=== PATIENT | female | born 1970 | race Caucasian/White ===

== ENCOUNTER 2018-07-02 10:42 | Inpatient (IN) ==
--- NOTE | 2018-07-02 12:12 | Emergency Department Note ---
Disposition Clinical Impression: Lower extremity edema, Bleeding from wound Cellulitis Qualifiers: Laterality: right Disposition: Still a Patient Condition: Fair Extremity Problem HPI - General Chief complaint: ED Extremity Problem,Nontraumatic Stated complaint: hematoma on right leg Time Seen by Provider: 07/02/18 10:59 Source: EMS Limitations: no limitations - History of Present Illness HPI Narrative: 48 YO F with right lower leg wound. Patient reports that she has had this wound for months and it has been bleeding since dressing change yesterday. Seeing Dr. Ambrocio for management. She has come from [facility]. Patient reports that she has not received proper wound care at [facility], not receiving proper and timely dressing change. She would like to be admitted for care. She reports night sweats, fever, and chills for a week. Has tingling of extremities and weakness secondary to diabetic neuropathy. Was diagnosed with cellulitis bilateral of lower extremities on vancomycin. Denies CP and SOB. Pain Scale: 10 - Related Data Home Medications Medication Instructions Recorded Confirmed Diltiazem CD (24hr) [Cardizem CD] 240 mg PO BID 08/11/15 03/21/18 HydrOXYzine 1 - 2 tab PO Q6H 08/11/15 03/21/18 Cyanocobalamin (Vitamin B-12) 1,000 mcg PO DAILY 03/22/17 03/21/18 [Vitamin B12] Ferrous Sulfate 325 mg PO BIDWM 03/22/17 03/21/18 Furosemide [Lasix] 2 tab PO HS 03/22/17 03/21/18 Insulin Glargine,Hum.rec.anlog 60 unit SQ BID 03/22/17 03/21/18 [Toujeo Solostar] Melatonin 5 mg PO HS 03/22/17 03/21/18 Metformin HCl [Fortamet] 1,000 mg PO BID 03/22/17 03/21/18 Methocarbamol [Robaxin] 750 mg PO HS 03/22/17 03/21/18 Dulaglutide [Trulicity] 0.75 mg SQ 03/21/18 Montelukast [Singulair] 10 mg PO HS 03/21/18 03/21/18 Oxybutynin [Ditropan] 5 mg PO DAILY 03/21/18 03/21/18 Vancomycin HCl 1G/200 ml Bag 06/27/18 Atorvastatin [Lipitor] 40 mg PO HS 07/02/18 07/02/18 Cetirizine HCl [All Day Allergy] 10 mg PO DAILY 07/02/18 07/02/18 FLUoxetine HCl [Prozac] 40 mg PO DAILY 07/02/18 07/02/18 Insulin LISPRO [HumaLOG] 50 units SQ TIDWM 07/02/18 07/02/18 Levofloxacin [Levaquin] 750 mg PO DAILY 07/02/18 07/02/18 Losartan Potassium [Cozaar] 50 mg PO DAILY 07/02/18 07/02/18 Omeprazole [PriLOSEC] 40 mg PO DAILY 07/02/18 07/02/18 Oxycodone HCl 15 mg PO TID 07/02/18 07/02/18 Pregabalin [Lyrica] 150 mg PO TID 07/02/18 07/02/18 Promethazine [Phenergan] 25 mg PO Q8H PRN 07/02/18 07/02/18 Venlafaxine HCl [Venlafaxine HCl 75 mg PO Q48H 07/02/18 07/02/18 ER] Previous Rx's Medication Instructions Recorded Rivaroxaban [Xarelto] 10 mg PO DAILY #30 tablet 03/21/18 Allergies Allergy/AdvReac Type Severity Reaction Status Date / Time Penicillins Allergy Intermediate Rash Verified 03/21/18 13:13 pioglitazone [From Actos] Allergy Intermediate See Verified 03/21/18 13:13 Comments sitagliptin [From Januvia] Allergy Intermediate See Verified 03/21/18 13:13 Comments Sulfa (Sulfonamide Allergy Intermediate Hives Verified 03/21/18 13:13 Antibiotics) nabumetone Allergy Muscle Pain Verified 03/21/18 13:13 sulfamethoxazole Allergy Rash Verified 03/21/18 13:13 [From Bactrim] trimethoprim [From Bactrim] Allergy Rash Verified 03/21/18 13:13 Constitutional: Reports: fever, chills, weakness, night sweats Cardiovascular: Denies: chest pain, palpitations Respiratory: Denies: cough, dyspnea Gastrointestinal: Denies: abdominal pain, nausea, vomiting, diarrhea, constipation Genitourinary: Reports: other (states she has incontinence and wears adult diapers). Denies: urgency, dysuria, frequency Past Medical History - Past Medical History Medical history: Reports: DVT, diabetes, GERD, hyperlipidemia, hypertension Surgical history: Reports: appendectomy Psychiatric history: Reports: anxiety, depression - Social History Smoking Status: Former smoker Smokeless Tobacco Status: No Alcohol use: Reports: none Drug use: Reports: none Physical Exam - General Limitations: no limitations General appearance: alert, in no apparent distress - Head Head exam: atraumatic, normocephalic - Chest Chest inspection: Present: normal inspection, symmetric chest wall rise - Respiratory Respiratory exam: Present: normal lung sounds bilaterally - Cardiovascular Cardiovascular exam: Present: regular rate, normal rhythm, normal heart sounds - Expanded Lower Extremity Exam Lower leg exam: Present: full ROM, tenderness, swelling, laceration, deformity, erythema, other ([id number] sanguinous, odorous, draning wound with irregular borders. Cellulitis b/l. Bleeding is controlled.). Absent: abrasion, dislocation, Homans' sign, Achilles tendon intact Foot/toe exam: Present: swelling, ecchymosis Neurovascular/Tendon exam: Present: normal capillary refill - Neurological Exam Neurological exam: Present: alert, oriented X3 Course Course Narrative: 48 YO F with RLE wound in foot with history of bilateral cellulitis on vanc. RLE wound is [id number], draining, and sanguinous. Spoke to Dr. Ambrocio and he agrees to manage her wound if she is admitted. Asked us to order wound cultures. Spoke with hospitalist and he is okay to admit her and asks us to order LE CT. to monitor cellulitis. - Ordered BMP, CBC, RLE CT - Patient admitted to hospitalist - Ordered wound culture - Reevaluation(s) Reevaluation #1: Patient's CBC and BMP back. Slightly low Hgb 10, no treatment necessary. Okay to admit. Vital Signs Temperature 98.8 F 07/02/18 10:51 Pulse Rate 88 07/02/18 10:51 Respiratory Rate 18 07/02/18 10:51 Blood Pressure 120/59 07/02/18 10:51 O2 Sat by Pulse Oximetry 95 07/02/18 10:51 Temperature 98.8 F 07/02/18 10:51 Pulse Rate 85 07/02/18 13:17 Respiratory Rate 18 07/02/18 10:51 Blood Pressure 120/59 07/02/18 10:51 O2 Sat by Pulse Oximetry 100 07/02/18 13:17 Oxygen Delivery Oxygen Delivery Room Air Extremity Problem, Nontraumati - Lab Data Result diagrams: 07/02/18 14:10 07/02/18 14:10
--- NOTE | 2018-07-02 12:47 | Emergency Department Note ---
Disposition Clinical Impression: Lower extremity edema, Bleeding from wound Cellulitis Qualifiers: Site of cellulitis: extremity Site of cellulitis of extremity: lower extremity Laterality: right Qualified Code(s): L03.115 - Cellulitis of right lower limb Disposition: Admitted As Inpatient Condition: Fair General Adult HPI - General Chief complaint: ED Extremity Problem,Nontraumatic Stated complaint: hematoma on right leg Time Seen by Provider: 07/02/18 10:59 Source: EMS Limitations: no limitations Nursing Notes Reviewed: Yes Vital Signs Reviewed: Yes - History of Present Illness Pain Scale: 10 - Related Data Home Medications Medication Instructions Recorded Confirmed Diltiazem CD (24hr) [Cardizem CD] 240 mg PO BID 08/11/15 03/21/18 HydrOXYzine 1 - 2 tab PO Q6H 08/11/15 03/21/18 Insulin ASPART [NovoLOG] 0 unit SQ AD 08/11/15 03/21/18 Omeprazole [PriLOSEC] 40 mg PO QAM 08/11/15 03/21/18 OxyCODONE Immed Rel [Roxicodone] 15 mg PO TID PRN 08/11/15 03/21/18 Promethazine [Phenergan] 1 tab PO Q4H PRN 08/11/15 03/21/18 Venlafaxine HCl [Effexor Xr] 3 tab PO HS 08/11/15 03/21/18 Cyanocobalamin (Vitamin B-12) 1,000 mcg PO DAILY 03/22/17 03/21/18 [Vitamin B12] Ferrous Sulfate 325 mg PO BIDWM 03/22/17 03/21/18 Furosemide [Lasix] 2 tab PO HS 03/22/17 03/21/18 Insulin Glargine,Hum.rec.anlog 60 unit SQ BID 03/22/17 03/21/18 [Toujeo Solostar] Ipratropium [place] 2 spray NS BID 03/22/17 03/21/18 Melatonin 5 mg PO HS 03/22/17 03/21/18 Metformin HCl [Fortamet] 1,000 mg PO BID 03/22/17 03/21/18 Methocarbamol [Robaxin] 750 mg PO HS 03/22/17 03/21/18 Pregabalin [Lyrica] 150 mg PO TID 03/22/17 03/21/18 Dulaglutide [Trulicity] 0.75 mg SQ 03/21/18 Montelukast [Singulair] 10 mg PO HS 03/21/18 03/21/18 Oxybutynin [Ditropan] 5 mg PO DAILY 03/21/18 03/21/18 Rosuvastatin Calcium [Crestor] 20 mg PO 03/21/18 Insulin Glargine,Hum.rec.anlog 0 units SQ 06/27/18 [Toujeo Solostar] Vancomycin HCl 1G/200 ml Bag 06/27/18 Previous Rx's Medication Instructions Recorded Lactobacillus Acidophilus 1 each PO TID #42 capsule 03/21/18 [Acidophilus Lactobacillus] Rivaroxaban [Xarelto] 10 mg PO DAILY #30 tablet 03/21/18 Allergies Allergy/AdvReac Type Severity Reaction Status Date / Time Penicillins Allergy Intermediate Rash Verified 03/21/18 13:13 pioglitazone [From Actos] Allergy Intermediate See Verified 03/21/18 13:13 Comments sitagliptin [From Januvia] Allergy Intermediate See Verified 03/21/18 13:13 Comments Sulfa (Sulfonamide Allergy Intermediate Hives Verified 03/21/18 13:13 Antibiotics) nabumetone Allergy Muscle Pain Verified 03/21/18 13:13 sulfamethoxazole Allergy Rash Verified 03/21/18 13:13 [From Bactrim] trimethoprim [From Bactrim] Allergy Rash Verified 03/21/18 13:13 Past Medical History - Past Medical History Medical history: Reports: DVT, diabetes, GERD, hyperlipidemia, hypertension Surgical history: Reports: appendectomy Psychiatric history: Reports: anxiety, depression - Social History Smoking Status: Former smoker Smokeless Tobacco Status: No Alcohol use: Reports: none Drug use: Reports: none Physical Exam - General Limitations: no limitations General appearance: alert, in no apparent distress Course Vital Signs Temperature 98.8 F 07/02/18 10:51 Pulse Rate 88 07/02/18 10:51 Respiratory Rate 18 07/02/18 10:51 Blood Pressure 120/59 07/02/18 10:51 O2 Sat by Pulse Oximetry 95 07/02/18 10:51 Temperature 98.8 F 07/02/18 10:51 Pulse Rate 85 07/02/18 13:17 Respiratory Rate 18 07/02/18 10:51 Blood Pressure 120/59 07/02/18 10:51 O2 Sat by Pulse Oximetry 100 07/02/18 13:17 Oxygen Delivery Oxygen Delivery Room Air Medical Decision Making - MDM Narrative Medical decision making narrative: 1330 hrs.: Spoke the hospital states that they would take the patient. Her labs are drawn in the outpatient setting and we will have access to the sore repeat this today. They also asked that we get a CT of that leg which I think is reasonable. Once we see the labs back we will go ahead and bring her upstairs for admission. And we have also spoken with podiatry they will see her in the hospital. Impression is acute on chronic cellulitis right lower extremity. #2 is bleeding wound to right lower extremity. #3 is diabetes. Chronic Lower Extremity CT 07/02/18 12:48 IMPRESSION: 1. Large mildly complex fluid collection centered within the lateral soft tissues of the right lower extremity measuring approximately 5.0 x 13.5 x 22.5 cm. Findings most suggestive of hematoma given history of trauma. No gas identified within the fluid collection. 2. Extensive soft tissue edema with associated skin thickening involving the right lower extremity. Similar edema and skin thickening of the partially imaged left lower extremity. Findings may reflect longstanding venous stasis/lymph edema. Recommend clinical correlation to exclude superimposed cellulitis. 3. No acute osseous abnormality. No CT evidence for osteomyelitis. D/ / Camron Chery MD / Camron Chery MD Interpreting Provider: Camron Chery MD 1455 hrs.: Patient's anemia has a hemoglobin 10.5 which is good for her. CT is done she has got her vancomycin for this morning and hospitalist as accepted her for admission consult to podiatry's in place. - Lab Data Result diagrams: 07/02/18 14:10 07/02/18 14:10 Attestation Statement - Attestation Attestation: This documentation is done with the assistance of Dragbrendan dictation. Despite efforts made to ensure accuracy, there may be inaccuracies in jewish history professor or spelling and typographical errors. I examined this patient and my medical decision-making was reviewed with the Resident Physician. I agree with the documented findings, disposition and treatment plan as described except to the extent set forth below. Patient seen and evaluated by Dr. lozano and myself, I agree with his evaluation management plan , I supervised the care the patient's stay. Patient presents today with an area on her right leg that has been bleeding for the last 24 hours. She has a history of chronic lymphedema and cellulitis in her lower extremities. She has been seen by Dr. Ambrocio here. She is on vancomycin tolerating that well. She has a PICC line in her right arm. She says this area started bleeding yesterday after a dressing change and they have not been ill to get it stopped. We removed the dressing. She still having oozing from the site that about 4 x 6 cm along the lateral aspect of the right calf. She says she does not feel much in her legs it is not tender. She still has cellulitis on the area. This is an are not improved compared to the left leg. She has no bony tenderness. No crepitance. She has chronic changes on the leg consistent with her previous cellulitis. And this is on multiple episodes in the past according to her. We will check labs she had them checked at the skilled nursing today but we do not have access to those. Which speak with Dr. Ambrocio he asked that we do not get a wound culture on the area. And we will bring her in for admission. She is in agreement with this plan.
[2018-07-02 14:28] LABS: Basophils % 0.4 %; Eosinophils # 0.3 K/mcL (0.0-0.6); Eosinophils % 3.1 %; Hematocrit 31.4 % (35.3-44.9); Hemoglobin 10.1 g/dL (11.5-15.4); Immature Granulocytes % 1.7 % (0-4); Lymphocytes # 0.9 K/mcL (0.6-4.6); Lymphocytes % 10.5 %; Mean Corpuscular HGB Conc 32.2 g/dL (31.6-35.5); Mean Corpuscular Hemoglobin 30.6 pg (28.0-33.3); Mean Corpuscular Volume 95.2 fL (83.0-100.0); Mean Platelet Volume 10.2 fL (9.4-12.4); Monocytes # 0.7 K/mcL (0.0-1.3); Monocytes % 8.5 %; Neutrophils # 6.4 K/mcL (1.6-8.9); Platelet Count 273 K/mcL (140-400); Red Cell Distribution Width 14.2 % (11.5-14.5); Segmented Neutrophils % 75.8 %
[2018-07-02 14:45] LABS: BUN/Creatinine Ratio 10 (6-26); Blood Urea Nitrogen 8 mg/dL (6-20); Calcium 8.9 mg/dL (8.6-10.3); Carbon Dioxide 34 mEq/L (23-29); Chloride 101 mEq/L (98-107); Glucose 91 mg/dL (70-105); Osmolality,Calculated 290 (280-300); Potassium 3.5 mEq/L (3.5-5.1); Sodium 141 mEq/L (136-145); eGFR For Non-African Americans > 60 (> 60)
--- NOTE | 2018-07-02 16:10 | Internal Med History&Physical ---
Addendum entered and electronically signed by Selma Overton CNP 07/02/18 16:49: [facility]. Original Note: <Selma Overton - Last Filed: 07/02/18 16:11> Date of Encounter: 07/02/18 Time of Encounter: 15:55 Internal Medicine - H&P: HPI Chief complaint: Right lower extremity cellulitis Admitted From: Long-term Nursing Facility Plans for Post Hospital Care: Transfer Residential Facility History of present illness: Ms. Chiang is a 48 year old female with past medical history of GERD, hypertension, diabetes, morbid obesity, lymphedema, COLIN. Patient was admitted to the emergency department from [facility] where she is staying for rehabilitation and wound care, for acute on chronic right lower extremity cellulitis, bleeding from her wound. Pt states that she has had cellulitis for 3 weeks. She has been getting wound care at [facility] and reports that yesterday during cleaning and dressing change, her lateral RLE "popped open and squirted at them." Pt with large open, bleeding wound covering the entirety lateral RLE. Pt denies fever, chills, abdominal pain, headache, dizziness, nausea, vomiting, diarrhea, or chest pain. She reports minimal pain to RLE. Pt will be admitted for IV antibiotics and for observation status. Time spent with pt approximately 20 minutes. Past Med Surg Social Fam HX - Past Medical History Medical history: DVT, diabetes, GERD, hyperlipidemia, hypertension Additional medical history: Sleep apnea, Lymphedema, DM neuropathy, Cellulitis, Psychiatric history: anxiety, depression - Past Surgical History Surgical History: appendectomy - Social History Smoking Status: Former smoker Smokeless Tobacco Status: No Alcohol use: none Drug use: none - Family History Mother Family Member Ethnicity: Non- Living Status: Hx Family Cardiac Disorders: Yes Hx Family Respiratory Disorders: No Hx Family Cancer: No Hx Family GI Disorders: No Hx Family Endocrine Disorder: No Hx Family Neuromuscular Disorders: No Hx Family Neurologic Disorders: No Hx Family HEENT Disorders: No Hx Family Autoimmune Disorders: No Father Adopted: No Living Status: Hx Family Cardiac Disorders: Yes Hx Family Respiratory Disorders: Yes Hx Family Cancer: No Hx Family GI Disorders: No Hx Family Endocrine Disorder: Yes Hx Family Neuromuscular Disorders: No Hx Family Neurologic Disorders: No Hx Family HEENT Disorders: No Hx Family Autoimmune Disorders: No Internal Medicine - H&P: Meds Diltiazem CD (24hr) [Cardizem CD] 240 mg PO BID 08/11/15 [History] hydrOXYzine pamoate [HydrOXYzine Pamoate] 25 - 50 mg PO Q6H PRN 08/11/15 [ History] Cyanocobalamin (Vitamin B-12) [Vitamin B12] 2,500 mcg PO DAILY 03/22/17 [History ] Ferrous Sulfate 325 mg PO BIDWM 03/22/17 [History] Furosemide [Lasix] 40 mg PO BID 03/22/17 [History] Insulin Glargine,Hum.rec.anlog [Toujeo Solostar] 65 unit SQ BID 03/22/17 [ History] Melatonin 5 mg PO HS 03/22/17 [History] Metformin HCl [Fortamet] 1,000 mg PO BID 03/22/17 [History] Methocarbamol [Robaxin] 750 mg PO HS 03/22/17 [History] Dulaglutide [Trulicity] 0.75 mg SQ QWEEK 03/21/18 [History] Montelukast [Singulair] 10 mg PO HS 03/21/18 [History] Oxybutynin [Ditropan] 5 mg PO BID 03/21/18 [History] Rivaroxaban [Xarelto] 10 mg PO DAILY #30 tablet 03/21/18 [Rx] Vancomycin HCl 1 gm IV Q12H 06/27/18 [History] Atorvastatin [Lipitor] 40 mg PO HS 07/02/18 [History] Cetirizine HCl [All Day Allergy] 10 mg PO DAILY 07/02/18 [History] FLUoxetine HCl [Prozac] 40 mg PO DAILY 07/02/18 [History] Insulin LISPRO [HumaLOG] 50 units SQ TIDWM 07/02/18 [History] Levofloxacin [Levaquin] 750 mg PO DAILY 07/02/18 [History] Losartan Potassium [Cozaar] 50 mg PO DAILY 07/02/18 [History] Omeprazole [PriLOSEC] 40 mg PO DAILY 07/02/18 [History] Oxycodone HCl 15 mg PO TID 07/02/18 [History] Pregabalin [Lyrica] 150 mg PO TID 07/02/18 [History] Promethazine [Phenergan] 25 mg PO Q8H PRN 07/02/18 [History] Venlafaxine HCl [Venlafaxine HCl ER] 75 mg PO Q48H 07/02/18 [History] 3 Allergy/AdvReac Type Severity Reaction Status Date / Time Penicillins Allergy Intermediate Rash Verified 03/21/18 13:13 pioglitazone [From Actos] Allergy Intermediate See Verified 03/21/18 13:13 Comments sitagliptin [From Januvia] Allergy Intermediate See Verified 03/21/18 13:13 Comments Sulfa (Sulfonamide Allergy Intermediate Hives Verified 03/21/18 13:13 Antibiotics) nabumetone Allergy Muscle Pain Verified 03/21/18 13:13 sulfamethoxazole Allergy Rash Verified 03/21/18 13:13 [From Bactrim] trimethoprim [From Bactrim] Allergy Rash Verified 03/21/18 13:13 All Systems PM: A 10-system review of systems was performed and is negative for pertinent findings except as documented above in the HPI. - Constitutional Constitutional: weakness, no chills, no fatigue, no fever(s), no lethargy, no malaise, no night sweats - EENT Eyes: no change in vision, no irritation, no other visual disturbances Ears: no ear discharge, no ear pain Nose, mouth and throat: no dry mouth, no facial pain, no hoarseness, no nasal congestion, no post-nasal drip, no sinus pain, no sore throat - Cardiovascular Cardiovascular ROS IM: edema, no dyspnea, no lightheadedness, no palpitations - Respiratory Respiratory: dyspnea on exertion, no dyspnea, no pain on inspiration - Gastrointestinal Gastrointestinal: no abdominal pain, no change in bowel habits, no constipation , no diarrhea, no hematemesis, no hematochezia, no nausea, no vomiting - Genitourinary Genitourinary: no urinary frequency, no urinary hesitancy, no urinary incontinence, no urinary urgency, no vaginal discharge - Musculoskeletal Musculoskeletal ROS IM: limited range of motion, muscle weakness, no joint swelling, no numbness, no tingling - Neurological Neurological ROS: abnormal gait, no confusion, no numbness, no tingling, no weakness - Psychiatric Psychiatric: no behavioral changes, no irritability - Constitutional Vitals: Temp Pulse Resp BP Pulse Ox 98.8 F 82 20 134/71 97 07/02/18 10:51 07/02/18 15:39 07/02/18 15:39 07/02/18 15:39 07/02/18 15:39 General appearance: Present: cooperative, A&O X 3, morbidly obese, pleasant, no acute distress, answers questions appropriately Exam: As above - Head Head exam: Present: atraumatic, normal inspection, normocephalic - Eye Eye exam: Present: EOMI, conjuntiva pink, sclera anicteric. Absent: nystagmus Pupils: Present: PERRL - Neck Neck exam general surgery: Present: supple, trachea midline. Absent: lymphadenopathy, tenderness - Respiratory Respiratory exam: Present: CTAB. Absent: accessory muscle use, rales, rhonchi, wheezes - Cardiovascular Cardiovascular exam: Present: RRR, +S1, +S2. Absent: diastolic murmur, gallop, rubs, systolic murmur - GI/Abdominal GI/Abdominal exam: Present: normal bowel sounds, soft, tenderness. Absent: distended, hepatomegaly - Extremities Exam Extremities exam: Present: tenderness, warm, radial pulses palpable and symmetrical. Absent: calf tenderness, cyanotic, normal capillary refill, normal inspection, pedal edema - Neurological Exam Neurological exam: Present: abnormal gait, alert, oriented X3, no focal deficits. Absent: altered, facial droop, speech deficit - Skin Skin exam: Present: dry, normal color, warm. Absent: intact, rash Internal Med - H&P Results - Labs CBC & Chem 7: 07/02/18 14:10 07/02/18 14:10 Labs: Short CBC 07/02/18 Range/Units 14:10 WBC 8.4 (4.3-11.1) K/mcL Hgb 10.1 L (11.5-15.4) g/dL Hct 31.4 L (35.3-44.9) % Plt Count 273 (140-400) K/mcL Neutrophils # 6.4 (1.6-8.9) K/mcL BMP 07/02/18 14:10 Sodium 141 Potassium 3.5 Chloride 101 Carbon Dioxide 34 H BUN 8 Creatinine 0.78 Glucose 91 Calcium 8.9 - Assessment and plan (1) Morbid obesity Current Visit: Yes Status: Chronic Assessment and plan: Chronic. Encourage lifestyle modifications. (2) Bleeding from wound Current Visit: Yes Status: Acute Assessment and plan: Pt with bleeding from RLE wound/cellulitis. Pt states that while wound was being cleaned, the skin erutped and it has been bleeding since. Pt has been seeing Dr. Ambrocio for wound care and is also in [facility] for wound care and rehab. Podiatry consulted, will follow. Monitor H and H Wound care per podiatry (3) Lower extremity edema Current Visit: Yes Status: Acute Assessment and plan: Chronic lymphedema, also RLE edema from cellulitis and wound. Elevate Compression dressings (4) Cellulitis Current Visit: Yes Status: Chronic Assessment and plan: RLE wound, plan as above. Extremity CT shows a large, mildly complex fluid collection centered within the lateral soft tissues right lower extremity. Findings most suggestive of hematoma, no gas identified within the fluid collection. There is extensive soft tissue edema with associated skin thickening involving the right lower extremity. Alert edema and skin thickening noted in the partially imaged left lower extremity edema, may reflect long-standing venous stasis or lymphedema. No osseous abnormality and no evidence of osteomyelitis. Podiatry has been consulted and is following IV vancomycin and Zosyn Pain control as needed Monitor labs and vitals. Wound culture has been received by the lab. Lower Extremity CT 07/02/18 12:48 IMPRESSION: 1. Large mildly complex fluid collection centered within the lateral soft tissues of the right lower extremity measuring approximately 5.0 x 13.5 x 22.5 cm. Findings most suggestive of hematoma given history of trauma. No gas identified within the fluid collection. 2. Extensive soft tissue edema with associated skin thickening involving the right lower extremity. Similar edema and skin thickening of the partially imaged left lower extremity. Findings may reflect longstanding venous stasis/lymph edema. Recommend clinical correlation to exclude superimposed cellulitis. 3. No acute osseous abnormality. No CT evidence for osteomyelitis. D/ / Camron Chery MD / Camron Chery MD Interpreting Provider: Camron Chery MD Qualifiers: Site of cellulitis: extremity Site of cellulitis of extremity: lower extremity Laterality: right Qualified Code(s): L03.115 - Cellulitis of right lower limb (5) Lymphedema in adult patient Current Visit: Yes Status: Chronic Assessment and plan: Chronic. Plan as above. (6) Thrombosis Current Visit: Yes Status: Chronic Assessment and plan: Patient is on Xarelto. Continue to admission. (7) Physical debility Current Visit: Yes Status: Acute Assessment and plan: Pt with chronic physical debility related to obesity and decreased physical activity. Pt is in [facility] for rehab currently [employer] to see if there are discharge planning needs. Continue PT/OT here. Monitor for safety and falls. - Time Spent With Patient Total time spent is greater than 50% in coordination of care (as documented) at patient's floor/unit and/or counseling patient: less than 15 minutes <Pool Loyd - Last Filed: 07/03/18 13:49> Date of Encounter: 07/03/18 Internal Medicine - H&P: HPI History of present illness: Ms. Chiang is a 48 year old female All Systems PM: A 10-system review of systems was performed and is negative for pertinent findings except as documented above in the HPI. - Constitutional Vitals: Temp Pulse Resp BP Pulse Ox 98.2 F 76 14 113/56 91 07/03/18 10:50 07/03/18 10:50 07/03/18 10:50 07/03/18 10:50 07/03/18 10:50 Internal Med - H&P Results - Labs CBC & Chem 7: 07/03/18 08:00 07/03/18 03:05 Labs: Short CBC 07/02/18 07/03/18 07/03/18 Range/Units 14:10 03:05 08:00 WBC 8.4 6.6 (4.3-11.1) K/mcL Hgb 10.1 L 8.4 L D 9.2 L (11.5-15.4) g/dL Hct 31.4 L 26.1 L 28.4 L (35.3-44.9) % Plt Count 273 242 (140-400) K/mcL Neutrophils # 6.4 4.5 (1.6-8.9) K/mcL BMP 07/02/18 07/03/18 14:10 03:05 Sodium 141 141 Potassium 3.5 3.3 L Chloride 101 102 Carbon Dioxide 34 H 33 H BUN 8 8 Creatinine 0.78 0.72 Glucose 91 98 Calcium 8.9 8.2 L - Assessment and plan (1) Thrombosis Current Visit: Yes Status: Chronic (2) Cellulitis Current Visit: Yes Status: Chronic Qualifiers: Site of cellulitis: extremity Site of cellulitis of extremity: lower extremity Laterality: right Qualified Code(s): L03.115 - Cellulitis of right lower limb (3) Lymphedema in adult patient Current Visit: Yes Status: Chronic (4) Lower extremity edema Current Visit: Yes Status: Acute (5) Bleeding from wound Current Visit: Yes Status: Acute (6) Morbid obesity Current Visit: Yes Status: Chronic (7) Physical debility Current Visit: Yes Status: Acute - Time Spent With Patient Total time spent is greater than 50% in coordination of care (as documented) at patient's floor/unit and/or counseling patient: - Attending Attestation Seen and assessed. Continue management for lower extremity cellulitis. Agree with plan per GLASS SILVERER
[2018-07-02] MEDS ORDERED: traMADol 50 MG TABLET PO PRN (16:40)
[2018-07-02] MEDS ORDERED: Naloxone 0.4 MG/ML INJ IVP PRN (16:40)
[2018-07-02] MEDS ORDERED: hydrOXYzine pamoate 25 MG CAPSULE PO PRN (16:44)
[2018-07-02] MEDS ORDERED: *HR* Dextrose 50 % in Water (Syg) 50 ML SYRINGE IVP PRN (16:48)
[2018-07-02] MEDS ORDERED: Dextrose Gel 15 GM/37.5 ML TUBE PO PRN ×2 (16:48)
[2018-07-02] MEDS ORDERED: D5% in Water 1,000 ML IVC PRN (16:48)
[2018-07-02] MEDS ORDERED: Vancomycin 1,000 MG VIAL IVPB SCH (17:00)
[2018-07-02] MEDS: Diltiazem CD (24hr) 240 MG CAPSULE PO SCH (21:11)
[2018-07-02] MEDS: Pregabalin 75 MG CAPSULE PO SCH (21:12)
[2018-07-02] MEDS: Melatonin 3 MG TABLET PO SCH (21:12)
[2018-07-02] MEDS: Methocarbamol 750 MG TABLET PO SCH (21:13)
[2018-07-02] MEDS: *HR* OxyCODONE Immed Rel 15 MG TABLET PO SCH (21:14)
[2018-07-02] MEDS: Furosemide 20 MG TABLET PO SCH (21:15)
[2018-07-03] MEDS: Insulin LISPRO 300 UNITS/3 ML VIAL SQ SCH ×5 (00:50→21:03)
[2018-07-03 04:29] LABS: Basophils % 0.5 %; Eosinophils # 0.2 K/mcL (0.0-0.6); Eosinophils % 2.9 %; Hematocrit 26.1 % (35.3-44.9); Immature Granulocytes % 1.2 % (0-4); Lymphocytes # 1.2 K/mcL (0.6-4.6); Lymphocytes % 17.9 %; Mean Corpuscular HGB Conc 32.2 g/dL (31.6-35.5); Mean Corpuscular Hemoglobin 29.8 pg (28.0-33.3); Mean Corpuscular Volume 92.6 fL (83.0-100.0); Mean Platelet Volume 10.8 fL (9.4-12.4); Monocytes # 0.6 K/mcL (0.0-1.3); Monocytes % 9.1 %; Neutrophils # 4.5 K/mcL (1.6-8.9); Platelet Count 242 K/mcL (140-400); Red Blood Count 2.82 M/mcL (3.82-4.97); Red Cell Distribution Width 14.4 % (11.5-14.5); Segmented Neutrophils % 68.4 %
[2018-07-03 04:33] LABS: Hemoglobin 8.4 g/dL (11.5-15.4)
[2018-07-03 04:49] LABS: BUN/Creatinine Ratio 11 (6-26); Blood Urea Nitrogen 8 mg/dL (6-20); Calcium 8.2 mg/dL (8.6-10.3); Carbon Dioxide 33 mEq/L (23-29); Chloride 102 mEq/L (98-107); Glucose 98 mg/dL (70-105); Osmolality,Calculated 290 (280-300); Potassium 3.3 mEq/L (3.5-5.1); Sodium 141 mEq/L (136-145); eGFR For Non-African Americans > 60 (> 60)
[2018-07-03] MEDS: Acetaminophen 325 MG TABLET PO PRN (06:03)
[2018-07-03] MEDS: Cyanocobalamin (B-12) 1,000 MCG TABLET PO SCH (08:05)
[2018-07-03] MEDS: Furosemide 20 MG TABLET PO SCH ×2 (08:05→17:41)
[2018-07-03] MEDS: FLUoxetine 20 MG CAPSULE PO SCH (08:06)
[2018-07-03] MEDS: Pregabalin 75 MG CAPSULE PO SCH ×3 (08:06→21:02)
[2018-07-03] MEDS: Loratadine 10 MG TABLET PO SCH (08:07)
[2018-07-03] MEDS: *HR* OxyCODONE Immed Rel 15 MG TABLET PO SCH ×3 (08:07→21:02)
[2018-07-03] MEDS: Venlafaxine XR (24 HR) 75 MG CAP.ER.24H PO SCH (08:07)
[2018-07-03] MEDS: Diltiazem CD (24hr) 240 MG CAPSULE PO SCH ×2 (08:07→21:02)
[2018-07-03 08:31] LABS: Hematocrit 28.4 % (35.3-44.9); Hemoglobin 9.2 g/dL (11.5-15.4)
--- NOTE | 2018-07-03 11:33 | Infectious Disease Consult ---
Date of Encounter: 07/03/18 Time of Encounter: 11:10 Assessment and Plan (1) Venous stasis dermatitis Status: Acute Assessment and plan: Location: BLE. Clinically, the legs do not have cellulitis-like picture are more likely due to chronic venous stasis. Recommend referral to the lymphedema clinic once the patient's wound is healed. Stop Vancomycin and observe. No further recommendations from the ID team. Will sign off. Please re-consult PRN. Qualifiers: Laterality: bilateral Qualified Code(s): I87.2 - Venous insufficiency ( chronic) (peripheral) (2) Hematoma Status: Acute Assessment and plan: Location: RLE. Secondary to traumatic leg injury several weeks ago. CT of the RLE showed a Large mildly complex fluid collection centered within the lateral soft tissues of the right lower extremity measuring approximately 5.0 x 13.5 x 22.5 cm. Findings most suggestive of hematoma given history of trauma. No gas identified within the fluid collection. There was also extensive soft tissue edema with associated skin thickening involving the right lower extremity. Similar edema and skin thickening of the partially imaged left lower extremity. Findings may reflect longstanding venous stasis/lymph edema. Recommend clinical correlation to exclude superimposed cellulitis. No acute osseous abnormality. No CT evidence for osteomyelitis. Podiatry consulted. Await recommendations. No active bleeding notd on exam. Trend H & H. Anticoagulation management per the primary team. (3) Traumatic leg injury Status: Acute Assessment and plan: Secondary to fall. Clinically, does not appear infected. Wound culture pending. Wound care per the podiatry team. Qualifiers: Encounter type: initial encounter Laterality: right Qualified Code(s): S89.91XA - Unspecified injury of right lower leg, initial encounter (4) Bleeding from wound Status: Acute (5) Lower extremity edema Status: Acute Assessment and plan: Secondary to lymphedema. Management per the podiatry team. (6) Lymphedema in adult patient Status: Chronic (7) Morbid obesity Status: Chronic (8) Diabetes Status: Acute Assessment and plan: Uncontrolled. HgbA1C 8.2%. Recommend aggressive glucose monitoring and control to promote wound healing and prevent re-infection. Management per the primary team. 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 CXR showed that it needs advanced 11 centimeters. Discussed with VAT who are unavailable today. States okay to use for now and they will evaluate in the AM. Advised nursing. Qualifiers: Encounter type: initial encounter Qualified Code(s): T82.598A - Other mechanical complication of other cardiac and vascular devices and implants, initial encounter Infectious Disease HPI - Data of Consult Patient: new to practice Consult date: 07/03/18 Requesting Physician: Pool Loyd Primary Care Provider: Delfino Valdes DO - Consult Narrative Reason for consult: Cellulitis History of present illness: Ms. Chiang is a 48 year old female with a past medical history of DVT, diabetes , GERD, hyperlipidemia, hypertension, lymphedema, obstructive sleep apnea, and morbid obesity. The patient was admitted to the hospital July 02 for right leg hematoma and cellulitis. We are consulted July 03 for further recommendations for right lower extremity cellulitis. Briefly, the patient is 48-year-old female with past medical history as stated above. Apparently, the patient sustained multiple falls a few weeks ago resulting in a right lower extremity wound that has been nonhealing. She was evaluated in the emergency department and discharged home. She states she then fell again at home and was taken to the ER at [facility] where she was hospitalized. She received IV antibiotics and was discharged to a local extended care facility for wound care and IV antibiotics. She states she has been on IV vancomycin at the care home since she was discharged from the hospital. She was evaluated in wound care on June [address] Ambrocio and received wound care recommendations. On Monday, the nurses at the facility change her dressing and it started to bleed so she was brought to the emergency department for evaluation. Upon arrival to the ER, the patient is afebrile and hemodynamically stable. Her white blood cell count was normal. Kidney function was within normal limits. She had a CT of the right lower extremity that showed a large mildly complex fluid collection centered within the lateral soft tissue of the right lower extremity measuring approximately 5 x 13 x 22 cm most suggestive of a hematoma given the history of trauma. There is no gas identified within the "fluid collection. There was also noted to be 6 sensitive soft tissue edema with associated skin thickening involving the right lower extremity with similar edema and skin thickening of the partially imaged left lower extremity. Findings may reflect long-standing venous stasis/ lymphedema with possible superimposed cellulitis. There is no acute osseous abnormality or CT evidence for osteomyelitis. The patient was started on IV vancomycin and admitted to the hospital for further evaluation. Since admission, the patient has remained afebrile and hemodynamically stable. Podiatry was been consulted and we are awaiting their recommendations. Wound culture has been obtained and is pending. Currently, the patient is on IV vancomycin. We have been asked to evaluate and make further recommendations. During my exam today, the patient endorsed a history as stated above. She reports subjective fevers and chills and shivers at the care home. She reports intermittent headache with neck pain, but denies weakness or dizziness. She denies any congestion, earache, or sore throat. She denies any chest pain , shortness of breath, or cough. She reports chronic intermittent nausea secondary to her oral medications, but denies any vomiting or diarrhea. She denies any urinary complaints, appetite changes, or abdominal pain. She reports her blood sugars were running high at the care home, but seems to be doing fine here. She does report some pain at the site of the ulceration, but otherwise denies extremity pain. She reports that her legs are swollen, but not particularly painful. She denies any oral thrush or new skin lesions. She denies any issues with the use of her PICC line. The patient currently lives a local extended care facility. Prior to that, she lived at home by herself and was very independent. 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 She denies any tobacco, alcohol, or illicit drug use. She denies any chronic infectious diseases. She denies any travel outside the [facility]. She does have 2 dogs at home, but denies any bites or scratches. CC: Pool Loyd Past Med Surg Social Fam HX - Past Medical History Attestation: Yes The following information was validated with the patient. Source: patient, old records reviewed, nursing notes reviewed Medical history: DVT, diabetes, GERD, hyperlipidemia, hypertension Additional medical history: Sleep apnea, Lymphedema, DM neuropathy, Cellulitis, Psychiatric history: anxiety, depression - Past Surgical History Surgical History: appendectomy - Social History Smoking Status: Former smoker Smokeless Tobacco Status: No Alcohol use: none Drug use: none Occupational status: disabled Current living situation: Home - Independent Activity Level: Independent ambulation Recent Out of Country Travel Within the Last 8 Weeks: No Exposure or Possible Exposure to Illness During Travel: No - Family History Mother Family Member Ethnicity: Non- Living Status: Hx Family Cardiac Disorders: Yes Hx Family Respiratory Disorders: No Hx Family Cancer: No Hx Family GI Disorders: No Hx Family Endocrine Disorder: No Hx Family Neuromuscular Disorders: No Hx Family Neurologic Disorders: No Hx Family HEENT Disorders: No Hx Family Autoimmune Disorders: No Father Adopted: No Living Status: Hx Family Cardiac Disorders: Yes Hx Family Respiratory Disorders: Yes Hx Family Cancer: No Hx Family GI Disorders: No Hx Family Endocrine Disorder: Yes Hx Family Neuromuscular Disorders: No Hx Family Neurologic Disorders: No Hx Family HEENT Disorders: No Hx Family Autoimmune Disorders: No Infectious Disease-CN:Meds Diltiazem CD (24hr) [Cardizem CD] 240 mg PO BID 08/11/15 [History] hydrOXYzine pamoate [HydrOXYzine Pamoate] 25 - 50 mg PO Q6H PRN 08/11/15 [ History] Cyanocobalamin (Vitamin B-12) [Vitamin B12] 2,500 mcg PO DAILY 03/22/17 [History ] Ferrous Sulfate 325 mg PO BIDWM 03/22/17 [History] Furosemide [Lasix] 40 mg PO BID 03/22/17 [History] Insulin Glargine,Hum.rec.anlog [Toujeo Solostar] 65 unit SQ BID 03/22/17 [ History] Melatonin 5 mg PO HS 03/22/17 [History] Metformin HCl [Fortamet] 1,000 mg PO BID 03/22/17 [History] Methocarbamol [Robaxin] 750 mg PO HS 03/22/17 [History] Dulaglutide [Trulicity] 0.75 mg SQ QWEEK 03/21/18 [History] Montelukast [Singulair] 10 mg PO HS 03/21/18 [History] Oxybutynin [Ditropan] 5 mg PO BID 03/21/18 [History] Rivaroxaban [Xarelto] 10 mg PO DAILY #30 tablet 03/21/18 [Rx] Vancomycin HCl 1 gm IV Q12H 06/27/18 [History] Atorvastatin [Lipitor] 40 mg PO HS 07/02/18 [History] Cetirizine HCl [All Day Allergy] 10 mg PO DAILY 07/02/18 [History] FLUoxetine HCl [Prozac] 40 mg PO DAILY 07/02/18 [History] Insulin LISPRO [HumaLOG] 50 units SQ TIDWM 07/02/18 [History] Levofloxacin [Levaquin] 750 mg PO DAILY 07/02/18 [History] Losartan Potassium [Cozaar] 50 mg PO DAILY 07/02/18 [History] Omeprazole [PriLOSEC] 40 mg PO DAILY 07/02/18 [History] Oxycodone HCl 15 mg PO TID 07/02/18 [History] Pregabalin [Lyrica] 150 mg PO TID 07/02/18 [History] Promethazine [Phenergan] 25 mg PO Q8H PRN 07/02/18 [History] Venlafaxine HCl [Venlafaxine HCl ER] 75 mg PO Q48H 07/02/18 [History] 3 Allergy/AdvReac Type Severity Reaction Status Date / Time Penicillins Allergy Intermediate Rash Verified 03/21/18 13:13 pioglitazone [From Actos] Allergy Intermediate See Verified 03/21/18 13:13 Comments sitagliptin [From Januvia] Allergy Intermediate See Verified 03/21/18 13:13 Comments Sulfa (Sulfonamide Allergy Intermediate Hives Verified 03/21/18 13:13 Antibiotics) nabumetone Allergy Muscle Pain Verified 03/21/18 13:13 sulfamethoxazole Allergy Rash Verified 03/21/18 13:13 [From Bactrim] trimethoprim [From Bactrim] Allergy Rash Verified 03/21/18 13:13 All systems: reviewed and no additional remarkable complaints except as stated Exam - Constitutional Vitals: Temp Pulse Resp BP Pulse Ox 97.9 F 67 16 115/63 93 07/03/18 05:29 07/03/18 05:29 07/03/18 05:29 07/03/18 05:29 07/03/18 05:29 General appearance: cooperative, morbidly obese, no acute distress - Head Head exam: Present: atraumatic, normal inspection, normocephalic - Eye Eye exam: Present: EOMI, normal appearance, PERRL Pupils: Present: normal accommodation - ENT ENT exam: Present: mucous membranes moist - Neck Neck exam: Present: normal inspection - Respiratory Respiratory exam: Present: CTAB. Absent: rales, respiratory distress, rhonchi, wheezes - Cardiovascular Cardiovascular exam: Present: RRR, +S1, +S2 - GI/Abdominal GI/Abdominal exam: Present: distended (obese), normal bowel sounds, soft. Absent: tenderness - Extremities Exam Extremities exam: Present: pedal edema. Absent: joint swelling, normal inspection (Chronic lymphedema and venous stasis changes noted to the BLE), tenderness Additional comments: LArge superifical ulceration noted to the lateral aspect of the RLE with underlying fluctuance. Large amount of old bloody drainage noted on the dressing. No active bleeding noted at this time. No foul odor or purulence noted. - Neurological Exam Neurological exam: Present: alert, oriented X3, no focal deficits - Psychiatric Psychiatric exam: Present: normal affect, normal mood - Skin Skin exam: Present: dry, intact, normal color, warm Infectious Disease CN: Results - Labs CBC & Chem 7: 07/04/18 06:35 07/04/18 06:35 Consult Discharge Plan - Plan Referrals: Delfino Valdes DO [Primary Care Provider] - - Attending Attestation I examined this patient and my medical decision-making was reviewed with the Resident Physician. I agree with the documented findings, disposition and treatment plan as described except to the extent set forth below. This is an addendum to original report dictated by Imelda Thakur CARE ASSISTANT please refer to Imelda's note for full details. Patient is a 48-year-old woman with past medical history mentioned below including multiple DVTs in the past and bilateral lower extremities and upper extremity on blood thinners had trauma to the back of right calf. CT reveals a 22 x 13 x 5 cm hematoma. Patient is being evaluated by surgery. Surrounding the hematoma is no erythema no fluctuance no drainage. Clinically this patient is an obvious infection. She does have this chronic ulcer with a hematoma now. She does have multiple drug allergies including sulfa and penicillin. At this point I really would stop the antibiotics and observe significant does clinically. We will defer I&D and drainage of the large hematoma to the surgery team I think the patient did benefit from that if at all possible. We will sign off she has call us with further recommendations.
--- NOTE | 2018-07-03 14:03 | Internal Med Progress Note ---
Hospitalist Progress Note - Encounter Date of Encounter: 07/03/18 Time of Encounter: 14:01 - Subjective Interval History: Pt states she fell at a gas station and hit scrapped her RLE on gas pump island. She states some clots came ou during her last wound dressing change. She denies fever, chills N/V, or diarrhea. She denies CP or SOB. - Exam Vitals: Temp Pulse Resp BP Pulse Ox 98.2 F 76 14 113/56 91 07/03/18 10:50 07/03/18 10:50 07/03/18 10:50 07/03/18 10:50 07/03/18 10:50 Exam: General appearance: Present: cooperative, A&O X 3, morbidly obese, pleasant, no acute distress, answers questions appropriately Exam: As above - Head Head exam: Present: atraumatic, normal inspection, normocephalic - Eye Eye exam: Present: EOMI, conjuntiva pink, sclera anicteric. Absent: nystagmus Pupils: Present: PERRL - Neck Neck exam general surgery: Present: supple, trachea midline. Absent: lymphadenopathy, tenderness - Respiratory Respiratory exam: Present: CTAB. Absent: accessory muscle use, rales, rhonchi, wheezes - Cardiovascular Cardiovascular exam: Present: RRR, +S1, +S2. Absent: diastolic murmur, gallop, rubs, systolic murmur - GI/Abdominal GI/Abdominal exam: Present: normal bowel sounds, soft, tenderness. Absent: distended, hepatomegaly - Extremities Exam Extremities exam: Present: Large open wound RLE with multiple blood clots. Tenderness only with palpation. Warm, radial pulses palpable and symmetrical. Absent: calf tenderness, cyanotic, normal capillary refill, normal inspection, pedal edema - Neurological Exam Neurological exam: Present: abnormal gait, alert, oriented X3, no focal deficits. Absent: altered, facial droop, speech deficit - Skin Skin exam: Present: Large open wound RLE with multiple blood clots. - Assessment and Plan (1) Hematoma of right lower extremity Current Visit: Yes Status: Acute Assessment and Plan: Pt with bleeding from RLE wound. Pt states that while wound was being cleaned, the skin erutped and it has been bleeding since. Pt has been seeing Dr. Ambrocio for wound care and is also in [facility] for wound care and rehab. Podiatry consulted, will follow. Possibility of wound debridement. Monitor H and H Wound care per podiatry (2) Cellulitis Current Visit: Yes Status: Chronic Assessment and Plan: Rule out. Wound due to hematoma and not cellulitis per ID. Will Dc Vancomycin and Zosyn. (3) Lower extremity edema Current Visit: Yes Status: Acute Assessment and Plan: Chronic lymphedema, also RLE edema from cellulitis and wound. Elevate Compression dressings (4) Morbid obesity Current Visit: Yes Status: Chronic Assessment and Plan: Chronic. Encourage lifestyle modifications such as diet and exercise. (5) DVT (deep venous thrombosis) Current Visit: Yes Status: Acute Assessment and Plan: istory of recurrent DVT. Pt reports prior DVT 2 x hannah LLE and RLE, then one to LUE making total of 5 prior DVT's. Pt is chronically on anticoag with Xarelto 10 mg PO QD which is currently on hold due to hematoma. It is also on hold due to possibility of getting wound debridement (6) Venous stasis dermatitis Current Visit: Yes Status: Acute Assessment and Plan: chronic and sometimes mistaken for cellulitis. DVT Prophylaxis: Xarelto on hold due to hematoma - Summary of Assessment and Plan Summary of Assessment and Plan: Ms. Chiang is a 48 year old female with past medical history of GERD, hypertension, diabetes, morbid obesity, lymphedema, COLIN. Patient was admitted to the emergency department from [facility] where she is staying for rehabilitation and wound care, for acute on chronic right lower extremity cellulitis, bleeding from her wound. Pt states she is away she has chronic venous stasis and stasis dermatitis and states " they keep calling it cellulitis but I know it's not. I've had this for years." Lower Extremity CT 07/02/18 12:48 IMPRESSION: 1. Large mildly complex fluid collection centered within the lateral soft tissues of the right lower extremity measuring approximately 5.0 x 13.5 x 22.5 cm. Findings most suggestive of hematoma given history of trauma. No gas identified within the fluid collection. 2. Extensive soft tissue edema with associated skin thickening involving the right lower extremity. Similar edema and skin thickening of the partially imaged left lower extremity. Findings may reflect longstanding venous stasis/lymph edema. Recommend clinical correlation to exclude superimposed cellulitis. 3. No acute osseous abnormality. No CT evidence for osteomyelitis. - Time Spent with Patient Total time spent is greater than 50% in coordination of care (as documented) at patient's floor/unit and/or counseling patient: 25 - 35 minutes Plan of Care Discussed with: patient Internal Medicine: Result - Labs CBC & Chem 7: 07/03/18 08:00 07/03/18 03:05 Labs: Short CBC 07/02/18 07/03/18 07/03/18 Range/Units 14:10 03:05 08:00 WBC 8.4 6.6 (4.3-11.1) K/mcL Hgb 10.1 L 8.4 L D 9.2 L (11.5-15.4) g/dL Hct 31.4 L 26.1 L 28.4 L (35.3-44.9) % Plt Count 273 242 (140-400) K/mcL Neutrophils # 6.4 4.5 (1.6-8.9) K/mcL BMP 07/02/18 07/03/18 14:10 03:05 Sodium 141 141 Potassium 3.5 3.3 L Chloride 101 102 Carbon Dioxide 34 H 33 H BUN 8 8 Creatinine 0.78 0.72 Glucose 91 98 Calcium 8.9 8.2 L - Impressions Impressions Chest X-Ray 07/03/18 13:32 IMPRESSION: No radiographic evidence of acute cardiopulmonary disease. Right upper extremity PICC tip overlies the proximal right subclavian vein level. This needs advanced about 11 cm. D/ / Satya Amezcua / Satya Amezcua Interpreting Provider: Satya Amezcua Consult Discharge Plan - Plan Referrals: Delfino Valdes DO [Primary Care Provider] - (2) Cellulitis Qualifiers: Site of cellulitis: extremity Site of cellulitis of extremity: lower extremity Laterality: right Qualified Code(s): L03.115 - Cellulitis of right lower limb (6) Venous stasis dermatitis Qualifiers: Laterality: bilateral Qualified Code(s): I87.2 - Venous insufficiency ( chronic) (peripheral)
[2018-07-03] MEDS ORDERED: Gadolinium Contrast Agent (WT Based) IV PRN (15:04)
--- NOTE | 2018-07-03 15:18 | Podiatry Consult Note ---
Date of Encounter: 07/02/18 Time of Encounter: 12:00 Assessment and Plan (1) Hematoma of right lower extremity Current visit: Yes Status: Acute Large hematoma right lower extremity s/p traumatic fall several weeks ago Plan: Assessed at bedside Patient very rude during visit, did not want dressing changed as she wanted to eat her meal, said it was changed already today, wanted to see , said she was just going to be sent home with a hole in her leg. Stated she was going to walk to office. Mad because I moved her tea across the room so I was able to move the bedside table and not spill it. States "it will now melt and be ruined" Large hematoma which was noted in wound care center has opened up revealing lose blood clots CT shows:1. Large mildly complex fluid collection centered within the lateral soft tissues of the right lower extremity measuring approximately 5.0 x 13.5 x 22.5 cm. Findings most suggestive of hematoma given history of trauma. No gas identified within the fluid collection. 2. Extensive soft tissue edema with associated skin thickening involving the right lower extremity. Similar edema and skin thickening of the partially imaged left lower extremity. Findings may reflect longstanding venous stasis/lymph edema. Recommend clinical correlation to exclude superimposed cellulitis. 3. No acute osseous abnormality. No CT evidence for osteomyelitis. There are chronic skin changes to BLE consistent with PVD and lymphedema however there is minimal suggestion of infectious process or cellulitis There is no purulent drainage, no odor. Borders of wound are well defined, no undermining or tunneling Wound debridement is occuring as expected. seen patient in wound care clinic, at that time surgical intervention was discussed however risks outweighed benefits as the patient is anticoagulated At that time it was determined to proceed with conservative treatment of the wound At that time orders were written to cleanse wound meticulously with soap and water rinse with clear water pat dry do not rub. Apply calcium alginate to the entire wound bed cover with gauze AVD pads Kerlix and an Brady wrap if dressing becomes soiled between schedule dressing changes it needs to be addressed and changed at that time. Recommend that we wrap compressive dressings from the distal aspect of the right ankle to the tibial tubercle Darden pole to avoid trapping fluid within, foot. We have encourage elevation at all times of her legs above her heart. Once we have addressed the wound and it is stable then we can address the lymphedema. This is a difficult situation because of her history of DVT/multiple co morbids At this time will recommend continued conservative treatment of hematoma Will order MRI to further determine if any hematoma or abscess is present ID on board and appreciated Qualifiers: Encounter type: subsequent encounter Qualified Code(s): S80.11XD - Contusion of right lower leg, subsequent encounter History of Present Illness HPI: Ms. Chiang is a 48 year old female who was admitting regarding a hematoma of the RLE which patient sustained after a traumatic fall 3 weeks ago. Patient was seen per in the wound care center 1 week ago at which time it was decided to treat hematoma conservatively. Patient reports that the skilled nursing was not taking care of her and the wound "opened up and started squirting at them". Patient is hateful and very rude. Doesnt want bothered during her lunch- Dressing intact to RLE on arrival. Patient reports that pain is minimal. No saturation noted at this time however nurses report that it is quickly saturating through. Patient has a medical hx significant for GERD, hypertension , diabetes, morbid obesity, lymphedema, COLIN. Past Med Surg Social Fam HX - Past Medical History Medical history: DVT, diabetes, GERD, hyperlipidemia, hypertension Additional medical history: Sleep apnea, Lymphedema, DM neuropathy, Cellulitis, Psychiatric history: anxiety, depression - Past Surgical History Surgical History: appendectomy - Social History Smoking Status: Former smoker Smokeless Tobacco Status: No Alcohol use: none Drug use: none - Family History Mother Family Member Ethnicity: Non- Living Status: Hx Family Cardiac Disorders: Yes Hx Family Respiratory Disorders: No Hx Family Cancer: No Hx Family GI Disorders: No Hx Family Endocrine Disorder: No Hx Family Neuromuscular Disorders: No Hx Family Neurologic Disorders: No Hx Family HEENT Disorders: No Hx Family Autoimmune Disorders: No Father Adopted: No Living Status: Hx Family Cardiac Disorders: Yes Hx Family Respiratory Disorders: Yes Hx Family Cancer: No Hx Family GI Disorders: No Hx Family Endocrine Disorder: Yes Hx Family Neuromuscular Disorders: No Hx Family Neurologic Disorders: No Hx Family HEENT Disorders: No Hx Family Autoimmune Disorders: No Medications and Allergies Diltiazem CD (24hr) [Cardizem CD] 240 mg PO BID 08/11/15 [History] hydrOXYzine pamoate [HydrOXYzine Pamoate] 25 - 50 mg PO Q6H PRN 08/11/15 [ History] Cyanocobalamin (Vitamin B-12) [Vitamin B12] 2,500 mcg PO DAILY 03/22/17 [History ] Ferrous Sulfate 325 mg PO BIDWM 03/22/17 [History] Furosemide [Lasix] 40 mg PO BID 03/22/17 [History] Insulin Glargine,Hum.rec.anlog [Toujeo Solostar] 65 unit SQ BID 03/22/17 [ History] Melatonin 5 mg PO HS 03/22/17 [History] Metformin HCl [Fortamet] 1,000 mg PO BID 03/22/17 [History] Methocarbamol [Robaxin] 750 mg PO HS 03/22/17 [History] Dulaglutide [Trulicity] 0.75 mg SQ QWEEK 03/21/18 [History] Montelukast [Singulair] 10 mg PO HS 03/21/18 [History] Oxybutynin [Ditropan] 5 mg PO BID 03/21/18 [History] Rivaroxaban [Xarelto] 10 mg PO DAILY #30 tablet 03/21/18 [Rx] Vancomycin HCl 1 gm IV Q12H 06/27/18 [History] Atorvastatin [Lipitor] 40 mg PO HS 07/02/18 [History] Cetirizine HCl [All Day Allergy] 10 mg PO DAILY 07/02/18 [History] FLUoxetine HCl [Prozac] 40 mg PO DAILY 07/02/18 [History] Insulin LISPRO [HumaLOG] 50 units SQ TIDWM 07/02/18 [History] Levofloxacin [Levaquin] 750 mg PO DAILY 07/02/18 [History] Losartan Potassium [Cozaar] 50 mg PO DAILY 07/02/18 [History] Omeprazole [PriLOSEC] 40 mg PO DAILY 07/02/18 [History] Oxycodone HCl 15 mg PO TID 07/02/18 [History] Pregabalin [Lyrica] 150 mg PO TID 07/02/18 [History] Promethazine [Phenergan] 25 mg PO Q8H PRN 07/02/18 [History] Venlafaxine HCl [Venlafaxine HCl ER] 75 mg PO Q48H 07/02/18 [History] 3 Allergy/AdvReac Type Severity Reaction Status Date / Time Penicillins Allergy Intermediate Rash Verified 03/21/18 13:13 pioglitazone [From Actos] Allergy Intermediate See Verified 03/21/18 13:13 Comments sitagliptin [From Januvia] Allergy Intermediate See Verified 03/21/18 13:13 Comments Sulfa (Sulfonamide Allergy Intermediate Hives Verified 03/21/18 13:13 Antibiotics) nabumetone Allergy Muscle Pain Verified 03/21/18 13:13 sulfamethoxazole Allergy Rash Verified 03/21/18 13:13 [From Bactrim] trimethoprim [From Bactrim] Allergy Rash Verified 03/21/18 13:13 All Systems Reviewed: as per HPI Physical Exam - Constitutional Vitals: Temp Pulse Resp BP Pulse Ox 98.0 F 79 16 116/68 92 07/03/18 14:19 07/03/18 14:19 07/03/18 14:19 07/03/18 14:19 07/03/18 14:19 General appearance: cooperative, morbidly obese, no acute distress Exam: General Examination: CONSTITUTIONAL: Alert, oriented, in no acute distress, non-toxic. EXTREMITIES: CFT 3 seconds all toes. Edema +2 and pedal pulses palpable. Skin changes consistent with chronic pvd and lymphedema. SKIN: Skin with decreased turgor, decreased subcutaneous tissue, skin thin and shiny with trophic changes associated with comorbidities as described in history.. Large open hematoma/ulceration to lateral/posterior aspect of right leg. Measures approx [id number] with unknown depth. Wound bed is covered in clotted hematoma. Hematoma has defroofed and entire hematoma is exposed. Soft to touch but does not feel as those abscess or further hematoma is remaining below. No fluctuance noted. mild surrounding edema and erythema most consistent with PVD changes and not cellulitis. Minimal suspicion of acute infectious process. No odor. No purulent drainage. Unable to assess full depth of wound. NEUROLOGIC:intact sensation to light touch Results - Labs Result Diagrams: 07/04/18 06:35 07/04/18 06:35 Labs: Abnormal lab results RBC 2.82 M/mcL (3.82-4.97) L 07/03/18 03:05 Hgb 9.2 g/dL (11.5-15.4) L 07/03/18 08:00 Hct 28.4 % (35.3-44.9) L 07/03/18 08:00 Potassium 3.3 mEq/L (3.5-5.1) L 07/03/18 03:05 Carbon Dioxide 33 mEq/L (23-29) H 07/03/18 03:05 POC Glucose 106 mg/dL (70-99) H 07/03/18 08:04 Calcium 8.2 mg/dL (8.6-10.3) L 07/03/18 03:05 H & H 07/03/18 07/03/18 Range/Units 03:05 08:00 Hgb 8.4 L D 9.2 L (11.5-15.4) g/dL Hct 26.1 L 28.4 L (35.3-44.9) % All other labs normal. Consult Discharge Plan - Plan Referrals: Delfino Valdes DO [Primary Care Provider] -
[2018-07-03] MEDS: Methocarbamol 750 MG TABLET PO SCH (21:03)
[2018-07-03] MEDS: Melatonin 3 MG TABLET PO SCH (21:03)
[2018-07-04 07:27] LABS: Eosinophils % 4.2 %; Hemoglobin 9.5 g/dL (11.5-15.4); Immature Granulocytes % 1.5 % (0-4); Lymphocytes % 16.9 %; Mean Corpuscular HGB Conc 31.7 g/dL (31.6-35.5); Mean Corpuscular Hemoglobin 30.2 pg (28.0-33.3); Mean Corpuscular Volume 95.2 fL (83.0-100.0); Mean Platelet Volume 10.3 fL (9.4-12.4); Monocytes % 9.4 %; Platelet Count 261 K/mcL (140-400); Red Blood Count 3.15 M/mcL (3.82-4.97); Red Cell Distribution Width 14.6 % (11.5-14.5); Segmented Neutrophils % 67.4 %
[2018-07-04 07:28] LABS: Basophils % 0.6 %; Eosinophils # 0.3 K/mcL (0.0-0.6); Lymphocytes # 1.1 K/mcL (0.6-4.6); Monocytes # 0.6 K/mcL (0.0-1.3); Neutrophils # 4.4 K/mcL (1.6-8.9)
[2018-07-04 07:47] LABS: BUN/Creatinine Ratio 15 (6-26); Blood Urea Nitrogen 11 mg/dL (6-20); Calcium 8.6 mg/dL (8.6-10.3); Carbon Dioxide 30 mEq/L (23-29); Chloride 102 mEq/L (98-107); Glucose 161 mg/dL (70-105); Osmolality,Calculated 289 (280-300); Potassium 3.6 mEq/L (3.5-5.1); Sodium 138 mEq/L (136-145); eGFR For Non-African Americans > 60 (> 60)
[2018-07-04] MEDS: Insulin LISPRO 300 UNITS/3 ML VIAL SQ SCH ×4 (08:39→21:32)
[2018-07-04] MEDS: Diltiazem CD (24hr) 240 MG CAPSULE PO SCH ×2 (08:40→21:32)
[2018-07-04] MEDS: Pregabalin 75 MG CAPSULE PO SCH ×3 (08:40→21:32)
[2018-07-04] MEDS: Furosemide 20 MG TABLET PO SCH ×2 (08:40→17:28)
[2018-07-04] MEDS: *HR* OxyCODONE Immed Rel 15 MG TABLET PO SCH ×3 (08:41→21:31)
[2018-07-04] MEDS: FLUoxetine 20 MG CAPSULE PO SCH (08:41)
[2018-07-04] MEDS: Cyanocobalamin (B-12) 1,000 MCG TABLET PO SCH (08:41)
[2018-07-04] MEDS: Loratadine 10 MG TABLET PO SCH (08:41)
--- NOTE | 2018-07-04 09:39 | Internal Med Progress Note ---
Hospitalist Progress Note - Encounter Date of Encounter: 07/04/18 Time of Encounter: 14:19 - Subjective Interval History: Pt states she fell at a gas station and hit scrapped her RLE on gas pump island. She states some clots came ou during her last wound dressing change. She denies fever, chills N/V, or diarrhea. She denies CP or SOB. - Exam Vitals: Temp Pulse Resp BP Pulse Ox 98.3 F 65 18 126/75 97 07/04/18 07:00 07/04/18 07:00 07/04/18 07:00 07/04/18 07:00 07/04/18 07:00 Exam: General appearance: Present: cooperative, A&O X 3, morbidly obese, pleasant, no acute distress, answers questions appropriately Exam: As above - Head Head exam: Present: atraumatic, normal inspection, normocephalic - Eye Eye exam: Present: EOMI, conjuntiva pink, sclera anicteric. Absent: nystagmus Pupils: Present: PERRL - Neck Neck exam general surgery: Present: supple, trachea midline. Absent: lymphadenopathy, tenderness - Respiratory Respiratory exam: Present: CTAB. Absent: accessory muscle use, rales, rhonchi, wheezes - Cardiovascular Cardiovascular exam: Present: RRR, +S1, +S2. Absent: diastolic murmur, gallop, rubs, systolic murmur - GI/Abdominal GI/Abdominal exam: Present: normal bowel sounds, soft, tenderness. Absent: distended, hepatomegaly - Extremities Exam Extremities exam: Present: Large open wound RLE with multiple blood clots. Tenderness only with palpation. Warm, radial pulses palpable and symmetrical. Absent: calf tenderness, cyanotic, normal capillary refill, normal inspection, pedal edema - Neurological Exam Neurological exam: Present: abnormal gait, alert, oriented X3, no focal deficits. Absent: altered, facial droop, speech deficit - Skin Skin exam: Present: Large open wound RLE with multiple blood clots. - Assessment and Plan (1) Hematoma of right lower extremity Current Visit: Yes Status: Acute Assessment and Plan: Pt with bleeding from RLE wound. Pt states that while wound was being cleaned, the skin erutped and it has been bleeding since. Pt has been seeing Dr. Ambrocio for wound care and is also in [facility] for wound care and rehab. Podiatry consulted and flushed wound with saline. Wound care per podiatry Continue to monitor H and H Podiatry recommends continued conservative treatment of hematoma for now and will reassess. Lower Extremity MRI 07/03/18 15:04 IMPRESSION: 1. Redemonstration of large fluid collection within the lateral soft tissues of the right lower extremity measuring approximately 2.5 x 13.2 x 21.5 cm. Findings again suggestive of remote hematoma given history of trauma. Sterility of this collection is indeterminate on imaging. Only minimal rim enhancement identified. 2. Extensive soft tissue edema with mild enhancement of the skin. Recommend clinical correlation to exclude cellulitis. Findings again may reflect longstanding venous stasis/lymph edema given symmetry with partially imaged left lower extremity. 3. No acute osseous abnormality identified. 4. Heterogeneous appearance of the bone marrow which is a nonspecific finding and can be seen in obese patient, smokers, and in the setting of anemia amongst other etiologies. Clinical and laboratory correlation suggested. (2) Cellulitis Current Visit: Yes Status: Chronic Assessment and Plan: Wound cultures isolated acinobacter but unsure where sample was obtain. Wound does not appear infected per podiatry. Continue with dressing changes per podiatry recommendation. (3) Lower extremity edema Current Visit: Yes Status: Acute Assessment and Plan: Chronic lymphedema, also RLE edema from cellulitis and wound. Elevate Compression dressings (4) Morbid obesity Current Visit: Yes Status: Chronic Assessment and Plan: Chronic. Encourage lifestyle modifications such as diet and exercise. (5) Venous stasis dermatitis Current Visit: Yes Status: Acute Assessment and Plan: chronic and sometimes mistaken for cellulitis. (6) DVT (deep venous thrombosis) Current Visit: Yes Status: Acute Assessment and Plan: History of recurrent DVT. Pt reports prior DVT 2 x to LLE and RLE, then one to LUE making total of 5 prior DVT's. Pt is chronically on anticoag with Xarelto 10 mg PO QD which is currently on hold due to hematoma. It is also on hold due to possibility of getting wound debridement DVT Prophylaxis: Xarelto on hold due to hematoma Physical exam: General appearance: Present: cooperative, A&O X 3, morbidly obese, pleasant, no acute distress, answers questions appropriately Exam: As above - Head Head exam: Present: atraumatic, normal inspection, normocephalic - Eye Eye exam: Present: EOMI, conjuntiva pink, sclera anicteric. Absent: nystagmus Pupils: Present: PERRL - Neck Neck exam general surgery: Present: supple, trachea midline. Absent: lymphadenopathy, tenderness - Respiratory Respiratory exam: Present: CTAB. Absent: accessory muscle use, rales, rhonchi, wheezes - Cardiovascular Cardiovascular exam: Present: RRR, +S1, +S2. Absent: diastolic murmur, gallop, rubs, systolic murmur - GI/Abdominal GI/Abdominal exam: Present: normal bowel sounds, soft, tenderness. Absent: distended, hepatomegaly - Extremities Exam Extremities exam: Present: Large open wound RLE with multiple blood clots. Tenderness only with palpation. Warm, radial pulses palpable and symmetrical. Absent: calf tenderness, cyanotic, normal capillary refill, normal inspection, pedal edema - Neurological Exam Neurological exam: Present: abnormal gait, alert, oriented X3, no focal deficits. Absent: altered, facial droop, speech deficit - Skin Skin exam: Present: Large open wound RLE with multiple blood clots. - Summary of Assessment and Plan Summary of Assessment and Plan: Ms. Chiang is a 48 year old female with past medical history of GERD, hypertension, diabetes, morbid obesity, lymphedema, COLIN. Patient was admitted to the emergency department from [facility] where she is staying for rehabilitation and wound care, for acute on chronic right lower extremity cellulitis, bleeding from her wound. Pt states she is away she has chronic venous stasis and stasis dermatitis and states " they keep calling it cellulitis but I know it's not. I've had this for years." Lower Extremity CT 07/02/18 12:48 IMPRESSION: 1. Large mildly complex fluid collection centered within the lateral soft tissues of the right lower extremity measuring approximately 5.0 x 13.5 x 22.5 cm. Findings most suggestive of hematoma given history of trauma. No gas identified within the fluid collection. 2. Extensive soft tissue edema with associated skin thickening involving the right lower extremity. Similar edema and skin thickening of the partially imaged left lower extremity. Findings may reflect longstanding venous stasis/lymph edema. Recommend clinical correlation to exclude superimposed cellulitis. 3. No acute osseous abnormality. No CT evidence for osteomyelitis. - Time Spent with Patient Total time spent is greater than 50% in coordination of care (as documented) at patient's floor/unit and/or counseling patient: 25 - 35 minutes Plan of Care Discussed with: patient Internal Medicine: Result - Labs CBC & Chem 7: 07/04/18 06:35 07/04/18 06:35 Labs: Short CBC 07/04/18 Range/Units 06:35 WBC 6.5 (4.3-11.1) K/mcL Hgb 9.5 L (11.5-15.4) g/dL Hct 30.0 L (35.3-44.9) % Plt Count 261 (140-400) K/mcL Neutrophils # 4.4 (1.6-8.9) K/mcL BMP 07/04/18 06:35 Sodium 138 Potassium 3.6 Chloride 102 Carbon Dioxide 30 H BUN 11 Creatinine 0.71 Glucose 161 H Calcium 8.6 - Impressions Impressions Chest X-Ray 07/03/18 13:32 IMPRESSION: No radiographic evidence of acute cardiopulmonary disease. Right upper extremity PICC tip overlies the proximal right subclavian vein level. This needs advanced about 11 cm. D/ / Satya Amezcua / Satya Amezcua Interpreting Provider: Satya Amezcua Lower Extremity MRI 07/03/18 15:04 IMPRESSION: 1. Redemonstration of large fluid collection within the lateral soft tissues of the right lower extremity measuring approximately 2.5 x 13.2 x 21.5 cm. Findings again suggestive of remote hematoma given history of trauma. Sterility of this collection is indeterminate on imaging. Only minimal rim enhancement identified. 2. Extensive soft tissue edema with mild enhancement of the skin. Recommend clinical correlation to exclude cellulitis. Findings again may reflect longstanding venous stasis/lymph edema given symmetry with partially imaged left lower extremity. 3. No acute osseous abnormality identified. 4. Heterogeneous appearance of the bone marrow which is a nonspecific finding and can be seen in obese patient, smokers, and in the setting of anemia amongst other etiologies. Clinical and laboratory correlation suggested. D/ / Camron Chery MD / Camron Chery MD Interpreting Provider: Camron Chery MD Consult Discharge Plan - Plan Referrals: Delfino Valdes DO [Primary Care Provider] - (1) Hematoma of right lower extremity Qualifiers: Encounter type: subsequent encounter Qualified Code(s): S80.11XD - Contusion of right lower leg, subsequent encounter (2) Cellulitis Qualifiers: Site of cellulitis: extremity Site of cellulitis of extremity: lower extremity Laterality: right Qualified Code(s): L03.115 - Cellulitis of right lower limb (5) Venous stasis dermatitis Qualifiers: Laterality: bilateral Qualified Code(s): I87.2 - Venous insufficiency ( chronic) (peripheral)
[2018-07-04] MEDS ORDERED: Aminoglycoside Consult 1 EACH MC ONE (10:36)
--- NOTE | 2018-07-04 13:26 | Podiatry Progress Note ---
Date of Encounter: 07/04/18 Time of Encounter: 12:00 - Assessment and Plan (1) Hematoma of right lower extremity Current Visit: Yes Status: Acute Large hematoma right lower extremity s/p traumatic fall several weeks ago Plan: Assessed at bedside Flushed wound with saline Manual evacuation of loose clots performed at bedside- patient tolerated well- no new bleeding noted Wound bed remains covered by hematoma however wound margins can now be visualized, there is undermining 9oclock to 3oclock to margins of wound extending 2.5cm There is no drainage No appearance of infection to wound No odor Minimal surrounding edema or erythema to suggest infection Wound cultures did isolate acinobacter however there is no clinical appearance of infection to wound, suspicion of contamination of culture- unsure where wound was cultured as there is no drainage to wound other than bloody drainage. There are chronic skin changes to BLE consistent with PVD and lymphedema Borders of wound are well defined, no undermining or tunneling cleanse wound meticulously with soap and water rinse with clear water pat dry do not rub. Apply calcium alginate to the entire wound bed cover with gauze AVD pads Kerlix and an Brady wrap if dressing becomes soiled between schedule dressing changes it needs to be addressed and changed at that time. Recommend that we wrap compressive dressings from the distal aspect of the right ankle to the tibial tubercle Darden pole to avoid trapping fluid within, foot. We have encourage elevation at all times of her legs above her heart. Once we have addressed the wound and it is stable then we can address the lymphedema. This is a difficult situation because of her history of DVT/ multiple co morbids At this time will recommend continued conservative treatment of hematoma MRI was ordered and obtained. Redemonstrated hematoma Lower Extremity MRI 07/03/18 15:04 IMPRESSION: 1. Redemonstration of large fluid collection within the lateral soft tissues of the right lower extremity measuring approximately 2.5 x 13.2 x 21.5 cm. Findings again suggestive of remote hematoma given history of trauma. Sterility of this collection is indeterminate on imaging. Only minimal rim enhancement identified. 2. Extensive soft tissue edema with mild enhancement of the skin. Recommend clinical correlation to exclude cellulitis. Findings again may reflect longstanding venous stasis/lymph edema given symmetry with partially imaged left lower extremity. 3. No acute osseous abnormality identified. 4. Heterogeneous appearance of the bone marrow which is a nonspecific finding and can be seen in obese patient, smokers, and in the setting of anemia amongst other etiologies. Clinical and laboratory correlation suggested. D/ / Camron Chery MD / Camron Chery MD Interpreting Provider: Camron Chery MD on board and appreciated CT shows:1. Large mildly complex fluid collection centered within the lateral soft tissues of the right lower extremity measuring approximately 5.0 x 13.5 x 22.5 cm. Findings most suggestive of hematoma given history of trauma. No gas identified within the fluid collection. 2. Extensive soft tissue edema with associated skin thickening involving the right lower extremity. Similar edema and skin thickening of the partially imaged left lower extremity. Findings may reflect longstanding venous stasis/lymph edema. Recommend clinical correlation to exclude superimposed cellulitis. 3. No acute osseous abnormality. No CT evidence for osteomyelitis. Qualifiers: Encounter type: subsequent encounter Qualified Code(s): S80.11XD - Contusion of right lower leg, subsequent encounter Subjective Interval history: s/p fall, following regarding a deep hematoma of the lateral aspect of right right lower leg. Patient reports that it is sore but denies much pain. Patient resting comfortably. She apologized for earlier interactions- states she was just frustrated. In better spirts and mood today and compliant with dressing change. Patient denies any fevers, chills, n/v or fls. Objective - Vital Signs Vital Signs: Vital Signs Temp Pulse Resp BP Pulse Ox 07/04/18 10:28 97.6 F 83 18 113/69 93 Intake and Output 07/03/18 07/04/18 07/04/18 23:59 07:59 15:59 Output Total 0 / 0 Balance 0 / 240 Output: Urine 0 / 0 Other: # Bowel Movements 0 Blood Glucose* 247 - Exam Exam: General Examination: CONSTITUTIONAL: Alert, oriented, in no acute distress, non-toxic. EXTREMITIES: CFT 3 seconds all toes. Edema +2 and pedal pulses palpable. Skin changes consistent with chronic pvd and lymphedema. SKIN: Skin with decreased turgor, decreased subcutaneous tissue, skin thin and shiny with trophic changes associated with comorbidities as described in history.. Large open hematoma/ulceration to lateral/posterior aspect of right leg. Measures approx [id number] with unknown dept, approx 3cm after evacuation of clots today. Wound bed is covered in clotted hematoma. Hematoma has defroofed and entire hematoma is exposed. Large amount of clots evacuated from ulceration. Base still remains covered by fibrous blood clots. Soft to touch No fluctuance noted. mild surrounding edema and erythema most consistent with PVD changes and not cellulitis. Minimal suspicion of acute infectious process. No odor. No purulent drainage. Unable to assess full depth of wound related to wound bed being covered. NEUROLOGIC:intact sensation to light touch - Lab Result Diagrams: 07/04/18 06:35 07/04/18 06:35 Labs: Abnormal lab results RBC 3.15 M/mcL (3.82-4.97) L 07/04/18 06:35 Hgb 9.5 g/dL (11.5-15.4) L 07/04/18 06:35 Hct 30.0 % (35.3-44.9) L 07/04/18 06:35 RDW 14.6 % (11.5-14.5) H 07/04/18 06:35 Carbon Dioxide 30 mEq/L (23-29) H 07/04/18 06:35 Glucose 161 mg/dL (70-105) H 07/04/18 06:35 POC Glucose 192 mg/dL (70-99) H 07/03/18 16:34 Consult Discharge Plan - Plan Referrals: Delfino Valdes DO [Primary Care Provider] -
[2018-07-04] MEDS: Melatonin 3 MG TABLET PO SCH (21:31)
[2018-07-04] MEDS: Methocarbamol 750 MG TABLET PO SCH (21:32)
[2018-07-05 01:59] LABS: Basophils % 0.6 %; Eosinophils # 0.3 K/mcL (0.0-0.6); Eosinophils % 3.8 %; Hematocrit 25.2 % (35.3-44.9); Hemoglobin 8.2 g/dL (11.5-15.4); Immature Granulocytes % 1.3 % (0-4); Immature Platelets 4.1 % (1.1-6.1); Lymphocytes # 1.2 K/mcL (0.6-4.6); Lymphocytes % 16.1 %; Mean Corpuscular HGB Conc 32.5 g/dL (31.6-35.5); Mean Corpuscular Hemoglobin 29.7 pg (28.0-33.3); Mean Corpuscular Volume 91.3 fL (83.0-100.0); Mean Platelet Volume 10.3 fL (9.4-12.4); Monocytes # 0.8 K/mcL (0.0-1.3); Monocytes % 10.5 %; Neutrophils # 4.8 K/mcL (1.6-8.9); Platelet Count 258 K/mcL (140-400); Red Blood Count 2.76 M/mcL (3.82-4.97); Red Cell Distribution Width 14.4 % (11.5-14.5); Segmented Neutrophils % 67.7 %
[2018-07-05 02:16] LABS: BUN/Creatinine Ratio 14 (6-26); Blood Urea Nitrogen 11 mg/dL (6-20); Calcium 8.3 mg/dL (8.6-10.3); Carbon Dioxide 30 mEq/L (23-29); Chloride 103 mEq/L (98-107); Glucose 237 mg/dL (70-105); Osmolality,Calculated 293 (280-300); Potassium 3.5 mEq/L (3.5-5.1); Sodium 138 mEq/L (136-145); eGFR For Non-African Americans > 60 (> 60)
[2018-07-05] MEDS: Insulin LISPRO 300 UNITS/3 ML VIAL SQ SCH ×4 (08:16→21:44)
[2018-07-05] MEDS: FLUoxetine 20 MG CAPSULE PO SCH (08:17)
[2018-07-05] MEDS: Venlafaxine XR (24 HR) 75 MG CAP.ER.24H PO SCH (08:17)
[2018-07-05] MEDS: *HR* OxyCODONE Immed Rel 15 MG TABLET PO SCH ×3 (08:17→21:42)
[2018-07-05] MEDS: Loratadine 10 MG TABLET PO SCH (08:17)
[2018-07-05] MEDS: Diltiazem CD (24hr) 240 MG CAPSULE PO SCH ×2 (08:17→21:42)
[2018-07-05] MEDS: Pregabalin 75 MG CAPSULE PO SCH ×3 (08:18→21:41)
[2018-07-05] MEDS: Furosemide 20 MG TABLET PO SCH ×2 (08:18→17:04)
[2018-07-05] MEDS: Cyanocobalamin (B-12) 1,000 MCG TABLET PO SCH (08:18)
--- NOTE | 2018-07-05 13:16 | Internal Med Progress Note ---
Hospitalist Progress Note - Encounter Date of Encounter: 07/05/18 Time of Encounter: 13:06 - Subjective Interval History: Pt states she fell at a gas station and hit scrapped her RLE on gas pump island. She states some clots came ou during her last wound dressing change. She denies fever, chills N/V, or diarrhea. She denies CP or SOB. - Exam Vitals: Temp Pulse Resp BP Pulse Ox 98.1 F 68 18 112/69 92 07/05/18 04:59 07/05/18 04:59 07/05/18 04:59 07/05/18 04:59 07/05/18 04:59 Exam: General appearance: Present: cooperative, A&O X 3, morbidly obese, pleasant, no acute distress, answers questions appropriately Exam: As above - Head Head exam: Present: atraumatic, normal inspection, normocephalic - Eye Eye exam: Present: EOMI, conjuntiva pink, sclera anicteric. Absent: nystagmus Pupils: Present: PERRL - Neck Neck exam general surgery: Present: supple, trachea midline. Absent: lymphadenopathy, tenderness - Respiratory Respiratory exam: Present: CTAB. Absent: accessory muscle use, rales, rhonchi, wheezes - Cardiovascular Cardiovascular exam: Present: RRR, +S1, +S2. Absent: diastolic murmur, gallop, rubs, systolic murmur - GI/Abdominal GI/Abdominal exam: Present: normal bowel sounds, soft, tenderness. Absent: distended, hepatomegaly - Extremities Exam Extremities exam: Present: Large open wound RLE with multiple blood clots. Tenderness only with palpation. Warm, radial pulses palpable and symmetrical. Absent: calf tenderness, cyanotic, normal capillary refill, normal inspection, pedal edema - Neurological Exam Neurological exam: Present: abnormal gait, alert, oriented X3, no focal deficits. Absent: altered, facial droop, speech deficit - Skin Skin exam: Present: Large open wound RLE with multiple blood clots. - Assessment and Plan (1) Hematoma of right lower extremity Current Visit: Yes Status: Acute Assessment and Plan: Pt with bleeding from RLE wound. Pt states that while wound was being cleaned, the skin erutped and it has been bleeding since. Pt has been seeing Dr. Ambrocio for wound care and is also in [facility] for [facility] care and rehab. Podiatry consulted and flushed wound with saline 07/04 and again 07/05. Wound care per podiatry Continue to monitor H and H Podiatry recommends continued conservative treatment of hematoma for now and will reassess. (2) Cellulitis Current Visit: Yes Status: Chronic Assessment and Plan: Wound cultures isolated multi drug resistant acinobacter. Wound does not appear infected per podiatry and ID. Will reconsult ID for guidiance on blood culture results. Continue with dressing changes per podiatry recommendation. (3) Lower extremity edema Current Visit: Yes Status: Acute Assessment and Plan: Chronic lymphedema, also RLE edema from hematoma wound and or cellulitis. Elevate Compression dressings (4) Morbid obesity Current Visit: Yes Status: Chronic Assessment and Plan: Chronic (5) Venous stasis dermatitis Current Visit: Yes Status: Acute Assessment and Plan: ID recommend referal [facility] lymphedema clinic. (6) DVT (deep venous thrombosis) Current Visit: Yes Status: Acute Assessment and Plan: History of recurrent DVT. Pt reports prior DVT 2 x hannah LLE and RLE, then one to LUE making total of 5 prior DVT's. Pt is chronically on anticoag with Xarelto 10 mg PO QD which is currently on hold due to hematoma. It is also on hold due to hematoma. - Time Spent with Patient Total time spent is greater than 50% in coordination of care (as documented) at patient's floor/unit and/or counseling patient: Internal Medicine: Result - Labs CBC & Chem 7: 07/05/18 01:19 07/05/18 01:19 Labs: Short CBC 07/05/18 Range/Units 01:19 WBC 7.1 (4.3-11.1) K/mcL Hgb 8.2 L (11.5-15.4) g/dL Hct 25.2 L (35.3-44.9) % Plt Count 258 (140-400) K/mcL Neutrophils # 4.8 (1.6-8.9) K/mcL BMP 07/05/18 01:19 Sodium 138 Potassium 3.5 Chloride 103 Carbon Dioxide 30 H BUN 11 Creatinine 0.76 Glucose 237 H Calcium 8.3 L Consult Discharge Plan - Plan Referrals: Delfino Valdes, [Primary Care Provider] - (1) Hematoma of right lower extremity Qualifiers: Encounter type: subsequent encounter Qualified Code(s): S80.11XD - Contusion of right lower leg, subsequent encounter (2) Cellulitis Qualifiers: Site of cellulitis: extremity Site of cellulitis of extremity: lower extremity Laterality: right Qualified Code(s): L03.115 - Cellulitis of right lower limb (5) Venous stasis dermatitis Qualifiers: Laterality: bilateral Qualified Code(s): I87.2 - Venous insufficiency ( chronic) (peripheral)
--- NOTE | 2018-07-05 13:35 | Event Note ---
Date of Encounter: 07/05/18 Time of Encounter: 13:34 ID team has signed off, but asked to review culture results. Cultures noted to have grown maxwell-resistant Acinetobacter. Based on the clinical picture, high index of suspicion that his is a contaminant. If things have changed or the patient takes a turn to the worse, consider starting Colistin, but would otherwise hold any additional antibiotics at this time. Please call with questions or if you would like us to see the patient again.
[2018-07-05] MEDS ORDERED: *HR* Heparin 5,000 UNIT/ML VIAL IVP PRN ×2 (14:50)
[2018-07-05] MEDS ORDERED: *HR* Heparin 5,000 UNIT/ML VIAL IVP ONE (14:50)
[2018-07-05 16:38] LABS: Hematocrit 28.1 % (35.3-44.9); Mean Corpuscular Hemoglobin 30.1 pg (28.0-33.3); Mean Platelet Volume 10.1 fL (9.4-12.4); Platelet Count 255 K/mcL (140-400); Red Blood Count 2.99 M/mcL (3.82-4.97); Red Cell Distribution Width 14.4 % (11.5-14.5)
[2018-07-05 16:58] LABS: Heparin anti-factor XA UFH 0.07 IU/mL (0.30-0.70); INR 1.1; Prothrombin Time 12.4 Seconds (9.4-12.1)
[2018-07-05] MEDS: Heparin 25,000 UNIT/500 ML D5W 25,000 UNIT/500 ML BAG IVC SCH (17:05)
[2018-07-05] MEDS ORDERED: Insulin DETEMIR 100 UNIT/ML X5UNITS SQ SCH (21:00)
[2018-07-05] MEDS: Methocarbamol 750 MG TABLET PO SCH (21:42)
[2018-07-05] MEDS: Melatonin 3 MG TABLET PO SCH (21:42)
[2018-07-06] MEDS: Acetaminophen 325 MG TABLET PO PRN (00:49)
[2018-07-06] MEDS: Heparin 25,000 UNIT/500 ML D5W 25,000 UNIT/500 ML BAG IVC SCH ×3 (04:58→21:39)
[2018-07-06] MEDS: Insulin LISPRO 300 UNITS/3 ML VIAL SQ SCH ×3 (08:21→21:08)
[2018-07-06] MEDS: Diltiazem CD (24hr) 240 MG CAPSULE PO SCH ×2 (08:22→21:07)
[2018-07-06] MEDS: FLUoxetine 20 MG CAPSULE PO SCH (08:22)
[2018-07-06] MEDS: Pregabalin 75 MG CAPSULE PO SCH ×3 (08:22→21:06)
[2018-07-06] MEDS: Loratadine 10 MG TABLET PO SCH (08:22)
[2018-07-06] MEDS: *HR* OxyCODONE Immed Rel 15 MG TABLET PO SCH ×3 (08:22→21:22)
[2018-07-06] MEDS: Furosemide 20 MG TABLET PO SCH ×2 (08:23→19:53)
[2018-07-06] MEDS: Cyanocobalamin (B-12) 1,000 MCG TABLET PO SCH (08:23)
--- NOTE | 2018-07-06 13:10 | Podiatry Progress Note ---
Date of Encounter: 07/06/18 Time of Encounter: 12:15 - Assessment and Plan (1) Hematoma of right lower extremity Current Visit: Yes Status: Acute As to see this patient by Dr. Ambrocio for a large hematoma on the right lateral leg and wound. she says it developed after trauma and has been going on for a couple weeks. She says he sent her into the hospital. ID saw the patient previously. approx [id number] wound with evidence a hematoma right lateral calf. There is no active bleeding. Sensation intact to touch. Patient has chronic changes of lymphedema on bilateral lower extremities. Large hematoma and open right leg ulceration Discussed with patient her condition and treatment options. Discussed with patient that undergoing evacuation of the hematoma and cleaning up of the wound does involve the risk of bleeding and she could require transfusion. Patient says that she understands that she could bleed from this area could require transfusion or get an infection and lose her leg. Patient wants to proceed with evacuation of the hematoma and the wound debridement. Nature the procedures, risks first benefits potential convocation consequences of her condition and surgery discussed at length. No guarantees made as to the outcome. Patient made nothing by mouth after breakfast. Heparin drip was stopped. On-call to the OR. All of her questions were answered and the informed consent was signed. Qualifiers: Encounter type: initial encounter Qualified Code(s): S80.11XA - Contusion of right lower leg, initial encounter Objective - Vital Signs Vital Signs: Vital Signs Temp Pulse Resp BP Pulse Ox 07/06/18 09:51 98.4 F 72 14 104/60 93 07/06/18 07:38 97.8 F 70 16 118/70 96 07/06/18 04:07 98.2 F 65 16 97/56 93 07/05/18 21:08 97.9 F 90 16 116/60 91 07/05/18 14:37 98.1 F 74 15 121/71 93 Intake and Output 07/05/18 07/06/18 07/06/18 23:59 07:59 15:59 Intake Total 0 / 0 473.1 / 473.1 324 / 324 Output Total 1250 / 1250 400 / 400 300 / 300 Balance -1250 / -1250 73.1 / 73.1 24 / 24 Intake: IV Fluids 473.1 / 473.1 204 / 204 Heparin 25,000 UNIT/500 ML D5W 473.1 / 473.1 204 / 204 25,000 unit In 500 ml @ 14 UNIT /KG/HR 49.14 mls/hr IVC . [id number] [facility] Rx#:[id number] Oral 0 / 0 0 / 0 120 / 120 Output: Urine 1250 / 1250 400 / 400 300 / 300 Other: Meal Breakfast Percent of Meal Consumed 100% # Voids 1 # Urine Diapers 1 # Bowel Movements 0 Weight 180 kg Blood Glucose* 307 270 291 Patient Weight 07/06/18 23:59 Weight 180 kg - Lab Result Diagrams: 07/05/18 16:13 07/05/18 01:19 Labs: Abnormal lab results RBC 2.99 M/mcL (3.82-4.97) L 07/05/18 16:13 Hgb 9.0 g/dL (11.5-15.4) L 07/05/18 16:13 Hct 28.1 % (35.3-44.9) L 07/05/18 16:13 PT 12.4 Seconds (9.4-12.1) H 07/05/18 16:13 Heparin Anti-Xa, Unfract 0.79 IU/mL (0.30-0.70) H 07/06/18 06:33 Carbon Dioxide 30 mEq/L (23-29) H 07/05/18 01:19 Glucose 237 mg/dL (70-105) H 07/05/18 01:19 POC Glucose 291 mg/dL (70-99) H 07/06/18 11:35 Calcium 8.3 mg/dL (8.6-10.3) L 07/05/18 01:19 Consult Discharge Plan - Plan Referrals: Delfino Valdes DO [Primary Care Provider] -
[2018-07-06] MEDS ORDERED: Insulin LISPRO 300 UNITS/3 ML VIAL SQ SCH ×2 (16:30→21:00)
[2018-07-06] MEDS ORDERED: Clindamycin 900 MG/50 ML 900 MG/50 ML IV.SOLN IVPB ONE ×3 (16:40→18:40)
[2018-07-06] MEDS ORDERED: *HR* FentaNYL (PF) 100 MCG/2 ML VIAL ONE (16:47)
[2018-07-06] MEDS ORDERED: *HR* Midazolam HCl 2 MG/2 ML VIAL ONE (16:48)
[2018-07-06] MEDS ORDERED: *HR* Propofol 200 MG/20 ML VIAL IVP ONE (16:48)
--- NOTE | 2018-07-06 16:50 | Anesthesia Evaluation PreOp ---
Date of Encounter: 07/06/18 Time of Encounter: 14:50 - Past History Planned Operation: evacuation of hematoma, I and D Cardiac History: HTN, Hyperlipidemia, Other (Hx of DVT) Pulmonary History: Former smoker, COPD, COLIN Dx (CPAP =14) [employer] History: Denies Any Significant HX, Other (diabetic neuropathy) Other Medical History: Diabetes Type II, GERD, Other (super morbid obesity) Alcohol Use: none Drug use: none Medications and Allergies Diltiazem CD (24hr) [Cardizem CD] 240 mg PO BID 08/11/15 [History] hydrOXYzine pamoate [HydrOXYzine Pamoate] 25 - 50 mg PO Q6H PRN 08/11/15 [ History] Cyanocobalamin (Vitamin B-12) [Vitamin B12] 2,500 mcg PO DAILY 03/22/17 [History ] Ferrous Sulfate 325 mg PO BIDWM 03/22/17 [History] Furosemide [Lasix] 40 mg PO BID 03/22/17 [History] Insulin Glargine,Hum.rec.anlog [Roni Xavier] 65 unit SQ BID 03/22/17 [ History] Melatonin 5 mg PO HS 03/22/17 [History] Metformin HCl [Fortamet] 1,000 mg PO BID 03/22/17 [History] Methocarbamol [Robaxin] 750 mg PO HS 03/22/17 [History] Dulaglutide [Trulicity] 0.75 mg SQ QWEEK 03/21/18 [History] Montelukast [Singulair] 10 mg PO HS 03/21/18 [History] Oxybutynin [Ditropan] 5 mg PO BID 03/21/18 [History] Rivaroxaban [Xarelto] 10 mg PO DAILY #30 tablet 03/21/18 [Rx] Vancomycin HCl 1 gm IV Q12H 06/27/18 [History] Atorvastatin [Lipitor] 40 mg PO HS 07/02/18 [History] Cetirizine HCl [All Day Allergy] 10 mg PO DAILY 07/02/18 [History] FLUoxetine HCl [Prozac] 40 mg PO DAILY 07/02/18 [History] Insulin LISPRO [HumaLOG] 50 units SQ TIDWM 07/02/18 [History] Levofloxacin [Levaquin] 750 mg PO DAILY 07/02/18 [History] Losartan Potassium [Cozaar] 50 mg PO DAILY 07/02/18 [History] Omeprazole [PriLOSEC] 40 mg PO DAILY 07/02/18 [History] Oxycodone HCl 15 mg PO TID 07/02/18 [History] Pregabalin [Lyrica] 150 mg PO TID 07/02/18 [History] Promethazine [Phenergan] 25 mg PO Q8H PRN 07/02/18 [History] Venlafaxine HCl [Venlafaxine HCl ER] 75 mg PO Q48H 07/02/18 [History] 3 Allergy/AdvReac Type Severity Reaction Status Date / Time Penicillins Allergy Intermediate Rash Verified 03/21/18 13:13 pioglitazone [From Actos] Allergy Intermediate See Verified 03/21/18 13:13 Comments sitagliptin [From Januvia] Allergy Intermediate See Verified 03/21/18 13:13 Comments Sulfa (Sulfonamide Allergy Intermediate Hives Verified 03/21/18 13:13 Antibiotics) nabumetone Allergy Muscle Pain Verified 03/21/18 13:13 sulfamethoxazole Allergy Rash Verified 03/21/18 13:13 [From Bactrim] trimethoprim [From Bactrim] Allergy Rash Verified 03/21/18 13:13 - Meds/Allergy Pre-op Review Medications Reviewed: Yes Allergies Reviewed: Yes Beta Blockers on Current Med List: No Anesthesia Results - Labs 07/05/18 16:13 07/05/18 01:19 - Imaging EKG: report reviewed (sinus) Additional studies: ECHO EF60 %, no ischemia Anesthesia Exam Selected Entries 07/06/18 15:01 Temperature 98.4 F Pulse Rate 64 Respiratory Rate 14 Blood Pressure 105/63 O2 Sat by Pulse Oximetry 92 Weight: 180 kg NPO (# of Hours): over 8 hours - HEENT Pupil (Motor): Pupils equal Mallampati: II Denture Type: Upper: Complete Oral Opening: Greater than 3 - Cardiac Rhythm: Regular Murmur: Systolic - Pulmonary Breath Sounds: bilateral Clear Respiratory Effort: Symmetrical Anesthesia Assess/Plan ASA Score: 4 Modified [place] Scale for Level of Consciousness: Cooperative, oriented, and tranquil Anesthetic Plan: General Monitoring Plan: Standard Monitors Recovery Plan: PACU
--- NOTE | 2018-07-06 17:13 | Internal Med Progress Note ---
Hospitalist Progress Note - Encounter Date of Encounter: 07/06/18 Time of Encounter: 15:13 - Subjective Interval History: Pt states she fell at a gas station and hit scrapped her RLE on gas pump island. She states some clots came ou during her last wound dressing change. She denies fever, chills N/V, or diarrhea. She denies CP or SOB. - Exam Vitals: Temp Pulse Resp BP Pulse Ox 98.4 F 64 14 105/63 92 07/06/18 15:01 07/06/18 15:01 07/06/18 15:01 07/06/18 15:01 07/06/18 15:01 Exam: General appearance: Present: cooperative, A&O X 3, morbidly obese, pleasant, no acute distress, answers questions appropriately Exam: As above - Head Head exam: Present: atraumatic, normal inspection, normocephalic - Eye Eye exam: Present: EOMI, conjuntiva pink, sclera anicteric. Absent: nystagmus Pupils: Present: PERRL - Neck Neck exam general surgery: Present: supple, trachea midline. Absent: lymphadenopathy, tenderness - Respiratory Respiratory exam: Present: CTAB. Absent: accessory muscle use, rales, rhonchi, wheezes - Cardiovascular Cardiovascular exam: Present: RRR, +S1, +S2. Absent: diastolic murmur, gallop, rubs, systolic murmur - GI/Abdominal GI/Abdominal exam: Present: normal bowel sounds, soft, tenderness. Absent: distended, hepatomegaly - Extremities Exam Extremities exam: Present: Large open wound RLE with multiple blood clots. Tenderness only with palpation. Warm, radial pulses palpable and symmetrical. Absent: calf tenderness, cyanotic, normal capillary refill, normal inspection, pedal edema - Neurological Exam Neurological exam: Present: abnormal gait, alert, oriented X3, no focal deficits. Absent: altered, facial droop, speech deficit - Skin Skin exam: Present: Large open wound RLE with multiple blood clots. - Assessment and Plan (1) Hematoma of right lower extremity Current Visit: Yes Status: Acute Assessment and Plan: Pt with bleeding from RLE wound. Pt states that while wound was being cleaned, the skin erutped and it has been bleeding since. Pt has been seeing Dr. Ambrocio for wound care and is also in [facility] for wound care and rehab. Podiatry consulted and flushed wound with saline 07/04 and again 07/05. Wound care per podiatry Continue to monitor H and H Podiatry initially recommended conservative treatment of hematoma, however does not appear to be responding. Podiatry planing on evacuation and cleaning of wound 07/06/2018. Patient wants to proceed with evacuation of the hematoma and the wound debridement. (2) Cellulitis Current Visit: Yes Status: Chronic Assessment and Plan: Wound cultures isolated multi drug resistant acinobacter. Wound does not appear infected per podiatry and ID. ID re consulted for guidance on blood culture results and there is high index suspision that this is a contaminant. Continue with dressing changes per podiatry recommendation. No antibiotics recommended by ID for now. Will continue to monitor. (3) Lower extremity edema Current Visit: Yes Status: Acute Assessment and Plan: Chronic lymphedema, also RLE edema from hematoma wound and or cellulitis. Elevate Compression dressings (4) Morbid obesity Current Visit: Yes Status: Chronic (5) Venous stasis dermatitis Current Visit: Yes Status: Acute Assessment and Plan: ID recommend referal [facility] lymphedema clinic. (6) DVT (deep venous thrombosis) Current Visit: Yes Status: Acute Assessment and Plan: History of recurrent DVT. Pt reports prior DVT 2 x hannah LLE and RLE, then one to LUE making total of 5 prior DVT's. Pt is chronically on anti-coagulation with Xarelto 10 mg PO QD which is currently on hold due to hematoma. It is also on hold due to hematoma. Pt started on Heparin gtt yesterday while Xarelto remains on hold for now. DVT Prophylaxis: Xarelto on hold due to hematoma - Summary of Assessment and Plan Summary of Assessment and Plan: Ms. Chiang is a 48 year old female with past medical history of GERD, hypertension, diabetes, morbid obesity, lymphedema, COLIN. Patient was admitted to the emergency department from [facility] where she is staying for rehabilitation and wound care, for acute on chronic right lower extremity cellulitis, bleeding from her wound. Pt states she is away she has chronic venous stasis and stasis dermatitis and states " they keep calling it cellulitis but I know it's not. I've had this for years." Lower Extremity CT 07/02/18 12:48 IMPRESSION: 1. Large mildly complex fluid collection centered within the lateral soft tissues of the right lower extremity measuring approximately 5.0 x 13.5 x 22.5 cm. Findings most suggestive of hematoma given history of trauma. No gas identified within the fluid collection. 2. Extensive soft tissue edema with associated skin thickening involving the right lower extremity. Similar edema and skin thickening of the partially imaged left lower extremity. Findings may reflect longstanding venous stasis/lymph edema. Recommend clinical correlation to exclude superimposed cellulitis. 3. No acute osseous abnormality. No CT evidence for osteomyelitis. - Time Spent with Patient Total time spent is greater than 50% in coordination of care (as documented) at patient's floor/unit and/or counseling patient: less than 15 minutes Internal Medicine: Result - Labs CBC & Chem 7: 07/05/18 16:13 07/05/18 01:19 - ABG Interpretation ABG results: PT/INR, D-dimer PT 12.4 Seconds (9.4-12.1) H 07/05/18 16:13 Consult Discharge Plan - Plan Referrals: Delfino Valdes DO [Primary Care Provider] - (1) Hematoma of right lower extremity Qualifiers: Encounter type: initial encounter Qualified Code(s): S80.11XA - Contusion of right lower leg, initial encounter (2) Cellulitis Qualifiers: Site of cellulitis: extremity Site of cellulitis of extremity: lower extremity Laterality: right Qualified Code(s): L03.115 - Cellulitis of right lower limb (5) Venous stasis dermatitis Qualifiers: Laterality: bilateral Qualified Code(s): I87.2 - Venous insufficiency ( chronic) (peripheral)
[2018-07-06] MEDS ORDERED: *HR* PHENYLEPHRINE 1,000 MCG/10 ML SYRINGE IVP ONE (17:38)
[2018-07-06] MEDS ORDERED: Acetaminophen IV 1,000 MG/100 ML INFUS..BTL IVPB ONE ×2 (17:44→18:40)
--- NOTE | 2018-07-06 18:32 | Operative Note ---
Date of procedure: 07/06/18 Pre-op diagnosis: right leg hematoma, wound [id number] Post-op diagnosis: same Procedure: Incision and drainage/evacuation of hematoma right leg Excisional debridement to muscle wound right leg Implants: None Complications: none Anesthesia: JAYA Surgeon: Wild Napier Was there an laundry assistant present: No Estimated blood loss (cc): 75 Specimen: none Condition: stable Disposition: PACU Procedure in Detail: Indications: 48-year-old female with right leg large hematoma and wound into the deep tissue down to the level of the muscle admitted to the hospital. Patient also has lymphedema of the extremities is bring brought to the operating room for the above procedures after having the nature of the procedures, risks versus benefits potential complications consequences of surgery and her condition discussed at length. Discussed she is high risk for limb loss. No guarantees were made as to the outcome of any procedure and she understood that she would have a large wound to heal. All of her questions have been answered and the informed consent was signed. Patient was taken from the preoperative holding area and operating room placed on operating room table in the supine position. The right lower extremity was scrubbed prepped and draped in the usual sterile fashion and the following procedures began. Incision and drainage/evacuation of hematoma. Attention was directed to the lateral aspect of the patient's right leg. Where a large hematoma with clotted blood was present. The hematoma was evacuated from the lateral aspect of the patient's right leg using a curet and suction. Once all of the clotted blood had been removed the wound present measured approximately 15 cmx 11 cmx 1 cm and was down to the level of the muscle. There was fibrotic and necrotic tissue present at the wound base and the misonex debridement wand was utilized for the next procedure. Excisional debridement of right leg wound to the level of muscle. The fibrotic and necrotic tissue was excised from the wound base until there was a healthy bleeding granular base. Pressure was held in adequate hemostasis was present. All tissue in the wound base did appear viable. With adequate hemostasis achieved the perfusion team which had made PRP, was then applied to the wound. Adaptic placed on the wound bed and a wound VAC was applied to the right leg wound and set 125 mmHg continuous. Patient tolerated the anesthesia and the procedure well and was escorted to the recovery room with vital signs stable and vascular status intact to the right lower extremity and adequate hemostasis. Return to the floor.
[2018-07-06] MEDS ORDERED: Dextrose Gel 15 GM/37.5 ML TUBE PO PRN ×2 (18:40)
[2018-07-06] MEDS ORDERED: Naloxone 0.4 MG/ML INJ IVP PRN (18:40)
[2018-07-06] MEDS ORDERED: D5% in Water 1,000 ML IVC PRN (18:40)
[2018-07-06] MEDS ORDERED: *HR* Heparin 5,000 UNIT/ML VIAL IVP PRN ×2 (18:40)
[2018-07-06] MEDS ORDERED: *HR* Dextrose 50 % in Water (Syg) 50 ML SYRINGE IVP PRN (18:40)
--- NOTE | 2018-07-06 18:55 | Anesthesia Evaluation Post Op ---
Date of Encounter: 07/06/18 Time of Encounter: 18:40 - Vital Signs Vital Signs: Selected Entries 07/06/18 18:40 Temperature 97.9 F Pulse Rate 72 Respiratory Rate 16 Blood Pressure 129/72 O2 Sat by Pulse Oximetry 99 - Lungs Lungs: Clear Ascult./Percussion - Airway Airway: Non-obstructed - Cardiovascular Regular Rate - Mental Status Mental Status: Alert & Oriented, Answers Appropriately - Nausea Vomiting Nausea Vomiting: Not Present - Hydration Hydration: NPO - Discharge PostOp Status: Transfer Patient to floor
[2018-07-06] MEDS ORDERED: Insulin DETEMIR 100 UNIT/ML X5UNITS SQ SCH (21:00)
[2018-07-06] MEDS: Methocarbamol 750 MG TABLET PO SCH (21:06)
[2018-07-06] MEDS: Melatonin 3 MG TABLET PO SCH (21:06)
[2018-07-06] MEDS: Insulin DETEMIR 100 UNIT/ML X5UNITS SQ SCH (21:25)
[2018-07-07] MEDS: Acetaminophen 325 MG TABLET PO PRN (01:08)
[2018-07-07] MEDS: Cyanocobalamin (B-12) 1,000 MCG TABLET PO SCH (09:12)
[2018-07-07] MEDS: Venlafaxine XR (24 HR) 75 MG CAP.ER.24H PO SCH (09:12)
[2018-07-07] MEDS: Furosemide 20 MG TABLET PO SCH ×2 (09:13→16:17)
[2018-07-07] MEDS: FLUoxetine 20 MG CAPSULE PO SCH (09:13)
[2018-07-07] MEDS: Diltiazem CD (24hr) 240 MG CAPSULE PO SCH ×2 (09:13→22:28)
[2018-07-07] MEDS: Pregabalin 75 MG CAPSULE PO SCH ×3 (09:13→22:27)
[2018-07-07] MEDS: *HR* OxyCODONE Immed Rel 15 MG TABLET PO SCH ×3 (09:14→22:26)
[2018-07-07] MEDS: Loratadine 10 MG TABLET PO SCH (09:14)
[2018-07-07] MEDS: Heparin 25,000 UNIT/500 ML D5W 25,000 UNIT/500 ML BAG IVC SCH (09:17)
[2018-07-07] MEDS: Insulin LISPRO 300 UNITS/3 ML VIAL SQ SCH ×5 (09:20→22:28)
[2018-07-07] MEDS: Insulin DETEMIR 100 UNIT/ML X5UNITS SQ SCH ×2 (09:26→22:28)
--- NOTE | 2018-07-07 10:16 | Internal Med Progress Note ---
Hospitalist Progress Note - Encounter Date of Encounter: 07/07/18 Time of Encounter: 10:00 - Subjective Interval History: Ms Chiang is currently admitted for hematoma R leg. She is s/p drainage and wound vac placement. She remains moderate to high risk due to potential for worsening clinical status. Ms Chiang is feeling OK. No fever or chills. No cough. Tolerating wound vac at this time. No GI issues. - Exam Vitals: Temp Pulse Resp BP Pulse Ox 98.1 F 72 18 112/64 96 07/07/18 07:18 07/07/18 07:18 07/07/18 07:18 07/07/18 07:18 07/07/18 07:18 Exam: General: Alert and oriented. Comfortable at this time. Morbidly obese. Skin: Venous stasis bilateral lower extremities. H: Normocephalic. EENT: EOMI, pupils equal. Mucus membranes moist. No lesion. Cardiovascular: Normal S1 & S2, no rubs, murmurs or gallops. No JVD. Pulse regular. Lungs: Normal breath sounds, no wheezes or crackles. Diminished breath sounds. Abdomen: Soft, non-tender, no rigidity. Normal bowel sounds. Obese. Extremities: Edema bilaterally with venous stasis changes. Wound vac on R. Neurological: Normal cognition and motor skills. Pulses: Carotid and radial pulses normal +2. Rest of the physical exam is non contributory - Assessment and Plan (1) Hematoma of right lower extremity Current Visit: Yes Status: Acute Assessment and Plan: Pt is s/p drainage yesterday. Wound vac in place. (2) Hx of deep venous thrombosis Current Visit: Yes Status: Chronic Assessment and Plan: Pt has had multiple DVTs in the past. Currently on heparin drip. Will restart Xarelto and monitor for bleeding. (3) Lymphedema in adult patient Current Visit: Yes Status: Chronic Assessment and Plan: Chronic. (4) Lower extremity edema Current Visit: Yes Status: Chronic Assessment and Plan: Pt has chronic lymphedema. Elevate, compression. (5) Morbid obesity Current Visit: Yes Status: Chronic Assessment and Plan: Chronic. Encourage lifestyle modifications. (6) Diabetes Current Visit: Yes Status: Chronic Assessment and Plan: Blood sugars elevated. Will adjust insulin today. (7) Venous stasis dermatitis Current Visit: Yes Status: Chronic Assessment and Plan: Chronic issue. - Time Spent with Patient Total time spent is greater than 50% in coordination of care (as documented) at patient's floor/unit and/or counseling patient: Internal Medicine: Result - Labs CBC & Chem 7: 07/05/18 16:13 07/05/18 01:19 - ABG Interpretation ABG results: PT/INR, D-dimer PT 12.4 Seconds (9.4-12.1) H 07/05/18 16:13 Consult Discharge Plan - Plan Referrals: Delfino Valdes DO [Primary Care Provider] - (1) Hematoma of right lower extremity Qualifiers: Encounter type: subsequent encounter Qualified Code(s): S80.11XD - Contusion of right lower leg, subsequent encounter (6) Diabetes Qualifiers: Diabetes mellitus type: type 2 Diabetes mellitus care home insulin use: with care home use Diabetes mellitus complication status: with hyperglycemia Qualified Code(s): E11.65 - Type 2 diabetes mellitus with hyperglycemia; Z79.4 - intermediate frame tender (current) use of insulin (7) Venous stasis dermatitis Qualifiers: Laterality: bilateral Qualified Code(s): I87.2 - Venous insufficiency ( chronic) (peripheral)
[2018-07-07] MEDS: *HR* Rivaroxaban 10 MG TABLET PO SCH (12:00)
[2018-07-07] MEDS: Methocarbamol 750 MG TABLET PO SCH (22:27)
[2018-07-07] MEDS: Melatonin 3 MG TABLET PO SCH (22:27)
[2018-07-08] MEDS ORDERED: *HR* OxyCODONE Immed Rel 5 MG TABLET PO PRN (01:44)
[2018-07-08] MEDS: Acetaminophen 325 MG TABLET PO PRN (01:51)
[2018-07-08 06:24] LABS: Hematocrit 27.7 % (35.3-44.9); Hemoglobin 8.8 g/dL (11.5-15.4); Mean Corpuscular HGB Conc 31.8 g/dL (31.6-35.5); Mean Corpuscular Hemoglobin 30.1 pg (28.0-33.3); Mean Corpuscular Volume 94.9 fL (83.0-100.0); Mean Platelet Volume 10.5 fL (9.4-12.4); Platelet Count 246 K/mcL (140-400); Red Blood Count 2.92 M/mcL (3.82-4.97); Red Cell Distribution Width 14.7 % (11.5-14.5)
[2018-07-08 06:47] LABS: BUN/Creatinine Ratio 18 (6-26); Blood Urea Nitrogen 16 mg/dL (6-20); Calcium 8.9 mg/dL (8.6-10.3); Carbon Dioxide 31 mEq/L (23-29); Chloride 100 mEq/L (98-107); Glucose 238 mg/dL (70-105); Magnesium 1.9 mg/dL (1.6-2.6); Osmolality,Calculated 293 (280-300); Potassium 3.6 mEq/L (3.5-5.1); Sodium 137 mEq/L (136-145); eGFR For Non-African Americans > 60 (> 60)
[2018-07-08] MEDS: Insulin LISPRO 300 UNITS/3 ML VIAL SQ SCH ×7 (08:20→20:29)
[2018-07-08] MEDS: Diltiazem CD (24hr) 240 MG CAPSULE PO SCH ×2 (08:23→20:42)
[2018-07-08] MEDS: Cyanocobalamin (B-12) 1,000 MCG TABLET PO SCH (08:23)
[2018-07-08] MEDS: Furosemide 20 MG TABLET PO SCH ×2 (08:24→17:08)
[2018-07-08] MEDS: *HR* OxyCODONE Immed Rel 15 MG TABLET PO SCH ×3 (08:24→20:43)
[2018-07-08] MEDS: Pregabalin 75 MG CAPSULE PO SCH ×3 (08:24→20:41)
[2018-07-08] MEDS: Loratadine 10 MG TABLET PO SCH (08:24)
[2018-07-08] MEDS: *HR* Rivaroxaban 10 MG TABLET PO SCH (08:25)
[2018-07-08] MEDS: FLUoxetine 20 MG CAPSULE PO SCH (08:25)
[2018-07-08] MEDS: Insulin DETEMIR 100 UNIT/ML X5UNITS SQ SCH ×2 (08:28→20:44)
--- NOTE | 2018-07-08 10:09 | Internal Med Progress Note ---
Hospitalist Progress Note - Encounter Date of Encounter: 07/08/18 Time of Encounter: 10:09 - Subjective Interval History: Ms Chiang is currently admitted for hematoma R leg. She is s/p drainage and wound vac placement. She remains moderate to high risk due to potential for worsening clinical status. Ms Chiang is doing OK. No fever or chills. Has a lot of drainage in her wound vac. No overt blood. No GI issues. No CP or SOB. - Exam Vitals: Temp Pulse Resp BP Pulse Ox 97.6 F 63 16 123/76 98 07/08/18 10:02 07/08/18 10:02 07/08/18 10:02 07/08/18 10:02 07/08/18 10:02 Exam: General: Alert and oriented. Comfortable at this time. Morbidly obese. Skin: Venous stasis bilateral lower extremities. Drainage in wound vac- dark. H: Normocephalic. EENT: EOMI, pupils equal. Mucus membranes moist. No lesion. Cardiovascular: Normal S1 & S2, no rubs, murmurs or gallops. No JVD. Pulse regular. Lungs: Normal breath sounds, no wheezes or crackles. Diminished breath sounds. Abdomen: Soft, non-tender, no rigidity. Normal bowel sounds. Obese. Extremities: Edema bilaterally with venous stasis changes. Wound vac on R. Neurological: Normal cognition and motor skills. Pulses: Carotid and radial pulses normal +2. Rest of the physical exam is non contributory - Assessment and Plan (1) Hematoma of right lower extremity Current Visit: Yes Status: Acute Assessment and Plan: Wound vac in place. Drainage noted. No overt blood. Hold d/c till tomorrow to monitor for bleeding. (2) Hx of deep venous thrombosis Current Visit: Yes Status: Chronic Assessment and Plan: Pt has had multiple DVTs in the past. Changed back to Xarelto. Monitoring tonight for any bleeding. (3) Lymphedema in adult patient Current Visit: Yes Status: Chronic Assessment and Plan: Chronic. (4) Lower extremity edema Current Visit: Yes Status: Chronic Assessment and Plan: Pt has chronic lymphedema. Elevate, compression. (5) Morbid obesity Current Visit: Yes Status: Chronic Assessment and Plan: Chronic. Encourage lifestyle modifications. (6) Diabetes Current Visit: Yes Status: Chronic Assessment and Plan: Blood sugars somewhat better after insulin adjustment. Monitoring. (7) Venous stasis dermatitis Current Visit: Yes Status: Chronic Assessment and Plan: Chronic issue. - Time Spent with Patient Total time spent is greater than 50% in coordination of care (as documented) at patient's floor/unit and/or counseling patient: Internal Medicine: Result - Labs CBC & Chem 7: 07/08/18 06:00 07/08/18 06:00 Labs: Short CBC 07/08/18 Range/Units 06:00 WBC 10.0 (4.3-11.1) K/mcL Hgb 8.8 L (11.5-15.4) g/dL Hct 27.7 L (35.3-44.9) % Plt Count 246 (140-400) K/mcL BMP 07/08/18 06:00 Sodium 137 Potassium 3.6 Chloride 100 Carbon Dioxide 31 H BUN 16 Creatinine 0.89 Glucose 238 H Calcium 8.9 - ABG Interpretation ABG results: PT/INR, D-dimer PT 12.4 Seconds (9.4-12.1) H 07/05/18 16:13 Consult Discharge Plan - Plan Referrals: Delfino Valdes DO [Primary Care Provider] - (1) Hematoma of right lower extremity Qualifiers: Encounter type: subsequent encounter Qualified Code(s): S80.11XD - Contusion of right lower leg, subsequent encounter (6) Diabetes Qualifiers: Diabetes mellitus type: type 2 Diabetes mellitus 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
--- NOTE | 2018-07-08 11:03 | Podiatry Progress Note ---
Date of Encounter: 07/08/18 Time of Encounter: 09:50 - Assessment and Plan (1) Hematoma of right lower extremity Current Visit: Yes Status: Acute s/p evacuation of hematoma and excisional debridement. patient has wound vac on. says today she feels better than yesterday but still kind of groggy. pain controlled. patient being anticoagulated. wound vac in place functioning at 125mm Hg. [id number] of drainage from today thus far in the w cannister. there was over 300 from yesterday. does not appear to be blood. recommend monitoring overnight and discharge to nursing facility with wound vac tomorrow. f/u in wound center. Qualifiers: Encounter type: subsequent encounter Qualified Code(s): S80.11XD - Contusion of right lower leg, subsequent encounter Objective - Vital Signs Vital Signs: Vital Signs Temp Pulse Resp BP Pulse Ox 07/08/18 10:02 97.6 F 63 16 123/76 98 07/08/18 06:17 97.6 F 60 14 121/69 100 07/08/18 02:56 97.8 F 58 14 112/69 97 07/07/18 20:37 97.5 F L 68 15 117/71 100 07/07/18 15:37 97.9 F 68 16 103/61 98 07/07/18 11:17 97.7 F 76 18 113/69 98 Intake and Output 07/07/18 07/08/18 07/08/18 23:59 07:59 15:59 Intake Total 600 / 600 0 / 0 240 / 240 Output Total 680 / 680 100 / 100 720 / 720 Balance -80 / -80 -100 / -100 -480 / -480 Intake: Oral 600 / 600 0 / 0 240 / 240 Output: Urine 500 / 500 0 / 0 700 / 700 Wound Drainage 180 / 180 100 / 100 20 / 20 Right Calf 180 / 180 100 / 100 20 / 20 Other: Meal Dinner Breakfast Percent of Meal Consumed 100% 100% # Bowel Movements 0 Weight 179.1 kg Blood Glucose* 206 226 Patient Weight 07/08/18 23:59 Weight 179.1 kg - Lab Result Diagrams: 07/08/18 06:00 07/08/18 06:00 Labs: Abnormal lab results RBC 2.92 M/mcL (3.82-4.97) L 07/08/18 06:00 Hgb 8.8 g/dL (11.5-15.4) L 07/08/18 06:00 Hct 27.7 % (35.3-44.9) L 07/08/18 06:00 RDW 14.7 % (11.5-14.5) H 07/08/18 06:00 PT 12.4 Seconds (9.4-12.1) H 07/05/18 16:13 Heparin Anti-Xa, Unfract 0.28 IU/mL (0.30-0.70) L 07/07/18 11:38 Carbon Dioxide 31 mEq/L (23-29) H 07/08/18 06:00 Glucose 238 mg/dL (70-105) H 07/08/18 06:00 POC Glucose 253 mg/dL (70-99) H 07/06/18 20:43 Consult Discharge Plan - Plan Referrals: Delfino Valdes DO [Primary Care Provider] -
[2018-07-08] MEDS: Melatonin 3 MG TABLET PO SCH (20:40)
[2018-07-08] MEDS: Methocarbamol 750 MG TABLET PO SCH (20:43)
[2018-07-09 06:41] LABS: Hematocrit 30.3 % (35.3-44.9); Hemoglobin 9.5 g/dL (11.5-15.4); Mean Corpuscular HGB Conc 31.4 g/dL (31.6-35.5); Mean Corpuscular Hemoglobin 29.8 pg (28.0-33.3); Mean Platelet Volume 10.5 fL (9.4-12.4); Platelet Count 261 K/mcL (140-400); Red Blood Count 3.19 M/mcL (3.82-4.97); Red Cell Distribution Width 15.1 % (11.5-14.5)
[2018-07-09 07:03] LABS: Alanine Aminotransferase 16 Units/L (7-52); Albumin 3.4 g/dL (3.5-5.7); Albumin/Globulin Ratio 1.2 (1.1-2.2); Alkaline Phosphatase 61 Units/L (34-104); Aspartate Amino Transferase 19 Units/L (13-39); BUN/Creatinine Ratio 19 (6-26); Bilirubin,Total 0.3 mg/dL (0.3-1.0); Blood Urea Nitrogen 17 mg/dL (6-20); Calcium 9.2 mg/dL (8.6-10.3); Carbon Dioxide 33 mEq/L (23-29); Chloride 102 mEq/L (98-107); Globulin 2.8 g/dL (2.4-3.5); Glucose 152 mg/dL (70-105); Osmolality,Calculated 293 (280-300); Potassium 3.7 mEq/L (3.5-5.1); Sodium 139 mEq/L (136-145); Total Protein 6.2 g/dL (6.4-8.9); eGFR For Non-African Americans > 60 (> 60)
[2018-07-09] MEDS: Venlafaxine XR (24 HR) 75 MG CAP.ER.24H PO SCH (08:40)
[2018-07-09] MEDS: *HR* Rivaroxaban 10 MG TABLET PO SCH (08:41)
[2018-07-09] MEDS: Cyanocobalamin (B-12) 1,000 MCG TABLET PO SCH (08:42)
[2018-07-09] MEDS: Diltiazem CD (24hr) 240 MG CAPSULE PO SCH ×2 (08:42→21:57)
[2018-07-09] MEDS: *HR* OxyCODONE Immed Rel 15 MG TABLET PO SCH ×3 (08:44→21:56)
[2018-07-09] MEDS: Loratadine 10 MG TABLET PO SCH (08:45)
[2018-07-09] MEDS: Pregabalin 75 MG CAPSULE PO SCH ×3 (08:45→21:57)
[2018-07-09] MEDS: Furosemide 20 MG TABLET PO SCH ×2 (08:46→17:58)
[2018-07-09] MEDS: FLUoxetine 20 MG CAPSULE PO SCH (08:47)
[2018-07-09] MEDS: Insulin LISPRO 300 UNITS/3 ML VIAL SQ SCH ×6 (09:01→18:00)
--- NOTE | 2018-07-09 10:19 | Internal Med Progress Note ---
Hospitalist Progress Note - Encounter Date of Encounter: 07/09/18 - Exam Vitals: Temp Pulse Resp BP Pulse Ox 97.5 F L 70 16 109/69 98 07/09/18 07:07 07/09/18 07:07 07/09/18 07:07 07/09/18 07:07 07/09/18 07:07 - Assessment and Plan (1) Lymphedema in adult patient Current Visit: Yes Status: Chronic (2) Lower extremity edema Current Visit: Yes Status: Chronic (3) Morbid obesity Current Visit: Yes Status: Chronic (4) Venous stasis dermatitis Current Visit: Yes Status: Chronic (5) Diabetes Current Visit: Yes Status: Chronic (6) Hematoma of right lower extremity Current Visit: Yes Status: Acute (7) Hx of deep venous thrombosis Current Visit: Yes Status: Chronic - Time Spent with Patient Total time spent is greater than 50% in coordination of care (as documented) at patient's floor/unit and/or counseling patient: Internal Medicine: Result - Labs CBC & Chem 7: 07/09/18 06:14 07/09/18 06:14 Labs: Short CBC 07/09/18 Range/Units 06:14 WBC 9.8 (4.3-11.1) K/mcL Hgb 9.5 L (11.5-15.4) g/dL Hct 30.3 L (35.3-44.9) % Plt Count 261 (140-400) K/mcL BMP 07/09/18 06:14 Sodium 139 Potassium 3.7 Chloride 102 Carbon Dioxide 33 H BUN 17 Creatinine 0.89 Glucose 152 H Calcium 9.2 Liver Function 07/09/18 Range/Units 06:14 Total Bilirubin 0.3 (0.3-1.0) mg/dL AST 19 (13-39) Units/L ALT 16 (7-52) Units/L Alkaline Phosphatase 61 (34-104) Units/L Albumin 3.4 L (3.5-5.7) g/dL - ABG Interpretation ABG results: PT/INR, D-dimer PT 12.4 Seconds (9.4-12.1) H 07/05/18 16:13 Consult Discharge Plan - Plan Referrals: Delfino Valdes DO [Primary Care Provider] - (4) Venous stasis dermatitis Qualifiers: Laterality: bilateral Qualified Code(s): I87.2 - Venous insufficiency ( chronic) (peripheral) (5) Diabetes Qualifiers: Diabetes mellitus type: type 2 Diabetes mellitus penitentiary insulin use: with penitentiary use Diabetes mellitus complication status: with hyperglycemia Qualified Code(s): E11.65 - Type 2 diabetes mellitus with hyperglycemia; Z79.4 - retirement (current) use of insulin (6) Hematoma of right lower extremity Qualifiers: Encounter type: subsequent encounter Qualified Code(s): S80.11XD - Contusion of right lower leg, subsequent encounter
[2018-07-09] MEDS: Insulin DETEMIR 100 UNIT/ML X5UNITS SQ SCH ×3 (10:28→21:57)
--- NOTE | 2018-07-09 13:16 | Podiatry Progress Note ---
Date of Encounter: 07/09/18 Time of Encounter: 12:00 - Assessment and Plan (1) Hematoma of right lower extremity Current Visit: Yes Status: Acute s/p I&D of hematoma of RLE Plan: Stable and may be discharged to [place] [facility] as planned Will go with wound vac Will need wound vac changed every MWF- Large black simplace sponge Place adaptic to wound bed prior to application of sponge Connect to 125mmhg suction and record accurate I&O There is also a skin tear to the posterior aspect of right calf, please apply adaptic and 4x4 for protection - no appearance of infection, no drainage, appears to be healing without complication Elevate at all times Protect heels from skin breakdown PT to increase mobility Will need to follow up in wound care center with next AM. Nurse to make appointment Lower Extremity MRI 07/03/18 15:04 IMPRESSION: 1. Redemonstration of large fluid collection within the lateral soft tissues of the right lower extremity measuring approximately 2.5 x 13.2 x 21.5 cm. Findings again suggestive of remote hematoma given history of trauma. Sterility of this collection is indeterminate on imaging. Only minimal rim enhancement identified. 2. Extensive soft tissue edema with mild enhancement of the skin. Recommend clinical correlation to exclude cellulitis. Findings again may reflect longstanding venous stasis/lymph edema given symmetry with partially imaged left lower extremity. 3. No acute osseous abnormality identified. 4. Heterogeneous appearance of the bone marrow which is a nonspecific finding and can be seen in obese patient, smokers, and in the setting of anemia amongst other etiologies. Clinical and laboratory correlation suggested. D/ / Camron Chery MD / Camron Chery MD Interpreting Provider: Camron Chery MD on board and appreciated CT shows:1. Large mildly complex fluid collection centered within the lateral soft tissues of the right lower extremity measuring approximately 5.0 x 13.5 x 22.5 cm. Findings most suggestive of hematoma given history of trauma. No gas identified within the fluid collection. 2. Extensive soft tissue edema with associated skin thickening involving the right lower extremity. Similar edema and skin thickening of the partially imaged left lower extremity. Findings may reflect longstanding venous stasis/lymph edema. Recommend clinical correlation to exclude superimposed cellulitis. 3. No acute osseous abnormality. No CT evidence for osteomyelitis. Qualifiers: Encounter type: subsequent encounter Qualified Code(s): S80.11XD - Contusion of right lower leg, subsequent encounter Subjective Interval history: s/p I&D of right lateral leg hematoma- resting comfortably. States she feels good. States she is ready to get out of here. Wants to do PT and get stronger. Patient denies any fevers, chills, n/v or fls. Wound vac intact and running, 100ml serosang drainage to canister. States it was changed out last night. Objective - Vital Signs Vital Signs: Vital Signs Temp Pulse Resp BP Pulse Ox 07/09/18 07:07 97.5 F L 70 16 109/69 98 07/09/18 03:00 98.6 F 100 14 94/64 98 07/08/18 19:49 98.6 F 69 14 115/68 96 07/08/18 13:22 97.9 F 73 14 125/55 93 Intake and Output 07/08/18 07/09/18 07/09/18 23:59 07:59 15:59 Intake Total 480 / 480 240 / 240 240 / 240 Output Total 1200 / 1200 700 / 700 Balance -720 / -720 -460 / -460 240 / 240 Intake: Oral 480 / 480 240 / 240 240 / 240 Output: Urine 1000 / 1000 600 / 600 Wound Drainage 200 / 200 100 / 100 Right Calf 200 / 200 100 / 100 Other: Meal Dinner Breakfast Percent of Meal Consumed 100% 100% # Bowel Movements 0 Weight 178 kg Blood Glucose* 128 154 161 Patient Weight 07/09/18 23:59 Weight 178 kg - Exam Exam: General Examination: CONSTITUTIONAL: Alert, oriented, in no acute distress, non-toxic. EXTREMITIES: CFT 3 seconds all toes. Edema +1 and pedal pulses palpable. SKIN: Skin with decreased turgor, decreased subcutaneous tissue, skin thin and shiny with trophic changes associated with comorbidities as described in history.. Skin changes consistent with PVD and lymphedema NEUROLOGIC: Diminished sensation to light/moderate touch s/p evacuation of hematoma of right lateral leg Removed wound vac- healing well without complication [id number], 70% healthy granulation tissue to base, 30% yellow fibrous tissue Wound margins healthy Scant serosang drainage NO appearance of infection No surrounding edema, erythema or warmth Appears to be healing as expected. There is also a small skin tear to the posterior medial aspect of leg 0.3cmx0.3cm minimal depth. Patient reports she did it digging off the tape from the wound vac a couple nights ago. States it was itching. No appearance of infection. Appears to be healing - Lab Result Diagrams: 07/09/18 06:14 07/09/18 06:14 Labs: Abnormal lab results RBC 3.19 M/mcL (3.82-4.97) L 07/09/18 06:14 Hgb 9.5 g/dL (11.5-15.4) L 07/09/18 06:14 Hct 30.3 % (35.3-44.9) L 07/09/18 06:14 MCHC 31.4 g/dL (31.6-35.5) L 07/09/18 06:14 RDW 15.1 % (11.5-14.5) H 07/09/18 06:14 PT 12.4 Seconds (9.4-12.1) H 07/05/18 16:13 Heparin Anti-Xa, Unfract 0.28 IU/mL (0.30-0.70) L 07/07/18 11:38 Carbon Dioxide 33 mEq/L (23-29) H 07/09/18 06:14 Glucose 152 mg/dL (70-105) H 07/09/18 06:14 POC Glucose 128 mg/dL (70-99) H 07/08/18 19:47 Serum Total Protein 6.2 g/dL (6.4-8.9) L 07/09/18 06:14 Albumin 3.4 g/dL (3.5-5.7) L 07/09/18 06:14 Consult Discharge Plan - Plan Referrals: Delfino Valdes DO [Primary Care Provider] - Prescriptions: Oxycodone HCl 15 mg PO TID 2 Days #6 tablet
--- NOTE | 2018-07-09 13:57 | Discharge Summary ---
- NOTES TO OUTPATIENT PROVIDER Notes to Outpatient Provider: Pt admitted with large hematoma on her leg. Surgically evacuated. Wound vac in place. Date of Encounter: 07/09/18 Time of Encounter: 09:30 - Discharge Diagnosis (1) Hematoma of right lower extremity Priority: Primary Status: Acute Assessment and Plan: Continue wound vac per podiatry. Qualifiers: Encounter type: subsequent encounter Qualified Code(s): S80.11XD - Contusion of right lower leg, subsequent encounter (2) Hx of deep venous thrombosis Priority: Secondary Status: Chronic Assessment and Plan: Continue Xarelto. (3) Lymphedema in adult patient Priority: Secondary Status: Chronic Assessment and Plan: Chronic. 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 Chiang is a 48 year old female with hx of GERD, HTN, DM and morbid obesity transferred from [facility] due to presumed RLE cellulitis. She had about a 3 week hx of issues with her leg since a previous injury. She was evaluated and admitted for further treatment. Ms Chiang was admitted to med surg. She was initially started on IV abx and culture obtained. She was then seen by ID who did not feel she needed abx. Her legs had chronic venous stasis. She had a large hematoma laterally and CT was done. Podiatry was consulted. She had bedside evacuation of hematoma loose clots. On 07/06 she was taken to OR and hematoma evacuated and wound vac placed. She was restarted on Xarelto due to her hx of multiple DVTs. Overnight she had a lot of drainage in wound vac. There was no overt bleeding. She monitored for another night. Today she is feeling OK. She is afebrile and is ready for d/c to swing bed. Discharge discussed with: patient, nurse - Time Spent with Patient Total time spent providing and/or coordinating discharge services: 41min - Discharge Medications Prescriptions: Oxycodone HCl 15 mg PO TID 2 Days #6 tablet Home Medications: Diltiazem CD (24hr) [Cardizem CD] 240 mg PO BID 08/11/15 [History] hydrOXYzine pamoate [HydrOXYzine Pamoate] 25 - 50 mg PO Q6H PRN 08/11/15 [ History] Cyanocobalamin (Vitamin B-12) [Vitamin B12] 2,500 mcg PO DAILY 03/22/17 [History ] Ferrous Sulfate 325 mg PO BIDWM 03/22/17 [History] Furosemide [Lasix] 40 mg PO BID 03/22/17 [History] Insulin Glargine,Hum.rec.anlog [Toujeo Solostar] 65 unit SQ BID 03/22/17 [ History] Melatonin 5 mg PO HS 03/22/17 [History] Metformin HCl [Fortamet] 1,000 mg PO BID 03/22/17 [History] Methocarbamol [Robaxin] 750 mg PO HS 03/22/17 [History] Dulaglutide [Trulicity] 0.75 mg SQ QWEEK 03/21/18 [History] Montelukast [Singulair] 10 mg PO HS 03/21/18 [History] Oxybutynin [Ditropan] 5 mg PO BID 03/21/18 [History] Rivaroxaban [Xarelto] 10 mg PO DAILY #30 tablet 03/21/18 [Rx] Atorvastatin [Lipitor] 40 mg PO HS 07/02/18 [History] Cetirizine HCl [All Day Allergy] 10 mg PO DAILY 07/02/18 [History] FLUoxetine HCl [Prozac] 40 mg PO DAILY 07/02/18 [History] Insulin LISPRO [HumaLOG] 50 units SQ TIDWM 07/02/18 [History] Losartan Potassium [Cozaar] 50 mg PO DAILY 07/02/18 [History] Omeprazole [PriLOSEC] 40 mg PO DAILY 07/02/18 [History] Pregabalin [Lyrica] 150 mg PO TID 07/02/18 [History] Promethazine [Phenergan] 25 mg PO Q8H PRN 07/02/18 [History] Venlafaxine HCl [Venlafaxine HCl ER] 75 mg PO Q48H 07/02/18 [History] Acetaminophen [Tylenol] 650 mg PO Q6HR PRN tablet 07/09/18 [Rx] DiphenhydraMINE [Benadryl] 25 mg PO Q6HR PRN capsule 07/09/18 [Rx] Oxycodone HCl 15 mg PO TID 2 Days #6 tablet 07/09/18 [Rx] Allergies/Adverse Reactions: 3 Allergy/AdvReac Type Severity Reaction Status Date / Time Penicillins Allergy Intermediate Rash Verified 03/21/18 13:13 pioglitazone [From Actos] Allergy Intermediate See Verified 03/21/18 13:13 Comments sitagliptin [From Januvia] Allergy Intermediate See Verified 03/21/18 13:13 Comments Sulfa (Sulfonamide Allergy Intermediate Hives Verified 03/21/18 13:13 Antibiotics) nabumetone Allergy Muscle Pain Verified 03/21/18 13:13 sulfamethoxazole Allergy Rash Verified 03/21/18 13:13 [From Bactrim] trimethoprim [From Bactrim] Allergy Rash Verified 03/21/18 13:13 Date of admission: 07/04/18 09:37 Primary care physician: Delfino Valdes DO [facility] Discharging clinician: Alexandro Adame Anticipated date of discharge: 07/09/18 - Constitutional Vitals: Temp Pulse Resp BP Pulse Ox 97.5 F L 70 16 109/69 98 07/09/18 07:07 07/09/18 07:07 07/09/18 07:07 07/09/18 07:07 07/09/18 07:07 General appearance: Present: cooperative, A&O X 3, morbidly obese, pleasant, answers questions appropriately Exam: See below - Head Head exam: Present: atraumatic, normocephalic - Eye Eye exam: Present: EOMI, conjuntiva pink - ENT ENT exam: Present: mucous membranes moist - Respiratory Respiratory exam: Present: decreased breath sounds. Absent: rales, rhonchi, wheezes - Cardiovascular Cardiovascular exam: Present: RRR. Absent: tachycardia - GI/Abdominal GI/Abdominal exam: Present: soft. Absent: tenderness - Extremities Exam Extremities exam: Present: warm Additional comments: Chronic venous stasis changes and lymphedema bilaterally. Wound vac i place on R. - Neurological Exam Neurological exam: Present: alert, oriented X3 - Skin Skin exam: Present: dry, warm Additional comments: Chronic venous stasis changes bilaterally lower extremities. - Patient Status Disposition: Transfer Hospital Swing Bed Condition: Fair Functional capacity at discharge: uses cane/walker Overall status at discharge: patient is progressing back to baseline - Discharge Instructions Follow Up With: Delfino Valdes DO [Primary Care Provider] - - Diet and Activity Activity: as per physical therapy, increase activity as tolerated Diet: diabetic diet, low salt diet
--- NOTE | 2018-07-09 14:19 | Physician Discharge Referral ---
ExtendedCare Referral Info Transfer To: [facility] Provider in Charge after Transfer: PCP Institutional Level of Care: Skilled - Diagnosis (1) Hematoma of right lower extremity Priority: Primary Status: Acute (2) Hx of deep venous thrombosis Priority: Secondary Status: Chronic (3) Lymphedema in adult patient Priority: Secondary Status: Chronic (4) Lower extremity edema Priority: Secondary Status: Chronic (5) Morbid obesity Priority: Secondary Status: Chronic (6) Diabetes Priority: Secondary Status: Chronic (7) Venous stasis dermatitis Priority: Secondary Status: Chronic Expected Duration of Placement: Less than 30 days Prognosis: Fair Aware of Diagnosis: Patient Aware of Prognosis: Patient - Transfer Medications Prescriptions: Oxycodone HCl 15 mg PO TID 2 Days #6 tablet Home Medications: Diltiazem CD (24hr) [Cardizem CD] 240 mg PO BID 08/11/15 [History] hydrOXYzine pamoate [HydrOXYzine Pamoate] 25 - 50 mg PO Q6H PRN 08/11/15 [ History] Cyanocobalamin (Vitamin B-12) [Vitamin B12] 2,500 mcg PO DAILY 03/22/17 [History ] Ferrous Sulfate 325 mg PO BIDWM 03/22/17 [History] Furosemide [Lasix] 40 mg PO BID 03/22/17 [History] Insulin Glargine,Hum.rec.anlog [Roni Xavier] 65 unit SQ BID 03/22/17 [ History] Melatonin 5 mg PO HS 03/22/17 [History] Metformin HCl [Fortamet] 1,000 mg PO BID 03/22/17 [History] Methocarbamol [Robaxin] 750 mg PO HS 03/22/17 [History] Dulaglutide [Trulicity] 0.75 mg SQ QWEEK 03/21/18 [History] Montelukast [Singulair] 10 mg PO HS 03/21/18 [History] Oxybutynin [Ditropan] 5 mg PO BID 03/21/18 [History] Rivaroxaban [Xarelto] 10 mg PO DAILY #30 tablet 03/21/18 [Rx] Atorvastatin [Lipitor] 40 mg PO HS 07/02/18 [History] Cetirizine HCl [All Day Allergy] 10 mg PO DAILY 07/02/18 [History] FLUoxetine HCl [Prozac] 40 mg PO DAILY 07/02/18 [History] Insulin LISPRO [HumaLOG] 50 units SQ TIDWM 07/02/18 [History] Losartan Potassium [Cozaar] 50 mg PO DAILY 07/02/18 [History] Omeprazole [PriLOSEC] 40 mg PO DAILY 07/02/18 [History] Pregabalin [Lyrica] 150 mg PO TID 07/02/18 [History] Promethazine [Phenergan] 25 mg PO Q8H PRN 07/02/18 [History] Venlafaxine HCl [Venlafaxine HCl ER] 75 mg PO Q48H 07/02/18 [History] Acetaminophen [Tylenol] 650 mg PO Q6HR PRN tablet 07/09/18 [Rx] DiphenhydraMINE [Benadryl] 25 mg PO Q6HR PRN capsule 07/09/18 [Rx] Oxycodone HCl 15 mg PO TID 2 Days #6 tablet 07/09/18 [Rx] Allergies/Adverse Reactions: 3 Allergy/AdvReac Type Severity Reaction Status Date / Time Penicillins Allergy Intermediate Rash Verified 03/21/18 13:13 pioglitazone [From Actos] Allergy Intermediate See Verified 03/21/18 13:13 Comments sitagliptin [From Januvia] Allergy Intermediate See Verified 03/21/18 13:13 Comments Sulfa (Sulfonamide Allergy Intermediate Hives Verified 03/21/18 13:13 Antibiotics) nabumetone Allergy Muscle Pain Verified 03/21/18 13:13 sulfamethoxazole Allergy Rash Verified 03/21/18 13:13 [From Bactrim] trimethoprim [From Bactrim] Allergy Rash Verified 03/21/18 13:13 - Respiratory Orders None Smoking Cessation: Smoking cessation has been advised. For more information, call the [place] Tobacco Quit Line at 6-855-RQFY-NOW. - Lab Orders Lab Orders: 2 Step Mantoux Test per State regulation, CBC, Noe 17 - Ancillary Orders May use pressure relief devices daily prn, May have alcoholic beverages, May consult with Dentist, Drying Frame Operator, Projection Welding Machine Operator PRN - Advance Directives Code Status: Full Code - History and Physical History/Physical reviewed & approved w/add comments: Wound vac on R. - Mobility Orders Chair, Ambulate - Rehabiliation Orders Rehab Potential: Fair Rehab Orders: Evaluation for Physical Therapy, Evaluation for Occupational Therapy - Treatments Skin tear care topically daily PRN per policy, May check for fecal impaction rectally daily PRN, Fleet enema rectally every other day PRN cleansing purposes List/Other: Wound vac: Will need changed every MWF- Large black simplace sponge Place adaptic to wound bed prior to application of sponge Connect to 125mmhg suction and record accurate I&O There is also a skin tear to the posterior aspect of right calf, please apply adaptic and 4x4 for protection Will need to follow up in wound care center with next AM. - Diet Orders No Concentrated Sweets, Cardiac CERTIFICATION: I certify that the transfer of the above named patient to an Extended Care Facility is necessary for the continuing treatment of the diagnosis listed. The above information is true and accurate reflection of patient's current condition. Confidential - Redisclosure prohibited without a patient's written consent.
[2018-07-09 20:17] VITALS: BP 110/62
[2018-07-09] MEDS: Melatonin 3 MG TABLET PO SCH (21:57)
[2018-07-09] MEDS: Methocarbamol 750 MG TABLET PO SCH (21:57)
== END 2018-07-09 22:21 | disposition other institution (70) | DRG 580 ==
LOC: EMEROOARM 10:42 → 3ANU 10:42 → SUATTDRO 07-04 09:37
PROVIDERS: ADMIT Student in an Organized Health Care Education/Training Program; ATTEND Internal Medicine

== ENCOUNTER 2018-08-17 12:00 | Inpatient (IN) ==
[2018-08-17] MEDS ORDERED: *HR* FentaNYL (PF) 100 MCG/2 ML VIAL IVP ONE (12:14)
--- NOTE | 2018-08-17 12:15 | Emergency Department Note ---
Addendum entered and electronically signed by Ronnell Steel, 08/17/18 15:37: EKG 08/17/2018 at 15:29. Sinus tachycardia. Rate 103. W[place] 176. QRS 88. QTC 4 and 38. Left axis deviation. No acute ST elevation or depression. Patient was complaining of some mild chest discomfort and shortness of breath. She does report a history of anxiety. EKG shows no acute ST changes. Patient was given Benadryl and states that this has relieved all her symptoms currently. No rash, no lip or tongue swelling, no wheezing. Original Note: Disposition Clinical Impression: Cellulitis of leg, right Left knee pain Qualifiers: Chronicity: acute Qualified Code(s): M25.562 - Pain in left knee Fall Qualifiers: Encounter type: initial encounter Qualified Code(s): W19.XXXA - Unspecified fall, initial encounter Disposition: Admitted As Inpatient Condition: Fair Time of Disposition: 14:45 Lower Extremity Injury HPI - General Chief Complaint: ED Extremity Injury, Lower Stated Complaint: L knee pain Time Seen by Provider: 08/17/18 12:13 Source: patient, EMS Mode of arrival: EMS Limitations: no limitations Nursing Notes Reviewed: Yes Vital Signs Reviewed: Yes - History of Present Illness HPI Narrative: Patient is a 48-year-old female with past medical history of diabetes, prior history of DVT and currently on Xarelto, hypertension, neuropathy, GERD. She presents today due to concern for left knee injury and right lower extremity redness. Patient follows with Dr. Camargo for chronic right lower 70 when. She states that she fell in the past, suffered injury to the lateral right calf and had a hematoma that was removed surgically. She has a chronic right lower extremity wound VAC the she receives home health bandage changes 4. She also has chronic lower extremity venous stasis dermatitis that she is followed with Dr. Camargo for as well. She does report a history of previous cellulitis of the lower extremities in the past that was treated with vanc. She denies ever having any DVT in the lower 70s while on Xarelto. Patient states that prior to arrival, she had a fall where she fell onto her left knee while trying a delayed at home. She is reporting pain in the left knee joint. Denies any other injuries, did not hit her head, did not lose consciousness, no neck or back pain. No other chest pain, shortness breath, vomiting, diarrhea. She does have subjective fever and chills. She states that she called EMS, was helped up. She then tried to use the restroom today and was unable to get off the toilet. She is complaining of continued left knee pain. She also notes right lower extremity redness that started yesterday. Redness has slowly spread proximally from the right wound VAC site up to her medial inner thigh. She is concern for DVT versus cellulitis. Reports penicillin allergy. - Related Data Home Medications Medication Instructions Recorded Confirmed Diltiazem CD (24hr) [Cardizem CD] 240 mg PO BID 08/11/15 07/10/18 hydrOXYzine pamoate [HydrOXYzine 25 - 50 mg PO Q6H PRN 08/11/15 07/10/18 Pamoate] Ferrous Sulfate 325 mg PO BIDWM 03/22/17 07/10/18 Furosemide [Lasix] 40 mg PO BID 03/22/17 07/10/18 Insulin Glargine,Hum.rec.anlog 65 unit SQ BID 03/22/17 07/10/18 [[place] Solostar] Melatonin 5 mg PO HS 03/22/17 07/10/18 Metformin HCl [Fortamet] 1,000 mg PO BID 03/22/17 07/10/18 Methocarbamol [Robaxin] 750 mg PO HS 03/22/17 07/10/18 Dulaglutide [Trulicity] 0.75 mg SQ QWEEK 03/21/18 07/10/18 Montelukast [Singulair] 10 mg PO HS 03/21/18 07/10/18 Oxybutynin [Ditropan] 5 mg PO BID 03/21/18 07/10/18 Atorvastatin [Lipitor] 40 mg PO HS 07/02/18 07/10/18 FLUoxetine HCl [Prozac] 40 mg PO DAILY 07/02/18 07/10/18 Insulin LISPRO [HumaLOG] 50 units SQ TIDWM 07/02/18 07/10/18 Losartan Potassium [Cozaar] 50 mg PO DAILY 07/02/18 07/10/18 Omeprazole [PriLOSEC] 40 mg PO DAILY 07/02/18 07/10/18 Pregabalin [Lyrica] 150 mg PO TID 07/02/18 07/10/18 Promethazine [Phenergan] 25 mg PO Q8H PRN 07/02/18 07/10/18 Venlafaxine HCl [Venlafaxine HCl 75 mg PO Q48H 07/02/18 07/10/18 ER] Previous Rx's Medication Instructions Recorded Rivaroxaban [Xarelto] 10 mg PO DAILY #30 tablet 03/21/18 Acetaminophen [Tylenol] 650 mg PO Q6HR PRN tablet 07/09/18 DiphenhydraMINE [Benadryl] 25 mg PO Q6HR PRN capsule 07/09/18 Oxycodone HCl 15 mg PO TID 2 Days #6 tablet 07/09/18 Allergies Allergy/AdvReac Type Severity Reaction Status Date / Time Penicillins Allergy Intermediate Rash Verified 03/21/18 13:13 pioglitazone [From Actos] Allergy Intermediate See Verified 03/21/18 13:13 Comments sitagliptin [From Januvia] Allergy Intermediate See Verified 03/21/18 13:13 Comments Sulfa (Sulfonamide Allergy Intermediate Hives Verified 03/21/18 13:13 Antibiotics) nabumetone Allergy Muscle Pain Verified 03/21/18 13:13 sulfamethoxazole Allergy Rash Verified 03/21/18 13:13 [From Bactrim] trimethoprim [From Bactrim] Allergy Rash Verified 03/21/18 13:13 All systems ED: reviewed and negative except as stated. Constitutional: Reports: fever, chills Cardiovascular: Denies: chest pain Respiratory: Denies: cough, dyspnea Gastrointestinal: Reports: nausea. Denies: abdominal pain, vomiting, diarrhea Genitourinary: Denies: urgency, dysuria Musculoskeletal: Reports: myalgia Integumentary: Reports: lesions Neurological: Denies: headache, weakness, numbness, paresthesias Past Medical History - Past Medical History Attestation: Yes The following information was validated with the patient. Source: patient Medical history: Reports: DVT, diabetes, GERD, hyperlipidemia, hypertension Surgical history: Reports: appendectomy Psychiatric history: Reports: anxiety, depression - Social History Smoking Status: Former smoker Smokeless Tobacco Status: No Alcohol use: Reports: none Drug use: Reports: none Physical Exam - General Limitations: no limitations General appearance: alert - Head Head exam: atraumatic, normocephalic, normal inspection - Eye Eye exam: Present: normal appearance, PERRL, EOMI - ENT ENT exam: normal exam, normal oropharynx, mucous membranes moist - Neck Neck exam: Present: normal inspection, full ROM, trachea midline - Chest Chest inspection: Present: normal inspection, symmetric chest wall rise - Respiratory Respiratory exam: Present: normal lung sounds bilaterally - Cardiovascular Cardiovascular exam: Present: regular rate, normal rhythm, normal heart sounds - Abdominal Exam Abdominal exam: Present: soft, Non-Tender. Absent: tenderness, distention, gu arding, rebound, rigidity - Extremities Exam Extremities exam: Present: other (Exam of the lower extremity shows chronic venous stasis dermatitis, significant swelling, she is a right lateral lower leg wound VAC in place. Right lower extremity shows cellulitic changes from right calf up to proximal right thigh. Left knee evaluation shows tenderness to palpa tion over the kneecap and along the medial and lateral joint line. Patient has limited range of motion due to body habitus but not due to pain. No calf tenderness bilaterally.) - Neurological Exam Neurological exam: Present: alert, oriented X3 - Psychiatric Psychiatric exam: Present: normal affect, normal mood - Skin Skin exam: Present: warm, dry Course Course Narrative: Vital stable this time. We will perform x-rays of the left knee. Also concern for right lower extremity cellulitis. We will perform Doppler ultrasound of the right lower extremity to assess for any DVT. We will go ahead and start the patient empirically on vancomycin and meropenem. Cannot use Zosyn at this time due to penicillin allergy. We will perform basic labs, cultures. 14:45 elevated white blood cell count. X-ray did not left knee was negative fo r any fracture. Patient was started on vancomycin and meropenem for right lower extremity cellulitis. Ultrasound of the right lower showed a was limited due to body habitus but was negative for DVT. Knee X-Ray 08/17/18 12:12 IMPRESSION: 1. No acute left knee fracture. 2. 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 D/ / 08/17/2018 12:52:44 Ben Frausto MD / manuel Interpreting Provider: Ben Frausto MD Knee X-Ray 08/17/18 12:12 IMPRESSION: 1. No acute left knee fracture. 2. 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 D/ / 08/17/2018 12:52:44 Ben Frausto MD / manuel Interpreting Provider: Ben Frausto MD Vital Signs Temperature 98.3 F 08/17/18 12:03 Pulse Rate 79 08/17/18 12:03 Respiratory Rate 16 08/17/18 12:03 Blood Pressure 122/85 08/17/18 12:03 O2 Sat by Pulse Oximetry 100 08/17/18 12:03 Temperature 98.3 F 08/17/18 12:03 Pulse Rate 79 08/17/18 12:03 Respiratory Rate 16 08/17/18 12:03 Blood Pressure 122/85 08/17/18 12:03 O2 Sat by Pulse Oximetry 100 08/17/18 12:03 Oxygen Delivery Oxygen Delivery Room Air Extremity Injury, Lower - MDM Narrative Medical decision making narrative: Vital stable this time. We will perform x-rays of the left knee. Also concern for right lower extremity cellulitis. We will perform Doppler ultrasound of the right lower extremity to assess for any DVT. We will go ahead and start the p atient empirically on vancomycin and meropenem. Cannot use Zosyn at this time due to penicillin allergy. We will perform basic labs, cultures. 14:45 elevated white blood cell count. X-ray did not left knee was negative for any fracture. Patient was started on vancomycin and meropenem for right lower extremity cellulitis. Ultrasound of the right lower showed a was limited due to body habitus but was negative for DVT. - Medical Records Medical records reviewed: Yes I reviewed the patient's medical records. - Lab Data Lab results reviewed: Yes I reviewed the patient's lab results. Result diagrams: 08/17/18 12:14 08/17/18 12:14 Lab Results 08/17/18 08/17/18 08/17/18 Range/Units 12:14 12:14 12:14 WBC 13.1 H (4.3-11.1) K/mcL RBC 3.98 (3.82-4.97) M/mcL Hgb 11.6 (11.5-15.4) g/dL Hct 36.4 (35.3-44.9) % MCV 91.5 (83.0-100.0) fL MCH 29.1 (28.0-33.3) pg MCHC 31.9 (31.6-35.5) g/dL RDW 15.0 H (11.5-14.5) % Plt Count 232 (140-400) K/mcL MPV 11.3 (9.4-12.4) fL Immature Gran % 0.4 (0-4) % Seg Neutrophils % 90.1 % Lymphocytes % 5.2 % Monocytes % 3.4 % Eosinophils % 0.5 % Basophils % 0.4 % Neutrophils # 11.8 H (1.6-8.9) K/mcL Lymphocytes # 0.7 (0.6-4.6) K/mcL Monocytes # 0.4 (0.0-1.3) K/mcL Eosinophils # 0.1 (0.0-0.6) K/mcL Basophils # 0.1 (0.0-0.2) K/mcL Sodium 136 (136-145) mEq/L Potassium 4.0 (3.5-5.1) mEq/L Chloride 102 (98-107) mEq/L Carbon Dioxide 26 (23-29) mEq/L BUN 18 (6-20) mg/dL Creatinine 0.95 (0.60-1.20) mg/dL Est GFR ( Amer) > 60 (> 60) Est GFR (Non-Af Amer) > 60 (> 60) BUN/Creatinine Ratio 19 (6-26) Glucose 273 H (70-105) mg/dL Calculated Osmolality 294 (280-300) Lactic Acid 2.2 (0.5-2.2) mmol/L Calcium 9.1 (8.6-10.3) mg/dL - Radiology Data Radiology results reviewed: Yes I reviewed the patient's radiology results. Knee X-Ray 08/17/18 12:12 IMPRESSION: 1. No acute left knee fracture. 2. 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 D/ / 08/17/2018 12:52:44 Ben Frausto MD / manuel Interpreting Provider: Ben Frausto MD [facility] - [facility]. Situation: Demographics, MOA Background: Presenting Complaint, Relevant PMH, Meds, & Allergies Assessment: Vital Signs, Course and respsone to treatment, Exam Concerns, Patient/Family Expectation, Pertinant Lab Results Recommendation: Barrier(s) to disposition, Recommendation based on pending studies, treatments, or consults [facility] Report Given to: Dr. Art
[2018-08-17] MEDS ORDERED: Meropenem 1,000 MG in 0.9 % Sodium Chloride Mini Bag 100 ML IVPB ONE (12:17)
[2018-08-17 12:32] LABS: Basophils # 0.1 K/mcL (0.0-0.2); Basophils % 0.4 %; Eosinophils # 0.1 K/mcL (0.0-0.6); Eosinophils % 0.5 %; Hematocrit 36.4 % (35.3-44.9); Hemoglobin 11.6 g/dL (11.5-15.4); Immature Granulocytes % 0.4 % (0-4); Lymphocytes # 0.7 K/mcL (0.6-4.6); Lymphocytes % 5.2 %; Mean Corpuscular HGB Conc 31.9 g/dL (31.6-35.5); Mean Corpuscular Hemoglobin 29.1 pg (28.0-33.3); Mean Corpuscular Volume 91.5 fL (83.0-100.0); Mean Platelet Volume 11.3 fL (9.4-12.4); Monocytes # 0.4 K/mcL (0.0-1.3); Monocytes % 3.4 %; Neutrophils # 11.8 K/mcL (1.6-8.9); Platelet Count 232 K/mcL (140-400); Red Blood Count 3.98 M/mcL (3.82-4.97); Segmented Neutrophils % 90.1 %
[2018-08-17 12:49] LABS: BUN/Creatinine Ratio 19 (6-26); Blood Urea Nitrogen 18 mg/dL (6-20); Calcium 9.1 mg/dL (8.6-10.3); Carbon Dioxide 26 mEq/L (23-29); Chloride 102 mEq/L (98-107); Glucose 273 mg/dL (70-105); Osmolality,Calculated 294 (280-300); Sodium 136 mEq/L (136-145); eGFR For Non-African Americans > 60 (> 60)
--- NOTE | 2018-08-17 13:04 | Emergency Department Note ---
Disposition Clinical Impression: Cellulitis of leg, right Left knee pain Qualifiers: Chronicity: acute Qualified Code(s): M25.562 - Pain in left knee Fall Qualifiers: Encounter type: initial encounter Qualified Code(s): W19.XXXA - Unspecified fall, initial encounter Disposition: Admitted As Inpatient Condition: Fair Referrals: Delfino Valdes DO [Primary Care Provider] - General Adult HPI - General Chief complaint: ED Extremity Injury, Lower Stated complaint: L knee pain Time Seen by Provider: 08/17/18 12:13 Source: patient, EMS Mode of arrival: EMS Limitations: no limitations - History of Present Illness Pain Scale: 10 - Related Data Home Medications Medication Instructions Recorded Confirmed Diltiazem CD (24hr) [Cardizem CD] 240 mg PO BID 08/11/15 07/10/18 hydrOXYzine pamoate [HydrOXYzine 25 - 50 mg PO Q6H PRN 08/11/15 07/10/18 Pamoate] Ferrous Sulfate 325 mg PO BIDWM 03/22/17 07/10/18 Furosemide [Lasix] 40 mg PO BID 03/22/17 07/10/18 Insulin Glargine,Hum.rec.anlog 65 unit SQ BID 03/22/17 07/10/18 [[place] Solostar] Melatonin 5 mg PO HS 03/22/17 07/10/18 Metformin HCl [Fortamet] 1,000 mg PO BID 03/22/17 07/10/18 Methocarbamol [Robaxin] 750 mg PO HS 03/22/17 07/10/18 Dulaglutide [Trulicity] 0.75 mg SQ QWEEK 03/21/18 07/10/18 Montelukast [Singulair] 10 mg PO HS 03/21/18 07/10/18 Oxybutynin [Ditropan] 5 mg PO BID 03/21/18 07/10/18 Atorvastatin [Lipitor] 40 mg PO HS 07/02/18 07/10/18 FLUoxetine HCl [Prozac] 40 mg PO DAILY 07/02/18 07/10/18 Insulin LISPRO [HumaLOG] 50 units SQ TIDWM 07/02/18 07/10/18 Losartan Potassium [Cozaar] 50 mg PO DAILY 07/02/18 07/10/18 Omeprazole [PriLOSEC] 40 mg PO DAILY 07/02/18 07/10/18 Pregabalin [Lyrica] 150 mg PO TID 07/02/18 07/10/18 Promethazine [Phenergan] 25 mg PO Q8H PRN 07/02/18 07/10/18 Venlafaxine HCl [Venlafaxine HCl 75 mg PO Q48H 07/02/18 07/10/18 ER] Previous Rx's Medication Instructions Recorded Rivaroxaban [Xarelto] 10 mg PO DAILY #30 tablet 03/21/18 Acetaminophen [Tylenol] 650 mg PO Q6HR PRN tablet 07/09/18 DiphenhydraMINE [Benadryl] 25 mg PO Q6HR PRN capsule 07/09/18 Oxycodone HCl 15 mg PO TID 2 Days #6 tablet 07/09/18 Allergies Allergy/AdvReac Type Severity Reaction Status Date / Time Penicillins Allergy Intermediate Rash Verified 03/21/18 13:13 pioglitazone [From Actos] Allergy Intermediate See Verified 03/21/18 13:13 Comments sitagliptin [From Januvia] Allergy Intermediate See Verified 03/21/18 13:13 Comments Sulfa (Sulfonamide Allergy Intermediate Hives Verified 03/21/18 13:13 Antibiotics) nabumetone Allergy Muscle Pain Verified 03/21/18 13:13 sulfamethoxazole Allergy Rash Verified 03/21/18 13:13 [From Bactrim] trimethoprim [From Bactrim] Allergy Rash Verified 03/21/18 13:13 Constitutional: Reports: fever, chills Cardiovascular: Denies: chest pain Respiratory: Denies: cough, dyspnea Gastrointestinal: Reports: nausea. Denies: abdominal pain, vomiting, diarrhea Genitourinary: Denies: urgency, dysuria Musculoskeletal: Reports: myalgia Integumentary: Reports: lesions Neurological: Denies: headache, weakness, numbness, paresthesias Past Medical History - Past Medical History Medical history: Reports: DVT, diabetes, GERD, hyperlipidemia, hypertension Surgical history: Reports: appendectomy Psychiatric history: Reports: anxiety, depression - Social History Smoking Status: Former smoker Smokeless Tobacco Status: No Alcohol use: Reports: none Drug use: Reports: none Physical Exam - General Limitations: no limitations General appearance: alert Course Vital Signs Temperature 98.3 F 08/17/18 12:03 Pulse Rate 79 08/17/18 12:03 Respiratory Rate 16 08/17/18 12:03 Blood Pressure 122/85 08/17/18 12:03 O2 Sat by Pulse Oximetry 100 08/17/18 12:03 Temperature 98.3 F 08/17/18 12:03 Pulse Rate 103 08/17/18 14:46 Respiratory Rate 16 08/17/18 15:59 Blood Pressure 117/59 08/17/18 15:59 O2 Sat by Pulse Oximetry 100 08/17/18 14:46 Oxygen Delivery Oxygen Delivery Room Air Medical Decision Making - Lab Data Result diagrams: 08/17/18 12:14 08/17/18 12:14 Lab Results 08/17/18 08/17/18 08/17/18 Range/Units 12:14 12:14 12:14 WBC 13.1 H (4.3-11.1) K/mcL RBC 3.98 (3.82-4.97) M/mcL Hgb 11.6 (11.5-15.4) g/dL Hct 36.4 (35.3-44.9) % MCV 91.5 (83.0-100.0) fL MCH 29.1 (28.0-33.3) pg MCHC 31.9 (31.6-35.5) g/dL RDW 15.0 H (11.5-14.5) % Plt Count 232 (140-400) K/mcL MPV 11.3 (9.4-12.4) fL Immature Gran % 0.4 (0-4) % Seg Neutrophils % 90.1 % Lymphocytes % 5.2 % Monocytes % 3.4 % Eosinophils % 0.5 % Basophils % 0.4 % Neutrophils # 11.8 H (1.6-8.9) K/mcL Lymphocytes # 0.7 (0.6-4.6) K/mcL Monocytes # 0.4 (0.0-1.3) K/mcL Eosinophils # 0.1 (0.0-0.6) K/mcL Basophils # 0.1 (0.0-0.2) K/mcL Sodium 136 (136-145) mEq/L Potassium 4.0 (3.5-5.1) mEq/L Chloride 102 (98-107) mEq/L Carbon Dioxide 26 (23-29) mEq/L BUN 18 (6-20) mg/dL Creatinine 0.95 (0.60-1.20) mg/dL Est GFR ( Amer) > 60 (> 60) Est GFR (Non-Af Amer) > 60 (> 60) BUN/Creatinine Ratio 19 (6-26) Glucose 273 H (70-105) mg/dL Calculated Osmolality 294 (280-300) Lactic Acid 2.2 (0.5-2.2) mmol/L Calcium 9.1 (8.6-10.3) mg/dL Attestation Statement - Attestation Attestation: I examined this patient and my medical decision-making was reviewed with the Resident Physician. I agree with the documented findings, disposition and treatment plan as described except to the extent set forth below. Patient presents to the ED with a chief complaint of left knee pain. She has a fall today and landed on her knee. She thought she was okay but she was unable to get up from the toilet. She also complaining of some redness and pain in the right leg. She currently has a wound VAC on it that was placed by the annual giving officer. It is now red and hot all the way up her thigh. Subjective fevers. On examination she does not have any asymmetric swelling to her lower extremities. She does have some tenderness to the left knee. I do not appreciate any deformities. Right leg has a wound VAC on the right lateral calf. She does have erythema and warmth extending up into the groin area. It does not appear to involve the perineum. Plan. Septic workup. X-ray left knee. X-ray unremarkable. No obvious DVT with the exam is limited secondary to her body habitus. She is admitted for IV antibiotics for the cellulitis of her leg.
[2018-08-17] MEDS ORDERED: *HR* Promethazine 25 MG/ML VIAL IVP PRN (15:33)
[2018-08-17] MEDS ORDERED: Naloxone 0.4 MG/ML INJ IVP PRN (15:33)
[2018-08-17] MEDS ORDERED: Acetaminophen 325 MG TABLET PO PRN (15:33)
[2018-08-17] MEDS ORDERED: Venlafaxine XR (24 HR) 75 MG CAP.ER.24H PO SCH (17:15)
--- NOTE | 2018-08-17 17:25 | Internal Med History&Physical ---
Date of Encounter: 08/17/18 Time of Encounter: 17:18 Internal Medicine - H&P: HPI Chief complaint: Rt leg cellulities, fall Admitted From: Emergency Dept Plans for Post Hospital Care: Home History of present illness: Ms. Chiang is a 48 year old female with a known past medical history of hypertension, hyperlipidemia, DVT on Xarelto anticoagulation, diabetes type II, morbid obesity with BMI @ 69, who recently had right leg hematoma the status post I & D as well as Excisional debridement to muscle wound right leg on 07/06/18 and woud vac placed, now she presented to ER with fall at home due to her left knee pain as well as worsening right lower ext redness. Patient denied any head trauma. Her left knee x-ray did not show any effusion. Patient does have worsening redness and tenderness in the right lower extremity extending from ankle to all the way up to the thigh. She denied any fever and any trauma to the right leg. Had a venous Doppler done in the ER waiting for final report Past Med Surg Social Fam HX - Past Medical History Medical history: DVT, diabetes, GERD, hyperlipidemia, hypertension Additional medical history: Sleep apnea, Lymphedema, DM neuropathy, Cellulitis, Psychiatric history: anxiety, depression - Past Surgical History Surgical History: appendectomy - Social History Smoking Status: Former smoker Smokeless Tobacco Status: No Alcohol use: none Drug use: none - Family History Mother Family Member Ethnicity: Non- Living Status: Hx Family Cardiac Disorders: Yes Hx Family Respiratory Disorders: No Hx Family Cancer: No Hx Family GI Disorders: No Hx Family Endocrine Disorder: No Hx Family Neuromuscular Disorders: No Hx Family Neurologic Disorders: No Hx Family HEENT Disorders: No Hx Family Autoimmune Disorders: No Father Adopted: No Living Status: Hx Family Cardiac Disorders: Yes Hx Family Respiratory Disorders: Yes Hx Family Cancer: No Hx Family GI Disorders: No Hx Family Endocrine Disorder: Yes Hx Family Neuromuscular Disorders: No Hx Family Neurologic Disorders: No Hx Family HEENT Disorders: No Hx Family Autoimmune Disorders: No Internal Medicine - H&P: Meds Diltiazem CD (24hr) [Cardizem CD] 240 mg PO BID 08/11/15 [History] hydrOXYzine pamoate [HydrOXYzine Pamoate] 25 - 50 mg PO Q6H PRN 08/11/15 [History] Ferrous Sulfate 325 mg PO BIDWM 03/22/17 [History] Furosemide [Lasix] 40 mg PO BID 03/22/17 [History] Insulin Glargine,Hum.rec.anlog [Toujeo Solostar] 65 unit SQ BID 03/22/17 [History] Melatonin 5 mg PO HS 03/22/17 [History] Metformin HCl [Fortamet] 1,000 mg PO BID 03/22/17 [History] Methocarbamol [Robaxin] 750 mg PO HS 03/22/17 [History] Dulaglutide [Trulicity] 0.75 mg SQ QWEEK 03/21/18 [History] Montelukast [Singulair] 10 mg PO HS 03/21/18 [History] Oxybutynin [Ditropan] 5 mg PO BID 03/21/18 [History] Rivaroxaban [Xarelto] 10 mg PO DAILY #30 tablet 03/21/18 [Rx] Atorvastatin [Lipitor] 40 mg PO HS 07/02/18 [History] FLUoxetine HCl [Prozac] 40 mg PO DAILY 07/02/18 [History] Insulin LISPRO [HumaLOG] 50 units SQ TIDWM 07/02/18 [History] Losartan Potassium [Cozaar] 50 mg PO DAILY 07/02/18 [History] Omeprazole [PriLOSEC] 40 mg PO DAILY 07/02/18 [History] Pregabalin [Lyrica] 150 mg PO TID 07/02/18 [History] Promethazine [Phenergan] 25 mg PO Q8H PRN 07/02/18 [History] Venlafaxine HCl [Venlafaxine HCl ER] 75 mg PO Q48H 07/02/18 [History] Acetaminophen [Tylenol] 650 mg PO Q6HR PRN tablet 07/09/18 [Rx] DiphenhydraMINE [Benadryl] 25 mg PO Q6HR PRN capsule 07/09/18 [Rx] Oxycodone HCl 15 mg PO TID 2 Days #6 tablet 07/09/18 [Rx] Allergy/AdvReac Type Severity Reaction Status Date / Time Penicillins Allergy Intermediate Rash Verified 03/21/18 13:13 pioglitazone [From Actos] Allergy Intermediate See Verified 03/21/18 13:13 Comments sitagliptin [From Januvia] Allergy Intermediate See Verified 03/21/18 13:13 Comments Sulfa (Sulfonamide Allergy Intermediate Hives Verified 03/21/18 13:13 Antibiotics) nabumetone Allergy Muscle Pain Verified 03/21/18 13:13 sulfamethoxazole Allergy Rash Verified 03/21/18 13:13 [From Bactrim] trimethoprim [From Bactrim] Allergy Rash Verified 03/21/18 13:13 All Systems PM: A 10-system review of systems was performed and is negative for pertinent findings except as documented above in the HPI. Review of systems: All the systems are reviewed everything is benign except the systems and symptoms I mentioned in the history of present illness - Constitutional Vitals: Temp Pulse Resp BP Pulse Ox 99.3 F 83 15 103/65 93 08/17/18 16:51 08/17/18 16:51 08/17/18 16:51 08/17/18 16:51 08/17/18 16:51 General appearance: Present: cooperative, A&O X 3, no acute distress, answers qu estions appropriately Exam: See below - Head Head exam: Present: atraumatic, normal inspection - Neck Neck exam general surgery: Present: supple - Respiratory Respiratory exam: Present: decreased breath sounds. Absent: rales, respiratory distress, rhonchi, wheezes - Cardiovascular Cardiovascular exam: Present: RRR, +S1, +S2. Absent: tachycardia - GI/Abdominal GI/Abdominal exam: Present: distended, normal bowel sounds, soft. Absent: rigid, tenderness - Extremities Exam Extremities exam: Present: tenderness (Right leg). Absent: calf tenderness Additional comments: Diffuse swelling, erythema and tenderness in Rt leg.. Few small blisters noticed over Rt leg.. Wound vac on lateral side of leg noticed. Her erythema extending from rt ankle to Rt thigh noticed. - Back Exam Back exam: Absent: CVA tenderness (L), CVA tenderness (R) - Neurological Exam Neurological exam: Present: alert, oriented X3 - Psychiatric Psychiatric exam: Present: normal affect, normal mood - Skin Skin exam: Absent: rash Internal Med - H&P Results - Labs CBC & Chem 7: 08/17/18 12:14 08/17/18 12:14 Labs: Short CBC 08/17/18 Range/Units 12:14 WBC 13.1 H (4.3-11.1) K/mcL Hgb 11.6 (11.5-15.4) g/dL Hct 36.4 (35.3-44.9) % Plt Count 232 (140-400) K/mcL Neutrophils # 11.8 H (1.6-8.9) K/mcL BMP 08/17/18 12:14 Sodium 136 Potassium 4.0 Chloride 102 Carbon Dioxide 26 BUN 18 Creatinine 0.95 Glucose 273 H Calcium 9.1 - Impressions ITS Impressions Knee X-Ray 08/17/18 12:12 IMPRESSION: 1. No acute left knee fracture. 2. 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 D/ / 08/17/2018 12:52:44 Ben Frausto MD / manuel Interpreting Provider: Ben Frausto MD Chest X-Ray 08/17/18 15:09 IMPRESSION: Congestive heart failure D/ / Jatinder Vernon MD / Jatinder Vernon MD Interpreting Provider: Jatinder Vernon MD - Assessment and plan (1) Cellulitis of leg, right Current Visit: Yes Status: Acute Assessment and plan: Admit the pt into Med Surg Does need to stay in the hospital more than 2 MN due to her complex medical problems s/p I & D Rt leg hematoma with Excisional debridement to muscle wound right leg wound vac + Does have diffuse cellulites started on broad spec abx Meropenem and Vancomycin Blood cx drawn in the ER Will order wound cx consulted trade union official remove wound vac daily dressing with maxsorb for now will get x ray of Rt leg for now (2) SIRS (systemic inflammatory response syndrome) Current Visit: Yes Status: Acute Assessment and plan: Does meet SIRS criteria with elevated WBC, source of inf as Rt leg cellulities (3) Left knee pain Current Visit: Yes Status: Acute Assessment and plan: due to DJD reviewed X ray of Knee - no effusions PT / OT Pain meds Qualifiers: Chronicity: acute Qualified Code(s): M25.562 - Pain in left knee (4) DVT (deep venous thrombosis) Current Visit: No Status: Chronic Assessment and plan: cont home med Xarelto Qualifiers: DVT location: lower extremity Affected thrombotic vein of extremity: unspecified vein of extremity Chronicity: chronic Laterality: bilateral Qualified Code(s): I82.503 - Chronic embolism and thrombosis of unspecified deep veins of lower extremity, bilateral (5) Diabetes Current Visit: No Status: Chronic Assessment and plan: on ISS + Levemir will check Hb A1C Qualifiers: Diabetes mellitus type: type 2 Diabetes mellitus emt intermediate insulin use: with mcfp use Diabetes mellitus complication status: with hyperglycemia Qualified Code(s): E11.65 - Type 2 diabetes mellitus with hyperglycemia; Z79.4 - emt intermediate (current) use of insulin (6) Hypertension Current Visit: No Status: Chronic Assessment and plan: resumed home meds cont close monitoring Qualifiers: Hypertension type: essential hypertension Qualified Code(s): I10 - Essential (primary) hypertension (7) Lymphedema in adult patient Current Visit: No Status: Chronic (8) Venous stasis dermatitis Current Visit: No Status: Chronic Assessment and plan: wound care Qualifiers: Laterality: bilateral Qualified Code(s): I87.2 - Venous insufficiency (chronic) (peripheral) (9) Morbid obesity Current Visit: No Status: Chronic - Time Spent With Patient Total time spent is greater than 50% in coordination of care (as documented) at patient's floor/unit and/or counseling patient:
[2018-08-17] MEDS ORDERED: *HR* Dextrose 50 % in Water (Syg) 50 ML SYRINGE IVP PRN (17:35)
[2018-08-17] MEDS ORDERED: Dextrose Gel 15 GM/37.5 ML TUBE PO PRN ×2 (17:35)
[2018-08-17] MEDS ORDERED: D5% in Water 1,000 ML IVC PRN (17:35)
[2018-08-17 18:08] LABS: Estimated Average Glucose 143 mg/dl; Hemoglobin A1C 6.6 %
[2018-08-17] MEDS: Meropenem 500 MG in Water for inj. (sterile) 20 ML 5 ML IVP SCH (20:39)
[2018-08-17] MEDS: Furosemide 20 MG TABLET PO SCH ×2 (20:40→21:22)
[2018-08-17] MEDS: Insulin DETEMIR 100 UNIT/ML X5UNITS SQ SCH (20:40)
[2018-08-17] MEDS: Lactobacillus 1 EACH CAP.SPRINK PO SCH (20:40)
[2018-08-17] MEDS: Pregabalin 75 MG CAPSULE PO SCH (20:40)
[2018-08-17] MEDS: Melatonin 3 MG TABLET PO SCH (20:40)
[2018-08-17] MEDS: Insulin LISPRO 300 UNITS/3 ML VIAL SQ SCH (20:41)
[2018-08-18] MEDS: traMADol 50 MG TABLET PO PRN (03:03)
[2018-08-18 03:17] LABS: Basophils % 0.4 %; Eosinophils # 0.1 K/mcL (0.0-0.6); Eosinophils % 1.3 %; Hematocrit 30.6 % (35.3-44.9); Immature Granulocytes % 0.4 % (0-4); Lymphocytes # 0.7 K/mcL (0.6-4.6); Lymphocytes % 7.5 %; Mean Corpuscular Hemoglobin 29.4 pg (28.0-33.3); Mean Corpuscular Volume 91.9 fL (83.0-100.0); Monocytes # 0.5 K/mcL (0.0-1.3); Neutrophils # 8.4 K/mcL (1.6-8.9); Platelet Count 173 K/mcL (140-400); Red Blood Count 3.33 M/mcL (3.82-4.97); Red Cell Distribution Width 15.2 % (11.5-14.5); Segmented Neutrophils % 85.4 %
[2018-08-18 03:18] LABS: Hemoglobin 9.8 g/dL (11.5-15.4)
[2018-08-18 03:39] LABS: BUN/Creatinine Ratio 19 (6-26); Blood Urea Nitrogen 15 mg/dL (6-20); Calcium 8.7 mg/dL (8.6-10.3); Carbon Dioxide 25 mEq/L (23-29); Chloride 104 mEq/L (98-107); Glucose 261 mg/dL (70-105); Osmolality,Calculated 290 (280-300); Potassium 3.8 mEq/L (3.5-5.1); Sodium 135 mEq/L (136-145); eGFR For Non-African Americans > 60 (> 60)
[2018-08-18] MEDS: *HR* OxyCODONE Immed Rel 5 MG TABLET PO PRN ×2 (04:10→14:07)
[2018-08-18] MEDS: Meropenem 500 MG in Water for inj. (sterile) 20 ML 5 ML IVP SCH ×3 (04:18→20:43)
[2018-08-18] MEDS: Insulin LISPRO 300 UNITS/3 ML VIAL SQ SCH ×7 (08:31→20:42)
[2018-08-18] MEDS: Diltiazem CD (24hr) 240 MG CAPSULE PO SCH (08:32)
[2018-08-18] MEDS: Lactobacillus 1 EACH CAP.SPRINK PO SCH ×2 (08:32→20:39)
[2018-08-18] MEDS: Pregabalin 75 MG CAPSULE PO SCH ×3 (08:32→20:40)
[2018-08-18] MEDS: *HR* Rivaroxaban 10 MG TABLET PO SCH (08:33)
[2018-08-18] MEDS: Furosemide 20 MG TABLET PO SCH ×2 (08:33→16:07)
[2018-08-18] MEDS: FLUoxetine 20 MG CAPSULE PO SCH (08:33)
[2018-08-18] MEDS: Insulin DETEMIR 100 UNIT/ML X5UNITS SQ SCH ×2 (08:35→20:39)
--- NOTE | 2018-08-18 10:32 | Internal Med Progress Note ---
<Kriss Harp E - Last Filed: 08/18/18 10:26> Hospitalist Progress Note - Encounter Date of Encounter: 08/18/18 Time of Encounter: 10:26 - Subjective Interval History: Ms. Chiang was seen at bedside this morining. No acute distress. She says she is still having pain in her left knee from where she fell and her right leg from her hip to her ankle is painful from the cellulitis. - Exam Vitals: Temp Pulse Resp BP Pulse Ox 98.4 F 75 16 118/67 95 08/18/18 07:55 08/18/18 07:55 08/18/18 07:55 08/18/18 07:55 08/18/18 07:55 Exam: General: AAOx3, answers questions appropriately Heart: RRR, no murmurs, rubs, or gallops Lungs: CTAB, no wheezing, rhonchi Extremities: both lower extremtiies show signs of venous stasis changes. Left knee is slightly painful to palpation with some slight swelling ad swelling of cielo left foot which patient states is always there. Right leg is painful to palpation around the knee and laterally to the ankle. Would on lateral leg is draining brownish yellow fluid that is foul smelling. some slight crepitus can be heard on plation of the skin the the lateral aspect of the right knee. Errythma from the knee that spreads down the right dorsal foot is noted. Skin: warm dry and intact other than stated above - Assessment and Plan (1) Cellulitis of leg, right Current Visit: Yes Status: Acute Assessment and Plan: Started on meropenem and vancomycin Wound cultures pending Blood cultures pending Rn Acute consulted as he has been taking care fo the right leg ulcer XR right knee showed some subcutaneous gas pockets, CT right leg ordered Orthopedics consulted appreciate recommendations daily wound dressing with maxsorb awaiting podiatry recommendations (2) Left knee pain Current Visit: Yes Status: Acute Assessment and Plan: due to degenerative disease No effusions noted on XR PT/OT and pain medication (3) SIRS (systemic inflammatory response syndrome) Current Visit: Yes Status: Acute Assessment and Plan: white blood cell count down to day to 9.8 from yesterdays 13.3 source of infection cellulitis (4) DVT (deep venous thrombosis) Current Visit: No Status: Chronic Assessment and Plan: continue xerelto for chronic DVT (5) Diabetes Current Visit: No Status: Chronic Assessment and Plan: SSI + levamir (6) Hypertension Current Visit: No Status: Chronic Assessment and Plan: continue home medications (7) Lymphedema in adult patient Current Visit: No Status: Chronic Assessment and Plan: chronic lymphedema in bilateral lower extremities (8) Venous stasis dermatitis Current Visit: No Status: Chronic Assessment and Plan: noted on both lower extremities (9) Morbid obesity Current Visit: No Status: Chronic Assessment and Plan: consult to nutrition due to excess caloric intake DVT Prophylaxis: currently on xerelto for chronic DVT of lower extremity - Time Spent with Patient Total time spent is greater than 50% in coordination of care (as documented) at patient's floor/unit and/or counseling patient: Plan of Care Discussed with: patient Internal Medicine: Result - Labs CBC & Chem 7: 08/18/18 02:34 08/18/18 02:34 Labs: Short CBC 08/17/18 08/18/18 Range/Units 12:14 02:34 WBC 13.1 H 9.8 (4.3-11.1) K/mcL Hgb 11.6 9.8 L D (11.5-15.4) g/dL Hct 36.4 30.6 L (35.3-44.9) % Plt Count 232 173 (140-400) K/mcL Neutrophils # 11.8 H 8.4 (1.6-8.9) K/mcL BMP 08/17/18 08/18/18 12:14 02:34 Sodium 136 135 L Potassium 4.0 3.8 Chloride 102 104 Carbon Dioxide 26 25 BUN 18 15 Creatinine 0.95 0.79 Glucose 273 H 261 H Calcium 9.1 8.7 - Impressions Impressions Knee X-Ray 08/17/18 12:12 IMPRESSION: 1. No acute left knee fracture. 2. 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 D/ / 08/17/2018 12:52:44 Ben Frausto MD / manuel Interpreting Provider: Ben Frausto MD Chest X-Ray 08/17/18 15:09 IMPRESSION: Congestive heart failure D/ / Jatinder Vernon MD / Jatinder Vernon MD Interpreting Provider: Jatinder Vernon MD Tibia/Fibula X-Ray 08/17/18 18:17 IMPRESSION: 1. No acute osseous abnormality of the right tibia and fibula. 2. Suspected subcutaneous gas is identified at the level of the lateral knee. D/ / 08/17/2018 22:54:43 Jillian Ram MD / manuel Interpreting Provider: Jillian Ram MD Knee CT 08/18/18 08:33 IMPRESSION: 1. A few foci of superficial soft tissue air in the lateral soft tissues of the knee with question of a and enveloping collection measuring about 6.6 x 2.6 cm in cross-section. Findings are suspicious for abscess but evaluation is limited by lack of IV contrast. 2. These foci of air far removed from the superficial and deep fascia and would not be typical for necrotizing fasciitis. 3. Generalized soft tissue swelling could be vascular in nature but could also represent cellulitis. D/ / Mike Mendoza / iMke Mendoza Interpreting Provider: Mike Mendoza Consult Discharge Plan - Plan Referrals: Delfino Valdes DO [Primary Care Provider] - <Fahad Tellez - Last Filed: 08/18/18 14:30> Hospitalist Progress Note - Encounter Date of Encounter: 08/18/18 Time of Encounter: 09:45 - Exam Vitals: Temp Pulse Resp BP Pulse Ox 98 F 78 16 127/79 99 08/18/18 12:48 08/18/18 12:48 08/18/18 12:48 08/18/18 12:48 08/18/18 12:48 - Assessment and Plan (1) Lymphedema in adult patient Current Visit: Yes Status: Chronic (2) Morbid obesity Current Visit: No Status: Chronic (3) Venous stasis dermatitis Current Visit: No Status: Chronic (4) Diabetes Current Visit: No Status: Chronic (5) DVT (deep venous thrombosis) Current Visit: No Status: Chronic (6) Hypertension Current Visit: No Status: Chronic (7) Cellulitis of leg, right Current Visit: Yes Status: Acute (8) Left knee pain Current Visit: Yes Status: Acute (9) SIRS (systemic inflammatory response syndrome) Current Visit: Yes Status: Acute - Time Spent with Patient Total time spent is greater than 50% in coordination of care (as documented) at patient's floor/unit and/or counseling patient: Internal Medicine: Result - Labs CBC & Chem 7: 08/18/18 02:34 08/18/18 02:34 Labs: Short CBC 08/18/18 Range/Units 02:34 WBC 9.8 (4.3-11.1) K/mcL Hgb 9.8 L D (11.5-15.4) g/dL Hct 30.6 L (35.3-44.9) % Plt Count 173 (140-400) K/mcL Neutrophils # 8.4 (1.6-8.9) K/mcL BMP 08/18/18 02:34 Sodium 135 L Potassium 3.8 Chloride 104 Carbon Dioxide 25 BUN 15 Creatinine 0.79 Glucose 261 H Calcium 8.7 - Impressions Impressions Chest X-Ray 08/17/18 15:09 IMPRESSION: Congestive heart failure D/ / Jatinder Vernon MD / Jatinder Vernon MD Interpreting Provider: Jatinder Vernon MD Tibia/Fibula X-Ray 08/17/18 18:17 IMPRESSION: 1. No acute osseous abnormality of the right tibia and fibula. 2. Suspected subcutaneous gas is identified at the level of the lateral knee. D/ / 08/17/2018 22:54:43 Jillian Ram MD / manuel Interpreting Provider: Jillian Ram MD Knee CT 08/18/18 08:33 IMPRESSION: 1. A few foci of superficial soft tissue air in the lateral soft tissues of the knee with question of a and enveloping collection measuring about 6.6 x 2.6 cm in cross-section. Findings are suspicious for abscess but evaluation is limited by lack of IV contrast. 2. These foci of air far removed from the superficial and deep fascia and would not be typical for necrotizing fasciitis. 3. Generalized soft tissue swelling could be vascular in nature but could also represent cellulitis. D/ / Mike Mendoza / Mike Mendoza Interpreting Provider: Mike Mendoza - Attending Attestation I saw evaluated and examined this patient and my medical decision-making was reviewed with the Resident Physician, Kriss Harp. I agree with the documented findings, disposition and treatment plan as described except to any changes set forth below. We independently had [id number]-[id number] contact with the patient. Patient is lying down in bed. His erythema over her right leg has improved. She does continue to have pain. No fever or chills reported overnight. On exam, patient is awake and alert. Mild distress. Morbidly obese. Heart sounds are normal. Decreased breath sounds at bases. Patient has bilateral lymphedema with stasis dermatitis changes greater on the right. Right foot is bandaged. Erythema has improved within the margins of markings placed yesterday. Acute Right leg cellulitis: Continue IV antibiotics. Chest x-ray of the leg showed some subcutaneous gas needed the right knee. CT ordered which showed soft tissue air in the left lateral soft tissues of the knee with possible enveloping collection measuring 6.6 x 2.6 cm concerning for abscess. Podiatry and orthopedics have been consulted. We will follow recommendations. History of deep vein thrombosis: Continue Xarelto. Diabetes mellitus type 2: Blood sugars are improving. We will continue diabetic diet and sliding scale insulin along with Levemir. Essential hypertension: Continue Cardizem low and losartan. Blood pressure is well controlled. Moderate risk for complications. <Kriss Harp Izaiah - Last Filed: 08/18/18 10:26> (2) Left knee pain Qualifiers: Chronicity: acute Qualified Code(s): M25.562 - Pain in left knee (4) DVT (deep venous thrombosis) Qualifiers: DVT location: lower extremity Affected thrombotic vein of extremity: uns pecified vein of extremity Chronicity: chronic Laterality: bilateral Qualified Code(s): I82.503 - Chronic embolism and thrombosis of unspecified deep veins of lower extremity, bilateral (5) Diabetes Qualifiers: Diabetes mellitus type: type 2 Diabetes mellitus alf insulin use: with alf use Diabetes mellitus complication status: with hyperglycemia Qualified Code(s): E11.65 - Type 2 diabetes mellitus with hyperglycemia; Z79.4 - alf (current) use of insulin (6) Hypertension Qualifiers: Hypertension type: essential hypertension Qualified Code(s): I10 - Essential (primary) hypertension (8) Venous stasis dermatitis Qualifiers: Laterality: bilateral Qualified Code(s): I87.2 - Venous insufficiency (chronic) (peripheral) <Fahad Tellez - Last Filed: 08/18/18 14:30> (3) Venous stasis dermatitis Qualifiers: Laterality: bilateral Qualified Code(s): I87.2 - Venous insufficiency (chronic) (peripheral) (4) Diabetes Qualifiers: Diabetes mellitus type: type 2 Diabetes mellitus terminal carman insulin use: with alf use Diabetes mellitus complication status: with hyperglycemia Qualified Code(s): E11.65 - Type 2 diabetes mellitus with hyperglycemia; Z79.4 - bed bug exterminator (current) use of insulin (5) DVT (deep venous thrombosis) Qualifiers: DVT location: lower extremity Affected thrombotic vein of extremity: unspecified vein of extremity Chronicity: chronic Laterality: bilateral Qu alified Code(s): I82.503 - Chronic embolism and thrombosis of unspecified deep veins of lower extremity, bilateral (6) Hypertension Qualifiers: Hypertension type: essential hypertension Qualified Code(s): I10 - Essential (primary) hypertension (8) Left knee pain Qualifiers: Chronicity: acute Qualified Code(s): M25.562 - Pain in left knee
--- NOTE | 2018-08-18 10:46 | Podiatry Consult Note ---
Date of Encounter: 08/18/18 Time of Encounter: 10:00 Assessment and Plan (1) Cellulitis Current visit: Yes Status: Chronic continue IV antibiotics. f/u wound culture. get ID to re-evaluate Monday. CT scan findings reviewed. patient has chronic lymphedema which collects fluid in her legs. she is improving on antibiotics for now would monitor on the anti biotics. Qualifiers: Site of cellulitis: extremity Site of cellulitis of extremity: lower extremity Laterality: right Qualified Code(s): L03.115 - Cellulitis of right lower limb (2) Lymphedema in adult patient Current visit: Yes Status: Chronic educated on elevation and compression. elevate legs in bed. (3) Chronic ulcer of right calf with fat layer exposed Current visit: Yes Status: Acute discussed condition. excisional debridement using a curet and sharp instrumentation used into subcutaneous tissue to remove fibrotic tissue until there was a granular base. adequate hemostasis present. apply wound vac with black foam 125 mm Hg. History of Present Illness HPI: Ms. Chiang is a 48 year old female with lymphedema with previous hematoma of the leg and has been following in wound care. She has been using a wound vac at home. She says on she fell asleep with her legs down in the chair at home. She woke up with very swollen legs and says they felt numb. She says She then fell later when she tried to walk. She says her legs gradually turned more red so she came to the hospital and was admitted with cellulitis going into the thigh. She says they just completed a CT scan. She says just with a day of IV antibiotics her leg looks significantly better. She does report experiencing a fever at the time she was admitted. Past Med Surg Social Fam HX - Past Medical History Medical history: DVT, diabetes, GERD, hyperlipidemia, hypertension Additional medical history: Sleep apnea, Lymphedema, DM neuropathy, Cellulitis, Psychiatric history: anxiety, depression - Past Surgical History Surgical History: appendectomy - Social History Smoking Status: Former smoker Smokeless Tobacco Status: No Alcohol use: none Drug use: none - Family History Mother Family Member Ethnicity: Non- Living Status: Hx Family Cardiac Disorders: Yes Hx Family Respiratory Disorders: No Hx Family Cancer: No Hx Family GI Disorders: No Hx Family Endocrine Disorder: No Hx Family Neuromuscular Disorders: No Hx Family Neurologic Disorders: No Hx Family HEENT Disorders: No Hx Family Autoimmune Disorders: No Father Adopted: No Living Status: Hx Family Cardiac Disorders: Yes Hx Family Respiratory Disorders: Yes Hx Family Cancer: No Hx Family GI Disorders: No Hx Family Endocrine Disorder: Yes Hx Family Neuromuscular Disorders: No Hx Family Neurologic Disorders: No Hx Family HEENT Disorders: No Hx Family Autoimmune Disorders: No Medications and Allergies Diltiazem CD (24hr) [Cardizem CD] 240 mg PO BID 08/11/15 [History] hydrOXYzine pamoate [HydrOXYzine Pamoate] 25 - 50 mg PO Q6H PRN 08/11/15 [History] Ferrous Sulfate 325 mg PO BIDWM 03/22/17 [History] Furosemide [Lasix] 40 mg PO BID 03/22/17 [History] Insulin Glargine,Hum.rec.anlog [Toujeo Solostar] 65 unit SQ BID 03/22/17 [Histor y] Melatonin 5 mg PO HS 03/22/17 [History] Methocarbamol [Robaxin] 750 mg PO HS 03/22/17 [History] Dulaglutide [Trulicity] 0.75 mg SQ QWEEK 03/21/18 [History] Montelukast [Singulair] 10 mg PO HS 03/21/18 [History] Oxybutynin [Ditropan] 5 mg PO BID 03/21/18 [History] Rivaroxaban [Xarelto] 10 mg PO DAILY #30 tablet 03/21/18 [Rx] Atorvastatin [Lipitor] 40 mg PO HS 07/02/18 [History] FLUoxetine HCl [Prozac] 40 mg PO DAILY 07/02/18 [History] Insulin LISPRO [HumaLOG] 50 units SQ TIDWM 07/02/18 [History] Losartan Potassium [Cozaar] 50 mg PO DAILY 07/02/18 [History] Omeprazole [PriLOSEC] 40 mg PO DAILY 07/02/18 [History] Promethazine [Phenergan] 25 mg PO Q8H PRN 07/02/18 [History] Acetaminophen [Tylenol] 650 mg PO Q6HR PRN tablet 07/09/18 [Rx] DiphenhydraMINE [Benadryl] 25 mg PO Q6HR PRN capsule 07/09/18 [Rx] Irbesartan [Avapro] 150 mg PO 08/17/18 [History] Metformin HCl 1,000 mg PO BID 08/17/18 [History] Nabumetone [Relafen] 500 mg PO 08/17/18 [History] Oxycodone HCl 15 mg PO BID 08/17/18 [History] Rosuvastatin Calcium 20 mg PO 08/17/18 [History] Allergy/AdvReac Type Severity Reaction Status Date / Time Penicillins Allergy Intermediate Rash Verified 03/21/18 13:13 pioglitazone [From Actos] Allergy Intermediate See Verified 03/21/18 13:13 Comments sitagliptin [From Januvia] Allergy Intermediate See Verified 03/21/18 13:13 Comments Sulfa (Sulfonamide Allergy Intermediate Hives Verified 03/21/18 13:13 Antibiotics) nabumetone Allergy Muscle Pain Verified 03/21/18 13:13 sulfamethoxazole Allergy Rash Verified 03/21/18 13:13 [From Bactrim] trimethoprim [From Bactrim] Allergy Rash Verified 03/21/18 13:13 All Systems Reviewed: The remainder of the systems were reviewed and are negative - Constitutional Constitutional: fever(s) - Cardiovascular Cardiovascular: no chest pain, no dyspnea - Respiratory Respiratory: no cough, no wheezing - Musculoskeletal Musculoskeletal: muscle weakness, numbness Physical Exam - Constitutional Vitals: Temp Pulse Resp BP Pulse Ox 98.4 F 75 16 118/67 95 08/18/18 07:55 08/18/18 07:55 08/18/18 07:55 08/18/18 07:55 08/18/18 07:55 Exam: obese female in no acute distress right leg warm to touch. lymphedema with indurated skin. [id number]. erythema of the leg which has receded from the marking on her thigh. moderate serous drainage. fibrogranular wound base. sensation intact to touch. no tenderness with compression over the lateral compartment or knee. Results - Labs Result Diagrams: 08/18/18 02:34 08/18/18 02:34 Labs: Abnormal lab results RBC 3.33 M/mcL (3.82-4.97) L 08/18/18 02:34 Hgb 9.8 g/dL (11.5-15.4) L D 08/18/18 02:34 Hct 30.6 % (35.3-44.9) L 08/18/18 02:34 RDW 15.2 % (11.5-14.5) H 08/18/18 02:34 ESR 55 mm/hr (0-15) H 08/18/18 08:38 Sodium 135 mEq/L (136-145) L 08/18/18 02:34 Glucose 261 mg/dL (70-105) H 08/18/18 02:34 POC Glucose 236 mg/dL (70-99) H 08/18/18 07:54 Hemoglobin A1c 6.6 % (-5.6) H 08/17/18 12:14 H & H 08/17/18 08/18/18 Range/Units 12:14 02:34 Hgb 11.6 9.8 L D (11.5-15.4) g/dL Hct 36.4 30.6 L (35.3-44.9) % All other labs normal. Consult Discharge Plan - Plan Referrals: Delfino Valdes DO [Primary Care Provider] -
[2018-08-18] MEDS: Ondansetron 4 MG/2 ML VIAL IVP PRN (15:51)
[2018-08-18] MEDS: hydrOXYzine pamoate 25 MG CAPSULE PO PRN (20:40)
[2018-08-18] MEDS: *HR* OxyCODONE Immed Rel 15 MG TABLET PO SCH (20:40)
[2018-08-18] MEDS: Melatonin 3 MG TABLET PO SCH (20:41)
[2018-08-19] MEDS ORDERED: Water for inj. (sterile) 20 ML 20 ML IV ONE (03:40)
[2018-08-19] MEDS: Meropenem 500 MG in Water for inj. (sterile) 20 ML 5 ML IVP SCH ×3 (03:51→20:23)
[2018-08-19] MEDS: Insulin LISPRO 300 UNITS/3 ML VIAL SQ SCH ×7 (08:48→20:43)
[2018-08-19] MEDS: Diltiazem CD (24hr) 240 MG CAPSULE PO SCH (08:49)
[2018-08-19] MEDS: Furosemide 20 MG TABLET PO SCH ×2 (08:49→17:36)
[2018-08-19] MEDS: FLUoxetine 20 MG CAPSULE PO SCH (08:50)
[2018-08-19] MEDS: *HR* Rivaroxaban 10 MG TABLET PO SCH (08:50)
[2018-08-19] MEDS: Pregabalin 75 MG CAPSULE PO SCH ×3 (08:50→20:19)
[2018-08-19] MEDS: *HR* OxyCODONE Immed Rel 15 MG TABLET PO SCH ×2 (08:50→20:22)
[2018-08-19] MEDS: Lactobacillus 1 EACH CAP.SPRINK PO SCH ×2 (08:50→20:39)
[2018-08-19] MEDS: hydrOXYzine pamoate 25 MG CAPSULE PO PRN (09:05)
[2018-08-19] MEDS: Insulin DETEMIR 100 UNIT/ML X5UNITS SQ SCH ×2 (09:05→20:25)
--- NOTE | 2018-08-19 10:41 | Internal Med Progress Note ---
<Kriss Harp E - Last Filed: 08/19/18 10:38> Hospitalist Progress Note - Encounter Date of Encounter: 08/19/18 - Subjective Interval History: Ms. Chiang was seen at bedside this morining. No acute distress. She says she is still having pain in her right medial thigh and knee area. She states she feels liek she must ahve landed partially on her shoulder when she fell becuase she ahs soem stiffness in her shoulder but no pinpoint pain. - Exam Vitals: Temp Pulse Resp BP Pulse Ox 98 F 70 16 118/66 96 08/19/18 08:13 08/19/18 08:13 08/19/18 08:13 08/19/18 08:13 08/19/18 08:13 Exam: General: AAOx3, answers questions appropriately Heart: RRR, no murmurs, rubs, or gallops Lungs: CTAB, no wheezing, rhonchi Extremities: both lower extremtiies show signs of venous stasis changes. Left knee is slightly painful to palpation with some slight swelling ad swelling of the left foot which patient states is always there. Right leg is painful to palpation around the knee and laterally to the ankle. Wound on lateral leg is draining brownish yellow fluid into cielo wound vac. Crepitus no longer appricated on lateral aspect of right knee. Erythema from the knee that spreads down the right dorsal foot is noted. Left shoulder full range of motion without pain illicited, no pinpoint tenderness, good muscular strength Skin: warm dry and intact other than stated above - Assessment and Plan (1) Cellulitis of leg, right Current Visit: Yes Status: Acute Assessment and Plan: Started on meropenem and vancomycin Wound cultures pending Blood cultures pending Mat Linker consulted as he has been taking care fo the right leg ulcer XR right knee showed some subcutaneous gas pockets, CT right leg showed some subcutaneous gas pockets Orthopedics consulted appreciate recommendations Podiatry restarted wound vac to right calf wound (2) Left knee pain Current Visit: Yes Status: Acute Assessment and Plan: due to degenerative disease No effusions noted on XR PT/OT and pain medication (3) SIRS (systemic inflammatory response syndrome) Current Visit: Yes Status: Acute Assessment and Plan: from celulitis noted above Monitor WBC count (4) DVT (deep venous thrombosis) Current Visit: No Status: Chronic Assessment and Plan: continue xerelto for chronic DVT (5) Diabetes Current Visit: No Status: Chronic Assessment and Plan: SSI + levamir (6) Hypertension Current Visit: No Status: Chronic Assessment and Plan: continue home medications (7) Lymphedema in adult patient Current Visit: Yes Status: Chronic Assessment and Plan: compression and leg elevation (8) Venous stasis dermatitis Current Visit: No Status: Chronic Assessment and Plan: noted on both lower extremities (9) Morbid obesity Current Visit: No Status: Chronic Assessment and Plan: consult to nutrition due to excess caloric intake DVT Prophylaxis: currently on xerelto for chronic DVT of lower extremity - Time Spent with Patient Total time spent is greater than 50% in coordination of care (as documented) at patient's floor/unit and/or counseling patient: Plan of Care Discussed with: patient Internal Medicine: Result - Labs CBC & Chem 7: 08/18/18 02:34 08/18/18 02:34 Consult Discharge Plan - Plan Referrals: Delfino Valdes DO [Primary Care Provider] - <Fahad Tellez - Last Filed: 08/19/18 13:46> Hospitalist Progress Note - Encounter Date of Encounter: 08/19/18 Time of Encounter: 13:40 - Exam Vitals: Temp Pulse Resp BP Pulse Ox 97.6 F 64 18 109/65 94 08/19/18 11:41 08/19/18 11:41 08/19/18 11:41 08/19/18 11:41 08/19/18 11:41 - Assessment and Plan (1) Lymphedema in adult patient Current Visit: Yes Status: Chronic (2) Morbid obesity Current Visit: No Status: Chronic (3) Venous stasis dermatitis Current Visit: No Status: Chronic (4) Diabetes Current Visit: No Status: Chronic (5) DVT (deep venous thrombosis) Current Visit: No Status: Chronic (6) Hypertension Current Visit: No Status: Chronic (7) Cellulitis of leg, right Current Visit: Yes Status: Acute (8) Left knee pain Current Visit: Yes Status: Acute (9) SIRS (systemic inflammatory response syndrome) Current Visit: Yes Status: Acute - Time Spent with Patient Total time spent is greater than 50% in coordination of care (as documented) at patient's floor/unit and/or counseling patient: Internal Medicine: Result - Labs CBC & Chem 7: 08/18/18 02:34 08/18/18 02:34 - Attending Attestation I saw evaluated and examined this patient and my medical decision-making was reviewed with the Resident Physician, Kriss Harp. I agree with the documented findings, disposition and treatment plan as described except to any changes set forth below. We independently had [id number] contact with the patient. Patient is awake and alert. Sitting up in bed. Erythema has significantly improved in right lower extremity. She does complain of some pain in her right inguinal region. No fevers or chills reported overnight. Tolerating diet well. No diarrhea. On exam, patient is awake and alert. Morbidly obese. Right lower extremity bandaged with wound VAC in place. Acute right lower extremity cellulitis: Podiatry helping manage recent wound. Wound VAC has been placed. Wound culture growing gram-negative rods concerning for Pseudomonas. Patient is receiving meropenem and vancomycin. If no other bacterial process tomorrow, will stop vancomycin. Consult infectious disease. We will follow recommendations. History of deep vein thrombosis: Continue Xarelto. Diabetes mellitus type 2: Blood sugars are still elevated we will increase his Levemir dosage. Essential hypertension: well controlled. Continue current medications. Moderate risk for complications. <Kriss Harp E - Last Filed: 08/19/18 10:38> (2) Left knee pain Qualifiers: Chronicity: acute Qualified Code(s): M25.562 - Pain in left knee (4) DVT (deep venous thrombosis) Qualifiers: DVT location: lower extremity Affected thrombotic vein of extremity: unspecified vein of extremity Chronicity: chronic Laterality: bilateral Qualified Code(s): I82.503 - Chronic embolism and thrombosis of unspecified deep veins of lower extremity, bilateral (5) Diabetes Qualifiers: Diabetes mellitus type: type 2 Diabetes mellitus oysterman insulin use: with oysterman use Diabetes mellitus complication status: with hyperglycemia Qualified Code(s): E11.65 - Type 2 diabetes mellitus with hyperglycemia; Z79.4 - custodial (current) use of insulin (6) Hypertension Qualifiers: Hypertension type: essential hypertension Qualified Code(s): I10 - Essential (primary) hypertension (8) Venous stasis dermatitis Qualifiers: Laterality: bilateral Qualified Code(s): I87.2 - Venous insufficiency (chronic) (peripheral) <Fahad Tellez - Last Filed: 08/19/18 13:46> (3) Venous stasis dermatitis Qualifiers: Laterality: bilateral Qualified Code(s): I87.2 - Venous insufficiency (chronic) (peripheral) (4) Diabetes Qualifiers: Diabetes mellitus type: type 2 Diabetes mellitus retirement insulin use: with oysterman use Diabetes mellitus complication status: with hyperglycemia Qualified Code(s): E11.65 - Type 2 diabetes mellitus with hyperglycemia; Z79.4 - custodial (current) use of insulin (5) DVT (deep venous thrombosis) Qualifiers: DVT location: lower extremity Affected thrombotic vein of extremity: unspecified vein of extremity Chronicity: chronic Laterality: bilateral Qualified Code(s): I82.503 - Chronic embolism and thrombosis of unspecified deep veins of lower extremity, bilateral (6) Hypertension Qualifiers: Hypertension type: essential hypertension Qualified Code(s): I10 - Essential (primary) hypertension (8) Left knee pain Qualifiers: Chronicity: acute Qualified Code(s): M25.562 - Pain in left knee
--- NOTE | 2018-08-19 12:57 | Podiatry Progress Note ---
Date of Encounter: 08/19/18 Time of Encounter: 10:15 - Assessment and Plan (1) Cellulitis Current Visit: Yes Status: Chronic continue IV antibiotics. f/u wound culture. get ID to re-evaluate Monday. CT scan findings reviewed with patient. patient has chronic lymphedema which collects fluid in her legs. she is improving on antibiotics for now would monit or on the antibiotics if fails to improve or symptoms worsen may repeat imaging with contrast but would hold off for now. soft tissue area is in area of wound which undermines on the lateral leg. Qualifiers: Site of cellulitis: extremity Site of cellulitis of extremity: lower extremity Laterality: right Qualified Code(s): L03.115 - Cellulitis of right lower limb (2) Lymphedema in adult patient Current Visit: Yes Status: Chronic educated on elevation and compression. elevate legs in bed. (3) Chronic ulcer of right calf with fat layer exposed Current Visit: Yes Status: Acute c/w wound vac. Subjective Interval history: sitting up in bed. in no acute distress. Objective - Vital Signs Vital Signs: Vital Signs Temp Pulse Resp BP Pulse Ox 08/19/18 11:41 97.6 F 64 18 109/65 94 08/19/18 08:13 98 F 70 16 118/66 96 08/19/18 03:00 97.6 F 73 17 130/67 08/18/18 19:47 99.1 F 84 16 112/64 94 Intake and Output 08/19/18 08/19/18 08/19/18 00:59 07:59 15:59 Intake Total 360 / 360 Output Total 400 / 400 Balance -40 / -40 Intake: IV Fluids Merrem 500 MG In Water for inj. (sterile) 5 ML @ 100 mls/hr IVP Q8H RAJAT Rx#:[id number] Oral 360 / 360 Output: Urine 400 / 400 Wound Drainage Right Calf Other: Meal Breakfast Percent of Meal Consumed 100% # Voids Weight Blood Glucose* 251 Patient Weight 08/19/18 22:59 Weight 172.9 kg - Exam Exam: wound vac on and functioning at 125mm Hg continuous.erythema of the leg continues to improve. no pain with palpation over the lateral leg, pain with palpation medial distal calf. - Lab Result Diagrams: 08/18/18 02:34 08/18/18 02:34 Labs: Abnormal lab results RBC 3.33 M/mcL (3.82-4.97) L 08/18/18 02:34 Hgb 9.8 g/dL (11.5-15.4) L D 08/18/18 02:34 Hct 30.6 % (35.3-44.9) L 08/18/18 02:34 RDW 15.2 % (11.5-14.5) H 08/18/18 02:34 ESR 55 mm/hr (0-15) H 08/18/18 08:38 Sodium 135 mEq/L (136-145) L 08/18/18 02:34 Glucose 261 mg/dL (70-105) H 08/18/18 02:34 POC Glucose 126 mg/dL (70-99) H 08/18/18 12:21 Hemoglobin A1c 6.6 % (-5.6) H 08/17/18 12:14 C-Reactive Protein 255 mg/L (Less than 10) H 08/18/18 08:38 Vancomycin Trough 40 mcg/mL (5-10) H 08/19/18 00:12 Microbiology, Last 48 Hours 08/17/18 18:15 Wound Culture - Preliminary Right Leg Gram Negative [place] 08/17/18 12:37 Blood Culture - Preliminary Peripheral Venipuncture Culture is incubating and being continuously monitored for growth. Final report to follow. 08/17/18 12:14 Blood Culture - Preliminary Peripheral Venipuncture Culture is incubating and being continuously monitored for growth. Final report to follow. Consult Discharge Plan - Plan Referrals: Delfino Valdes DO [Primary Care Provider] -
[2018-08-19] MEDS: Melatonin 3 MG TABLET PO SCH (20:20)
[2018-08-20] MEDS: traMADol 50 MG TABLET PO PRN (02:59)
[2018-08-20] MEDS: Meropenem 500 MG in Water for inj. (sterile) 20 ML 5 ML IVP SCH ×2 (03:12→12:26)
[2018-08-20 05:57] LABS: Basophils % 0.4 %; Eosinophils # 0.3 K/mcL (0.0-0.6); Hematocrit 32.9 % (35.3-44.9); Hemoglobin 10.3 g/dL (11.5-15.4); Immature Granulocytes % 0.5 % (0-4); Lymphocytes # 1.1 K/mcL (0.6-4.6); Lymphocytes % 13.4 %; Mean Corpuscular HGB Conc 31.3 g/dL (31.6-35.5); Mean Corpuscular Hemoglobin 28.6 pg (28.0-33.3); Mean Corpuscular Volume 91.4 fL (83.0-100.0); Mean Platelet Volume 11.5 fL (9.4-12.4); Monocytes # 0.7 K/mcL (0.0-1.3); Monocytes % 8.3 %; Neutrophils # 6.3 K/mcL (1.6-8.9); Platelet Count 198 K/mcL (140-400); Red Cell Distribution Width 14.9 % (11.5-14.5); Segmented Neutrophils % 74.4 %
[2018-08-20 06:12] LABS: BUN/Creatinine Ratio 18 (6-26); Blood Urea Nitrogen 14 mg/dL (6-20); Calcium 8.9 mg/dL (8.6-10.3); Carbon Dioxide 27 mEq/L (23-29); Chloride 104 mEq/L (98-107); Glucose 186 mg/dL (70-105); Osmolality,Calculated 289 (280-300); Potassium 3.8 mEq/L (3.5-5.1); Sodium 137 mEq/L (136-145); Vancomycin,Random 26 mcg/mL; eGFR For Non-African Americans > 60 (> 60)
[2018-08-20] MEDS: *HR* OxyCODONE Immed Rel 15 MG TABLET PO SCH ×2 (08:35→21:43)
[2018-08-20] MEDS: Pregabalin 75 MG CAPSULE PO SCH ×3 (08:35→21:43)
[2018-08-20] MEDS: Lactobacillus 1 EACH CAP.SPRINK PO SCH ×2 (08:36→21:43)
[2018-08-20] MEDS: *HR* Rivaroxaban 10 MG TABLET PO SCH (08:36)
[2018-08-20] MEDS: Furosemide 20 MG TABLET PO SCH ×2 (08:36→17:16)
[2018-08-20] MEDS: Diltiazem CD (24hr) 240 MG CAPSULE PO SCH (08:36)
[2018-08-20] MEDS: FLUoxetine 20 MG CAPSULE PO SCH (08:36)
[2018-08-20] MEDS: Insulin DETEMIR 100 UNIT/ML X5UNITS SQ SCH ×2 (08:37→21:44)
[2018-08-20] MEDS: Insulin LISPRO 300 UNITS/3 ML VIAL SQ SCH ×7 (08:37→21:47)
[2018-08-20] MEDS: hydrOXYzine pamoate 25 MG CAPSULE PO PRN ×2 (08:52→21:43)
[2018-08-20] MEDS: Ondansetron 4 MG/2 ML VIAL IVP PRN (08:52)
--- NOTE | 2018-08-20 09:41 | Internal Med Progress Note ---
<BishopAntonellarolando - Last Filed: 08/20/18 11:07> Hospitalist Progress Note - Encounter Date of Encounter: 08/20/18 Time of Encounter: 09:38 - Subjective Interval History: Pt seen and examined at bedside this morning in NAD. Currently resting comfortably, reporting mild nausea. Additionally notes that right leg feels slightly better with decreased erythema, but notes tenderness to palpation. Additionally, wound vac is draining serous yellow fluid, but pt reports drainage is less than previously. Denies fevers, headaches, vision changes, SOB, chest pain, abdominal pain, fatigue, weakness. - Exam Vitals: Temp Pulse Resp BP Pulse Ox 98.0 F 75 15 129/82 96 08/20/18 07:35 08/20/18 07:35 08/20/18 07:35 08/20/18 07:35 08/20/18 07:35 Exam: GEN: AOx3; NAD; Resting comfortably in bed HEENT: Normocephalic, atrauamatic, EOMI CARDIO: RRR, no murmurs, rubs, gallups PULM: CTAB, no wheezes, rhonchi, rales ABD: Soft, non-tender, non-distended EXT: R LE: tender to palpation on anteromedial aspect of thigh; erythema that spreads from medial thigh to lower extremity; no crepitus appreciate; evidence of venous stasis dermatitis on b/l lower extremities; evidence of lymphedema on b/l lower extremities; wound vac to right lower extremity draining yellow serous fluid - Assessment and Plan (1) Cellulitis of leg, right Current Visit: Yes Status: Acute Assessment and Plan: Ms. Chiang is a 48 y/o F with PMHx significant for Right Leg Hematoma s/p I&D and excisional debridement (07/06/18), lower extremity lymphedema, Hx of DVTs on Xarelto who presents s/p fall due to left knee pain and right lower extremity erythema and swelling. Left XR: No acute Left Knee Fracture; Stable severe osteoarthritis with degenerative genu varus Venous Doppler: Negative for DVT Right Tibia/Fibular XR: No acute osseous abnormality of right tib and fib; suspected subcutaneous gas identified at level of lateral knee CT Right Knee Without Contrast: Few foci of superficial soft tissue air in the lateral soft tissues of knee - question of enveloping collection measuring 6.6 x 2.6cm - possibly abscess; foci of air far removed from supericial and deep fascia so unlikely necrotizing fasciitis; generalized soft tissue swelling - eit her vascular vs cellulitis Wound Culture Right Leg: Pseudomonas, Gram Negative Cruzito, Gram Positive Cocci Pt reports mild leg pain anteromedially and spreading to groin. Notes erythema is improving. PE: tenderness to palpation in right anteromedial leg, erythema, swelling PLAN: Cont Meropenem and D/c vancomycin CT R. Lower Extremity with contrast Blood cultures pending ID and orthopedics recommendations appreciated Per podiatry, continue IV antibiotics and cont wound vac (2) Chronic ulcer of right calf with fat layer exposed Current Visit: Yes Status: Acute Assessment and Plan: Currently followed by podiatry Continue with wound vac - draining serous yellow fluid (3) SIRS (systemic inflammatory response syndrome) Current Visit: Yes Status: Resolved Assessment and Plan: WBC = 8.4 today T = 98.0 HR = 75 RR = 15 Cont to monitor WBC count (4) Left knee pain Current Visit: Yes Status: Acute Assessment and Plan: XR negative for fracture - noted stable severe osteoarthritis Cont pain medication as needed (5) DVT (deep venous thrombosis) Current Visit: No Status: Chronic Assessment and Plan: LE Doppler negative for DVTs Cont Xarelto due to hx of chronic DVT (6) Diabetes Current Visit: No Status: Chronic Assessment and Plan: Cont medium dose sliding scale and Levemir (7) Hypertension Current Visit: No Status: Chronic Assessment and Plan: BP = 129/82 Cont Diltiazem, Lasix, Losartan (8) Lymphedema in adult patient Current Visit: Yes Status: Chronic Assessment and Plan: Cont compression and leg elevation (9) Venous stasis dermatitis Current Visit: No Status: Chronic Assessment and Plan: Noted on bilateral lower extremities (10) Morbid obesity Current Visit: No Status: Chronic DVT Prophylaxis: Hx of DVT on Xarelto - Time Spent with Patient Total time spent is greater than 50% in coordination of care (as documented) at patient's floor/unit and/or counseling patient: less than 15 minutes Plan of Care Discussed with: patient Internal Medicine: Result - Labs CBC & Chem 7: 08/20/18 05:29 08/20/18 05:29 Labs: Short CBC 08/20/18 Range/Units 05:29 WBC 8.4 (4.3-11.1) K/mcL Hgb 10.3 L (11.5-15.4) g/dL Hct 32.9 L (35.3-44.9) % Plt Count 198 (140-400) K/mcL Neutrophils # 6.3 (1.6-8.9) K/mcL BMP 08/20/18 05:29 Sodium 137 Potassium 3.8 Chloride 104 Carbon Dioxide 27 BUN 14 Creatinine 0.79 Glucose 186 H Calcium 8.9 Consult Discharge Plan - Plan Referrals: Delfino Valdes DO [Primary Care Provider] - <Fahad Tellez - Last Filed: 08/20/18 11:39> Hospitalist Progress Note - Encounter Date of Encounter: 08/20/18 - Exam Vitals: Temp Pulse Resp BP Pulse Ox 98.4 F 67 18 121/71 97 08/20/18 10:18 08/20/18 10:18 08/20/18 10:18 08/20/18 10:18 08/20/18 10:18 - Assessment and Plan (1) Cellulitis of leg, right Current Visit: Yes Status: Acute (2) Lymphedema in adult patient Current Visit: Yes Status: Chronic (3) Morbid obesity Current Visit: No Status: Chronic (4) Venous stasis dermatitis Current Visit: No Status: Chronic (5) Diabetes Current Visit: No Status: Chronic (6) DVT (deep venous thrombosis) Current Visit: No Status: Chronic (7) Hypertension Current Visit: No Status: Chronic (8) Left knee pain Current Visit: Yes Status: Acute (9) SIRS (systemic inflammatory response syndrome) Current Visit: Yes Status: Resolved - Time Spent with Patient Total time spent is greater than 50% in coordination of care (as documented) at patient's floor/unit and/or counseling patient: Internal Medicine: Result - Labs CBC & Chem 7: 08/20/18 05:29 08/20/18 05:29 Labs: Short CBC 08/20/18 Range/Units 05:29 WBC 8.4 (4.3-11.1) K/mcL Hgb 10.3 L (11.5-15.4) g/dL Hct 32.9 L (35.3-44.9) % Plt Count 198 (140-400) K/mcL Neutrophils # 6.3 (1.6-8.9) K/mcL BMP 08/20/18 05:29 Sodium 137 Potassium 3.8 Chloride 104 Carbon Dioxide 27 BUN 14 Creatinine 0.79 Glucose 186 H Calcium 8.9 - Attending Attestation I saw evaluated and examined this patient and my medical decision-making was reviewed with the Resident Physician, Leeann Alas. I agree with the documented findings, disposition and treatment plan as described except to any changes set forth below. We independently had [id number] contact with the patient. Patient is awake and alert. Complaints of continued pain in her right groin which is worse today. No Fever reported but patient did feel feverish last nigh t. No nausea or vomiting. On exam, patient is awake and alert. Morbidly obese. Erythema more prominent in the right upper thigh and groin region today. Heart sounds are normal. Breath sounds are normal. Right lower extremity bandaged with wound VAC in place. Acute right lower extremity cellulitis: Continue current antibiotics. Given that patient is having worsening pain higher up in the right leg and her groin, we will get CT scan of the leg to evaluate for any other abscess. Follow po diatry recommendations. History of deep vein thrombosis: Continue Xarelto. Diabetes mellitus type 2: Blood sugars have improved. We will continue to adjust insulin regimen accordingly. Diabetic diet. Essential hypertension: well controlled. Continue current medications. Moderate risk for complications. <Leeann Alas - Last Filed: 08/20/18 11:07> (4) Left knee pain Qualifiers: Chronicity: acute Qualified Code(s): M25.562 - Pain in left knee (5) DVT (deep venous thrombosis) Qualifiers: DVT location: lower extremity Affected thrombotic vein of extremity: unspecified vein of extremity Chronicity: chronic Laterality: bilateral Qualified Code(s): I82.503 - Chronic embolism and thrombosis of unspecified deep veins of lower extremity, bilateral (6) Diabetes Qualifiers: Diabetes mellitus type: type 2 Diabetes mellitus detention insulin use: with terminal operations manager use Diabetes mellitus complication status: with hyperglycemia Qualified Code(s): E11.65 - Type 2 diabetes mellitus with hyperglycemia; Z79.4 - intermediate (current) use of 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 <Fahad Tellez - Last Filed: 08/20/18 11:39> (4) Venous stasis dermatitis Qualifiers: Laterality: bilateral Qualified Code(s): I87.2 - Venous insufficiency (chronic) (peripheral) (5) Diabetes Qualifiers: Diabetes mellitus type: type 2 Diabetes mellitus detention insulin use: with detention use Diabetes mellitus complication status: with hyperglycemia Qualif ied Code(s): E11.65 - Type 2 diabetes mellitus with hyperglycemia; Z79.4 - intermediate (current) use of insulin (6) DVT (deep venous thrombosis) Qualifiers: DVT location: lower extremity Affected thrombotic vein of extremity: unspeci fied vein of extremity Chronicity: chronic Laterality: bilateral Qualified Code(s): I82.503 - Chronic embolism and thrombosis of unspecified deep veins of lower extremity, bilateral (7) Hypertension Qualifiers: Hypertension type: essential hypertension Qualified Code(s): I10 - Essential (primary) hypertension (8) Left knee pain Qualifiers: Chronicity: acute Qualified Code(s): M25.562 - Pain in left knee
[2018-08-20] MEDS ORDERED: Isovue-370 500 ML INFUS..BTL IV ONE (11:04)
--- NOTE | 2018-08-20 12:10 | Podiatry Progress Note ---
Date of Encounter: 08/20/18 Time of Encounter: 11:30 - Assessment and Plan (1) Cellulitis of leg, right Current Visit: Yes Status: Acute RLE lymphedema with erythema noted. Weeping serous fluid. Wound cultures to right lower extremity positive for pseudomonas, gram-negative rods, and gram-positive cocci ID consulted, continue IV antibiotics per their recommendations. (2) Chronic ulcer of right calf with fat layer exposed Current Visit: Yes Status: Acute Wound VAC changed. Cleansed with 0.9 normal saline Moderate amount of serosanguineous fluid noted. Weeping noted to right lower extremity. Wound bed is red and beefy. Fibrous tissue noted throughout. VAC sponge cut to fit wound. Tracked to anterior aspect of RLE. Good seal noted about 125 mmHg. Covered with Kerlix. To be changed Monday. Will need home care to follow up with when discharged (3) Lymphedema in adult patient Current Visit: Yes Status: Chronic Discussed keeping leg elevated and use of compression to help lymphedema. Subjective Interval history: Patient awake in bed. Denies any overnight events. Oriented 3. Objective - Vital Signs Vital Signs: Vital Signs Temp Pulse Resp BP Pulse Ox 08/20/18 10:18 98.4 F 67 18 121/71 97 08/20/18 07:35 98.0 F 75 15 129/82 96 08/20/18 04:00 97.7 F 72 16 148/89 94 08/19/18 19:40 98.0 F 67 15 121/74 95 08/19/18 17:26 98.4 F 67 18 121/71 97 Intake and Output 08/19/18 08/20/18 08/20/18 23:59 07:59 15:59 Intake Total 5 / 5 5 / 5 240 / 240 Output Total 470 / 470 500 / 500 Balance -465 / -465 -495 / -495 240 / 240 Intake: IV Fluids 5 / 5 5 / 5 Merrem 500 MG In Water for inj. 5 / 5 5 / 5 (sterile) 5 ML @ 100 mls/hr IVP Q8H RAJAT Rx#:[id number] Oral 0 / 0 0 / 0 240 / 240 Output: Urine 400 / 400 500 / 500 Wound Drainage 70 / 70 0 / 0 Right Calf 70 / 70 0 / 0 Right Lateral Calf 0 / 0 Other: Meal Breakfast Percent of Meal Consumed 95% # Bowel Movements 0 Weight 172.8 kg Blood Glucose* 184 187 196 Patient Weight 08/20/18 23:59 Weight 172.8 kg - Exam Exam: Constitiutional: Alert and oriented x 3. Vascular: palpable DP/PT bilaterally, CFT <3 sec to all digits, warm to warm from tibia to toes bilaterally, lymphedema noted bilaterally with weeping Neurologic: sensation to touch, normal plantar response, Normal position sense dorsiflexion/plantar flexion Dermatologic: Wound VAC to right lower extremity intact suction at 125 mmHg Musculoskeletal: 3/5 muscle strength and normal tone bilaterally. - Lab Result Diagrams: 08/20/18 05:29 08/20/18 05:29 Labs: Abnormal lab results RBC 3.60 M/mcL (3.82-4.97) L 08/20/18 05:29 Hgb 10.3 g/dL (11.5-15.4) L 08/20/18 05:29 Hct 32.9 % (35.3-44.9) L 08/20/18 05: MCHC 31.3 g/dL (31.6-35.5) L 08/20/18 05:29 RDW 14.9 % (11.5-14.5) H 08/20/18 05:29 ESR 55 mm/hr (0-15) H 08/18/18 08:38 Glucose 186 mg/dL (70-105) H 08/20/18 05:29 POC Glucose 196 mg/dL (70-99) H 08/20/18 11:22 Hemoglobin A1c 6.6 % (-5.6) H 08/17/18 12:14 C-Reactive Protein 255 mg/L (Less than 10) H 08/18/18 08:38 Vancomycin Trough 40 mcg/mL (5-10) H 08/19/18 00:12 Microbiology, Last 48 Hours 08/17/18 18:15 Anaerobic Culture - Preliminary Right Leg At this time, no anaerobic growth is present. The culture will be finalized after 5 days of incubation. 08/17/18 18:15 Wound Culture - Preliminary Right Leg Pseudomonas aeruginosa Gram Negative Cruzito#2 Gram Positive Cocci Consult Discharge Plan - Plan Additional Instructions: Follow up in wound care center with Dr. Napier. Please make appointment prior to discharge. Referrals: Lucio,Delfino E, DO [Primary Care Provider] - Wild Napier DPM [Partnered Physician] -
[2018-08-20] MEDS ORDERED: Vancomycin 1 EACH in 0.9 % Sodium Chloride 250 ML IVPB SCH (14:00)
--- NOTE | 2018-08-20 14:29 | Infectious Disease Consult ---
Date of Encounter: 08/20/18 Time of Encounter: 11:02 Assessment and Plan (1) Cellulitis of leg, right Status: Acute Assessment and plan: - Septic on presentation with heart rate of 103 as well as leukocytosis of 13.1. Lactic acid of 2.2 - Suspected source: Cellulitis of right leg - Suspected organism: Multiple as below - Sepsis has currently resolved with resolution of leukocytosis to 8.4. Vital signs within normal limits - Suspected cellulitis of right lower shortly does appear to be receding with IV antibiotics. - Potentially complicated by right lower extremity skin barrier disruption as well as diabetes and chronic severe lymphadema - Podiatry is following with wound VAC in place for previous injury - ESR and CRP on 08/18/18 and 55 and 255 respectively - Previous wound cultures do show multidrug-resistant Acinetobacter - Blood culture 2 on 08/17/18 no growth - Right leg anaerobic culture on 08/17/18 no growth preliminary - Wound culture on 08/17/18 growing - Organism #1 Pseudomonas aeruginosa sensitive to cefepime, ceftazidime, gen tamicin, Zosyn, tobramycin. - Organism #2: Gram-negative cruzito - Organism #3: Gram-positive cocci - Tibia x-ray on 08/17 status 18 does show evidence of soft tissue air - Knee CT on 08/18/18 also demonstrated soft tissue air measuring 6.6 x 2.6 cm suspicious for abscess formation but did not demonstrate penetration to the fascia and is not typical for necrotizing fasciitis. - Chest x-ray does not show signs of consolidation. Plan - D/C meropenem - Start Cefepime 2 grams IV q8 hours - Start flagyl 500mg po TID - Await CT RLE to finalize - Restart vancomycin day #4; goal vancomycin trough 10-15; will ask pharmacy to help with dosing pt BMI 70 - Monitor labs and for drug toxicity - Continue to monitor culture sensitivities and de-escalate as able (2) Venous stasis dermatitis Status: Chronic Assessment and plan: - Chronic, bilateral - Podiatry following Qualifiers: Laterality: bilateral Qualified Code(s): I87.2 - Venous insufficiency (chronic) (peripheral) (3) Morbid obesity Status: Chronic (4) Diabetes Status: Chronic Assessment and plan: - We will controlled with most recent A1c of 6.6% on presentation - Blood sugars are elevated however this may be secondary to infection - Further management per primary team Qualifiers: Diabetes mellitus type: type 2 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 Chiang is a 48 year old female who presented to the emergency room on 08/17/18 after a fall at home due to left knee pain as well as worsening right lower extremity erythema. Infectious disease was consulted on 08/20/18 for concerns for multidrug resistant Acinetobacter cultures and previous leg wound as well as cellulitis. Patient has a past medical history of hypertension, hyperlipidemia, DVT on Xarelto, type 2 diabetes with peripheral neuropathy, morbid obesity with BMI of 69, GERD, lymphedema, chronic venous stasis. She states the erythema has been progressively worsening for approximately the past week and is also noticed some thin yellow fluid on her bandages. She did experience a fall in June 2018 which resulted in a right leg hematoma status post I&D as well as excisional debridement of the muscle on 07/06/18. She currently has a wound VAC in place. She does state that she has chronic lymphedema and swelling of bilateral lower extremity with associated leg pains. She does have chronic erythema of bilateral legs but has noticed the right leg extending up to mid thigh. She has noticed any complications with her wound VAC. On presentation to the emergency room, vital signs were unremarkable. Labs on presentation were significant for leukocytosis of 13.1 with neutrophil predominance. Hemoglobin A1c of 6.6%. Glucose at presentation was 273. Knee x-ray was obtained and showed no acute fracture however did show some stable severe osteoarthritis with degenerative genu varus. Doppler was obtained and sh owed no evidence of DVT. Chest x-ray on 08/17 showed findings of pulmonary edema. Tibial x-ray showed no acute osseous abdominal and but did see suspected subcutaneous gas for which a CT was ordered. CT on 08/18 showed new foci of superficial soft tissue air in the lateral soft tissues of the knee measuring 6.6 x 2.6 cm. These findings were suspicious for an abscess. It was noted that the air foci was far removed from the fascia would not be typical for necrotizing fasciitis. Podiatry was consulted at that time he recommended continued IV antibiotics. She was started on meropenem and vancomycin. On interview today, patient states that she feels mildly improved. Her erythema has decreased noticeably but she is still experiencing some bilateral lower extremity pain. She has still noticed some thin yellow discharge on her wrappings. Denies any symptoms of fevers, chills while in the hospital but does feel that she had subjective fevers at home. Denies nausea, vomiting, chest klaudia n, shortness of breath. Lower extremity swelling is chronic and difficult to determine if in acute exacerbation. She does have a rash allergy to penicillin. As well as a rash allergy to sulfa antibiotics. CC: Fahad Tellez MD Past Med Surg Social Fam HX - Past Medical History Medical history: DVT, diabetes, GERD, hyperlipidemia, hypertension Additional medical history: Sleep apnea, Lymphedema, DM neuropathy, Cellulitis, Psychiatric history: anxiety, depression - Past Surgical History Surgical History: appendectomy - Social History Smoking Status: Former smoker Smokeless Tobacco Status: No Alcohol use: none Drug use: none - Family History Father Adopted: No Living Status: Hx Family Cardiac Disorders: Yes Hx Family Respiratory Disorders: Yes Hx Family Cancer: No Hx Family GI Disorders: No Hx Family Endocrine Disorder: Yes Hx Family Neuromuscular Disorders: No Hx Family Neurologic Disorders: No Hx Family HEENT Disorders: No Hx Family Autoimmune Disorders: No Mother Family Member Ethnicity: Non- Living Status: Hx Family Cardiac Disorders: Yes Hx Family Respiratory Disorders: No Hx Family Cancer: No Hx Family GI Disorders: No Hx Family Endocrine Disorder: No Hx Family Neuromuscular Disorders: No Hx Family Neurologic Disorders: No Hx Family HEENT Disorders: No Hx Family Autoimmune Disorders: No Infectious Disease-CN:Meds RX: Diltiazem CD (24hr) [Cardizem CD] 240 mg PO BID 08/11/15 [History] RX: hydrOXYzine pamoate [HydrOXYzine Pamoate] 25 - 50 mg PO Q6H PRN 08/11/15 [History] RX: Ferrous Sulfate 325 mg PO BIDWM 03/22/17 [History] RX: Furosemide [Lasix] 40 mg PO BID 03/22/17 [History] RX: Insulin Glargine,Hum.rec.anlog [Toujeo Solostar] 65 unit SQ BID 03/22/17 [History] RX: Melatonin 5 mg PO HS 03/22/17 [History] RX: Methocarbamol [Robaxin] 750 mg PO HS 03/22/17 [History] RX: Dulaglutide [Trulicity] 0.75 mg SQ QWEEK 03/21/18 [History] RX: Montelukast [Singulair] 10 mg PO HS 03/21/18 [History] RX: Oxybutynin [Ditropan] 5 mg PO BID 03/21/18 [History] RX: Rivaroxaban [Xarelto] 10 mg PO DAILY #30 tablet 03/21/18 [Rx] RX: FLUoxetine HCl [Prozac] 40 mg PO DAILY 07/02/18 [History] RX: Insulin LISPRO [HumaLOG] 50 units SQ TIDWM 07/02/18 [History] RX: Omeprazole [PriLOSEC] 40 mg PO DAILY 07/02/18 [History] RX: Promethazine [Phenergan] 25 mg PO Q8H PRN 07/02/18 [History] RX: Acetaminophen [Tylenol] 650 mg PO Q6HR PRN tablet 07/09/18 [Rx] Irbesartan [Avapro] 150 mg PO DAILY 08/17/18 [History] Metformin HCl 1,000 mg PO BID 08/17/18 [History] RX: Nabumetone [Relafen] 500 mg PO DAILY 08/17/18 [History] RX: Oxycodone HCl 15 mg PO BID 08/17/18 [History] Rosuvastatin Calcium 20 mg PO DAILY 08/17/18 [History] Dulaglutide [Trulicity] 1.5 mg SQ WE 08/18/18 [History] Pregabalin [Lyrica] 150 mg PO TID 08/18/18 [History] Allergy/AdvReac Type Severity Reaction Status Date / Time Penicillins Allergy Intermediate Rash Verified 03/21/18 13:13 pioglitazone [From Actos] Allergy Intermediate See Verified 03/21/18 13:13 Comments sitagliptin [From Januvia] Allergy Intermediate See Verified 03/21/18 13:13 Comments Sulfa (Sulfonamide Allergy Intermediate Hives Verified 03/21/18 13:13 Antibiotics) nabumetone Allergy Muscle Pain Verified 03/21/18 13:13 sulfamethoxazole Allergy Rash Verified 03/21/18 13:13 [From Bactrim] trimethoprim [From Bactrim] Allergy Rash Verified 03/21/18 13:13 Review of systems: - Constitutional: Admits to subjective fevers. Denies chills, weight loss, generalized fatigue - EENT: Denies vision changes/blurriness, rhinorrhea, congestion, sore throat, odynaphagia - CVS: Admits to edema. Denies chest pain, palpitations - Pulm: Denies SOB, cough, sputum, hematemesis, wheezing - GI: Denies abdominal pain, anorexia, nausea, vomiting, diarrhea, constipation, melena - : Denies dysuria, increased frequency, urgency, hematuria, - MSK: Admits to leg pains. Denies joint pain, limited ROM - Skin: Denies rashes, ulcers, color changes, - Neuro: Denies REYNOLDS, paresthesias, focal deficits Exam - Constitutional Vitals: Temp Pulse Resp BP Pulse Ox 98.4 F 67 18 121/71 97 08/20/18 10:18 08/20/18 10:18 08/20/18 10:18 08/20/18 10:18 08/20/18 10:18 Exam: Gen.: Vitals noted. No acute distress. AAOx3, estimated comfortably in bed. Morbidly obese HEENT: PERRL/EOMI, oropharynx clear, Normocephalic, atraumatic, MMM Cardiac: RRR, no murmur, +S1/S2 Pulmonary: CTA bilaterally, no wheezes, rales or rhonchi, diminished breath sounds in bases. equal chest expansion Abdomen: soft, nontender, BS noted, no guarding, difficult to deeply palpate due to body habitus MSK: no joint swelling noted Extremities: b/l 3+ pitting edema to knee. Erythema to bilateral mid grace which is likely chronic. Erythema of right medial thigh which appears to be receding given marking pen from ED, nontender calf, no cyanosis or clubbing Neuro: A&Ox3, moves all extremities, no focal deficits Psych: Appropriate mood and behavior Infectious Disease CN: Results - Labs CBC & Chem 7: 08/20/18 05:29 08/20/18 05:29 Cultures: Cultures 08/17/18 18:15 Anaerobic Culture - Preliminary Right Leg At this time, no anaerobic growth is present. The culture will be finalized after 5 days of incubation. 08/17/18 18:15 Wound Culture - Preliminary Right Leg Pseudomonas aeruginosa Gram Negative Cruzito#2 Gram Positive Cocci 08/17/18 12:37 Blood Culture - Preliminary Peripheral Venipuncture Culture is incubating and being continuously monitored for growth. Final report to follow. 08/17/18 12:14 Blood Culture - Preliminary Peripheral Venipuncture Culture is incubating and being continuously monitored for growth. Final report to follow. Consult Discharge Plan - Plan Additional Instructions: Follow up in wound care center with Dr. Napier. Please make appointment prior to discharge. Referrals: Wild Napier DPM [Partnered Physician] - Delfino Valdes DO [Primary Care Provider] - - Attending Attestation I examined this patient and my medical decision-making was reviewed with the Resident Physician. I agree with the documented findings, disposition and treatment plan as described except to the extent set forth below. Assessment and then to original report dictated by resident physician. Please refer to resident's note for full detail. Patient is a 48-year-old woman who is known to my service was seen before for hematoma that was for venous stasis dermatitis with hematoma of the right lower extremity. [place]oma [place] [address].5 cm. Patient was taken to the operation room which had evacuation of the hematoma. Presented on 08/17/2018 with right leg cellulitis and a fall. Since admission, patient had no sepsis criteria other than leukocytosis. Patient had a right leg wound culture which grew pseudomonas aeruginosa that was R: Fluoroquinolones, carbapnems S: Cefepime, ceftazidime, aminoglycosides and Zosyn gram-negative cruzito and gram-positive cocci with ID pending. A CT of the right knee reveals a few foci of superficial soft tissue air in the lateral soft tissue of the knee with question of an envelope and collection measuring about 6.62.6 cm in cross section suspicious for an abscess. Patient was evaluated by podiatry and I appreciate the recommendations. Assessment and plan: Cellulitis with lymphedema of the right lower extremity. CT concerning for abscess but clinically doing better and having a repeat CT of the right lower extremity done by podiatry. Cultures are growing pseudomonas aeruginosa, gram- positive cocci and another gram-negative cruzito. The pseudomonas aeruginosa is resistant to the meropenem. Patient apparently is allergic to penicillin but she had a rash which was younger. Recommendations: Continue vancomycin until the gram-positive cocci is finalized DC the meropenem Start cefepime and Flagyl Await repeat CT today and orthoses recommendation Goal vancomycin trough 10-15 Monitor labs and for drug toxicity.
--- NOTE | 2018-08-20 15:33 | Electrocardiograph Report ---
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
[2018-08-20] MEDS: metroNIDAZOLE 500 MG TABLET PO SCH (21:43)
[2018-08-20] MEDS: Melatonin 3 MG TABLET PO SCH (21:44)
[2018-08-21] MEDS: Cefepime HCl 2,000 MG in Water for inj. (sterile) 20 ML 20 ML IVP SCH ×3 (02:42→16:11)
[2018-08-21 04:50] LABS: Basophils % 0.5 %; Eosinophils # 0.3 K/mcL (0.0-0.6); Eosinophils % 4.1 %; Hemoglobin 9.4 g/dL (11.5-15.4); Immature Granulocytes % 0.5 % (0-4); Lymphocytes # 1.3 K/mcL (0.6-4.6); Lymphocytes % 17.5 %; Mean Corpuscular HGB Conc 31.3 g/dL (31.6-35.5); Mean Corpuscular Hemoglobin 28.7 pg (28.0-33.3); Mean Corpuscular Volume 91.5 fL (83.0-100.0); Mean Platelet Volume 11.1 fL (9.4-12.4); Monocytes # 0.9 K/mcL (0.0-1.3); Monocytes % 12.4 %; Neutrophils # 4.9 K/mcL (1.6-8.9); Platelet Count 211 K/mcL (140-400); Red Blood Count 3.28 M/mcL (3.82-4.97); Red Cell Distribution Width 14.9 % (11.5-14.5)
[2018-08-21 05:09] LABS: BUN/Creatinine Ratio 19 (6-26); Blood Urea Nitrogen 14 mg/dL (6-20); Calcium 8.6 mg/dL (8.6-10.3); Carbon Dioxide 30 mEq/L (23-29); Chloride 103 mEq/L (98-107); Glucose 225 mg/dL (70-105); Osmolality,Calculated 296 (280-300); Potassium 3.8 mEq/L (3.5-5.1); Sodium 139 mEq/L (136-145); eGFR For Non-African Americans > 60 (> 60)
--- NOTE | 2018-08-21 08:25 | Internal Med Progress Note ---
<Alas,Faraaz - Last Filed: 08/21/18 10:43> Hospitalist Progress Note - Encounter Date of Encounter: 08/21/18 Time of Encounter: 08:24 - Subjective Interval History: Pt seen and examined resting comfortably at bedside in no acute distress. Notes improving erythema on right lower extremity, however, reports tenderness to palp ation and swelling at right medial thigh. Denies pain without palpation. Wound vac on right lower leg still draining yellow, brown serous fluid. Denies fevers/chills, headache, vision changes, SOB, chest pain, abdominal pain, nausea, vomiting, diarrhea. States she has not had bowel movement for the past 3 days. Per ID recommendations, antibiotics switched to Cefepime, Flagyl, and cont Vancomycin. Culture grew Pseudomonas, Ecoli, and E. faecalis. - Exam Vitals: Temp Pulse Resp BP Pulse Ox 97.9 F 67 16 123/74 95 08/21/18 05:54 08/21/18 05:54 08/21/18 05:54 08/21/18 05:54 08/21/18 05:54 Exam: GEN: AOx3; NAD; Resting comfortably in bed HEENT: Normocephalic, atrauamatic, EOMI CARDIO: RRR, no murmurs, rubs, gallups PULM: CTAB, no wheezes, rhonchi, rales ABD: Soft, non-tender, non-distended EXT: R LE: tender to palpation on anteromedial aspect of right thigh with swelling; erythema that spreads from medial thigh to lower extremity; no crepitus appreciated; evidence of venous stasis dermatitis on b/l lower extremities; evidence of lymphedema on b/l lower extremities; wound vac to right lower extremity draining brown-yellow serous fluid - Assessment and Plan (1) Cellulitis of leg, right Current Visit: Yes Status: Acute Assessment and Plan: Ms. Chiang is a 48 y/o F with PMHx significant for Right Leg Hematoma s/p I&D and excisional debridement (07/06/18), lower extremity lymphedema, Hx of DVTs on Xarelto who presents s/p fall due to left knee pain and right lower extremity erythema and swelling. Left XR: No acute Left Knee Fracture; Stable severe osteoarthritis with degenerative genu varus Venous Doppler: Negative for DVT Right Tibia/Fibular XR: No acute osseous abnormality of right tib and fib; suspected subcutaneous gas identified at level of lateral knee CT Right Knee Without Contrast: Few foci of superficial soft tissue air in the lateral soft tissues of knee - question of enveloping collection measuring 6.6 x 2.6cm - possibly abscess; foci of air far removed from supericial and deep fascia so unlikely necrotizing fasciitis; generalized soft tissue swelling - either vascular vs cellulitis CT right lower extremity with contrast: Extensive subcut. fat stranding and skin thickening in right thigh and medial aspect of left thigh, and anterior as pect of lower abdominal wall --> sterile edema vs cellulitis; no drainable fluid collection identified; no acute osseous abnormality Wound Culture Right Leg: Pseudomonas, E. Coli, Enterococcus faecalis Pt reports mild leg pain anteromedially and spreading to groin. Notes erythema is improving, associated with swelling of medial right thigh PE: tenderness to palpation in right anteromedial leg, erythema, swelling Vitals today: T = 97.9, HR = 67, RR = 16; WBC = 7.5 PLAN: Per ID, D/C Meropenem; Start Cefepime, Flagyl, and cont Vancomycin day #4 (goal vanco trough 10 - 15) ID and orthopedics recommendations appreciated Per podiatry, continue IV antibiotics and cont wound vac Monitor labs and for drug toxicity Follow up blood cultures (2) Chronic ulcer of right calf with fat layer exposed Current Visit: Yes Status: Acute Assessment and Plan: Currently followed by podiatry Continue with wound vac - draining serous yellow/brown fluid (3) SIRS (systemic inflammatory response syndrome) Current Visit: Yes Status: Resolved Assessment and Plan: WBC = 7.5 today T = 97.9 HR = 67 RR = 16 Cont to monitor WBC count (4) Left knee pain Current Visit: Yes Status: Acute Assessment and Plan: XR negative for fracture - noted stable severe osteoarthritis Cont pain medication as needed (5) DVT (deep venous thrombosis) Current Visit: No Status: Chronic Assessment and Plan: LE Doppler negative for DVTs Cont Xarelto due to hx of chronic DVT (6) Diabetes Current Visit: No Status: Chronic Assessment and Plan: Blood sugar: 225 Cont medium dose sliding scale and Levemir (7) Hypertension Current Visit: No Status: Chronic Assessment and Plan: BP = 123/74 Cont Diltiazem, Lasix, Losartan (8) Lymphedema in adult patient Current Visit: Yes Status: Chronic Assessment and Plan: Cont compression and leg elevation (9) Venous stasis dermatitis Current Visit: No Status: Chronic Assessment and Plan: Noted on bilateral lower extremities (10) Morbid obesity Current Visit: No Status: Chronic DVT Prophylaxis: Hx of DVT on xarelto - Time Spent with Patient Total time spent is greater than 50% in coordination of care (as documented) at patient's floor/unit and/or counseling patient: less than 15 minutes Plan of Care Discussed with: patient Internal Medicine: Result - Labs CBC & Chem 7: 08/21/18 04:37 08/21/18 04:37 Labs: Short CBC 08/21/18 Range/Units 04:37 WBC 7.5 (4.3-11.1) K/mcL Hgb 9.4 L (11.5-15.4) g/dL Hct 30.0 L (35.3-44.9) % Plt Count 211 (140-400) K/mcL Neutrophils # 4.9 (1.6-8.9) K/mcL BMP 08/21/18 04:37 Sodium 139 Potassium 3.8 Chloride 103 Carbon Dioxide 30 H BUN 14 Creatinine 0.72 Glucose 225 H Calcium 8.6 - Impressions Impressions Lower Extremity CT 08/20/18 11:04 IMPRESSION: 1. Extensive subcutaneous fat stranding and skin thickening in the right thigh and also in the medial aspect of the left thigh and anterior aspect of the lower abdominal wall compatible with sterile edema versus cellulitis. No drainable fluid collection identified. Please note that the previously identified gas and fluid collection lateral to the proximal tibia is not included in the field of view. 2. No acute osseous abnormality. D/ / Deni Vaughn MD / Deni Vaughn MD Interpreting Provider: Deni Vaughn MD Consult Discharge Plan - Plan Additional Instructions: Follow up in wound care center with Dr. Napier. Please make appointment prior to discharge. Referrals: Wild Napier DPM [Partnered Physician] - Delfino Valdes, [Primary Care Provider] - <Pool Loyd - Last Filed: 08/21/18 16:21> Hospitalist Progress Note - Encounter Date of Encounter: 08/21/18 - Exam Vitals: Temp Pulse Resp BP Pulse Ox 98.5 F 74 17 123/75 92 08/21/18 10:57 08/21/18 10:57 08/21/18 10:57 08/21/18 10:57 08/21/18 10:57 - Assessment and Plan (1) Lymphedema in adult patient Current Visit: Yes Status: Chronic (2) Morbid obesity Current Visit: No Status: Chronic (3) Venous stasis dermatitis Current Visit: No Status: Chronic (4) Diabetes Current Visit: No Status: Chronic (5) DVT (deep venous thrombosis) Current Visit: No Status: Chronic (6) Hypertension Current Visit: No Status: Chronic (7) Cellulitis of leg, right Current Visit: Yes Status: Acute (8) Left knee pain Current Visit: Yes Status: Acute (9) SIRS (systemic inflammatory response syndrome) Current Visit: Yes Status: Resolved - Time Spent with Patient Total time spent is greater than 50% in coordination of care (as documented) at patient's floor/unit and/or counseling patient: Internal Medicine: Result - Labs CBC & Chem 7: 08/21/18 04:37 08/21/18 04:37 Labs: Short CBC 08/21/18 Range/Units 04:37 WBC 7.5 (4.3-11.1) K/mcL Hgb 9.4 L (11.5-15.4) g/dL Hct 30.0 L (35.3-44.9) % Plt Count 211 (140-400) K/mcL Neutrophils # 4.9 (1.6-8.9) K/mcL BMP 08/21/18 04:37 Sodium 139 Potassium 3.8 Chloride 103 Carbon Dioxide 30 H BUN 14 Creatinine 0.72 Glucose 225 H Calcium 8.6 - Impressions Impressions Lower Extremity CT 08/20/18 11:04 IMPRESSION: 1. Extensive subcutaneous fat stranding and skin thickening in the right thigh and also in the medial aspect of the left thigh and anterior aspect of the lower abdominal wall compatible with sterile edema versus cellulitis. No drainable fluid collection identified. Please note that the previously identified gas and fluid collection lateral to the proximal tibia is not included in the field of view. 2. No acute osseous abnormality. D/ / Deni Vaughn MD / Deni Vaughn MD Interpreting Provider: Deni Vaughn MD Knee X-Ray 08/21/18 14:27 IMPRESSION: New surgical drain and involving the lateral aspect of the right knee. Subcutaneous gas is identified which is slightly improved Moderate patellofemoral joint osteoarthritis. D/ / 08/21/2018 15:47:17 Eliu Reeves MD / manuel Interpreting Provider: Eliu Reeves MD - Attending Attestation I saw and assessed this patient and agree with plan per resident as above Exam EXT: R LE: tender to palpation on anteromedial aspect of right thigh with s welling; erythema that spreads from medial thigh to lower extremity Plan Right leg cellulitis. Continue IV antibiotics with Vanc, cefepime and flagyl. Follow cultures Right knee subcutaneous gas. Ortho recs appreciated <Leeann Alas - Last Filed: 08/21/18 10:43> (4) Left knee pain Qualifiers: Chronicity: acute Qualified Code(s): M25.562 - Pain in left knee (5) DVT (deep venous thrombosis) Qualifiers: DVT location: lower extremity Affected thrombotic vein of extremity: unspecified vein of extremity Chronicity: chronic Laterality: bilateral Qualified Code(s): I82.503 - Chronic embolism and thrombosis of unspecified deep veins of lower extremity, bilateral (6) Diabetes Qualifiers: Diabetes mellitus type: type 2 Diabetes mellitus account management specialist insulin use: with mcfp use Diabetes mellitus complication status: with hyperglycemia Qualified Code(s): E11.65 - Type 2 diabetes mellitus with hyperglycemia; Z79.4 - inspector raw quartz (current) use of 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 <Pool Loyd - Last Filed: 08/21/18 16:21> (3) Venous stasis dermatitis Qualifiers: Laterality: bilateral Qualified Code(s): I87.2 - Venous insufficiency (chronic) (peripheral) (4) Diabetes Qualifiers: Diabetes mellitus type: type 2 Diabetes mellitus mcfp insulin use: with mcfp use Diabetes mellitus complication status: with hyperglycemia Qualified Code(s): E11.65 - Type 2 diabetes mellitus with hyperglycemia; Z79.4 - inspector raw quartz (current) use of insulin (5) DVT (deep venous thrombosis) Qualifiers: DVT location: lower extremity Affected thrombotic vein of extremity: unspecified vein of extremity Chronicity: chronic Laterality: bilateral Qualified Code(s): I82.503 - Chronic embolism and thrombosis of unspecified deep veins of lower extremity, bilateral (6) Hypertension Qualifiers: Hypertension type: essential hypertension Qualified Code(s): I10 - Essential (primary) hypertension (8) Left knee pain Qualifiers: Chronicity: acute Qualified Code(s): M25.562 - Pain in left knee
[2018-08-21] MEDS: Insulin LISPRO 300 UNITS/3 ML VIAL SQ SCH ×7 (08:35→22:19)
[2018-08-21] MEDS: Diltiazem CD (24hr) 240 MG CAPSULE PO SCH (08:36)
[2018-08-21] MEDS: Insulin DETEMIR 100 UNIT/ML X5UNITS SQ SCH ×2 (08:36→20:22)
[2018-08-21] MEDS: metroNIDAZOLE 500 MG TABLET PO SCH ×3 (08:37→20:22)
[2018-08-21] MEDS: *HR* Rivaroxaban 10 MG TABLET PO SCH (08:37)
[2018-08-21] MEDS: *HR* OxyCODONE Immed Rel 15 MG TABLET PO SCH ×2 (08:37→20:21)
[2018-08-21] MEDS: Pregabalin 75 MG CAPSULE PO SCH ×3 (08:37→20:22)
[2018-08-21] MEDS: FLUoxetine 20 MG CAPSULE PO SCH (08:37)
[2018-08-21] MEDS: Furosemide 20 MG TABLET PO SCH ×2 (08:37→16:12)
[2018-08-21] MEDS: Lactobacillus 1 EACH CAP.SPRINK PO SCH ×2 (08:37→20:22)
--- NOTE | 2018-08-21 11:24 | Infectious Disease Progress No ---
Date of Encounter: 08/21/18 Time of Encounter: 11:21 - Assessment and Plan (1) Cellulitis of leg, right Current Visit: Yes Status: Acute - Septic on presentation with heart rate of 103 as well as leukocytosis of 13.1. Lactic acid of 2.2 - Suspected source: Cellulitis of right leg - Suspected organism: Multiple as below - Sepsis has currently resolved with normal vitals. Leukocytosis wnl at 7.5. - Suspected cellulitis of right lower shortly does appear to be receding with IV antibiotics. - Potentially complicated by right lower extremity skin barrier disruption as well as diabetes and chronic severe lymphadema - Podiatry is following with wound VAC in place for previous injury - ESR and CRP on 08/18/18 and 55 and 255 respectively - Previous wound cultures do show multidrug-resistant Acinetobacter - Blood culture 2 on 08/17/18 no growth - Right leg anaerobic culture on 08/17/18 no growth preliminary - Wound culture on 08/17/18 growing - Organism #1 Pseudomonas aeruginosa sensitive to cefepime, ceftazidime, gentamicin, Zosyn, tobramycin. Resistant to meropenem. - Organism #2: E.Coli sensitive to cefepime - Organism #3: Enterococcus feacalis sensitive to vanc, zyvox, daptomycin, ampicillin - Organism #4 gram negative cruzito - Tibia x-ray on 08/17 status 18 does show evidence of soft tissue air - Knee CT on 08/18/18 also demonstrated soft tissue air measuring 6.6 x 2.6 cm suspicious for abscess formation but did not demonstrate penetration to the fascia and is not typical for necrotizing fasciitis. - Chest x-ray does not show signs of consolidation. - Allergic to PCN, rash Plan - Continue Cefepime 2 grams IV q8 hours (day 1) - Continue flagyl 500mg po TID (day 2) - Await CT RLE to finalize - Continue vancomycin day #4; goal vancomycin trough 10-15; will ask pharmacy to help with dosing pt BMI 70 - Monitor labs and for drug toxicity - Continue to monitor culture sensitivities and de-escalate as able (2) Venous stasis dermatitis Current Visit: Yes Status: Chronic - Chronic, bilateral - Podiatry following Qualifiers: Laterality: bilateral Qualified Code(s): I87.2 - Venous insufficiency (chronic) (peripheral) (3) Morbid obesity Current Visit: Yes Status: Chronic (4) Diabetes Current Visit: Yes Status: Chronic - We will controlled with most recent A1c of 6.6% on presentation - Blood sugars are elevated however this may be secondary to infection - Further management per primary team Qualifiers: Diabetes mellitus type: type 2 Diabetes mellitus buttermaker insulin use: with buttermaker use Diabetes mellitus complication status: with hyperglycemia Qualified Code(s): E11.65 - Type 2 diabetes mellitus with hyperglycemia; Z79.4 - intermodal customer service (current) use of insulin - Subjective Interval history: Patient seen and examined up and since morning. She states that overall she feels about the same. She is still complaining of bilateral lower extremity swelling and pain but states the redness has gone down. She is denying any further drainage from the wounds. She is not having any symptoms of fevers, ch ills, nausea, vomiting. Infect Dis PN-Objective Data - Labs CBC & Chem 7: 08/22/18 03:32 08/22/18 03:32 Labs: Laboratory Results - last 24 hr 08/19/18 08/19/18 08/19/18 08:04 11:44 17:21 WBC RBC Hgb Hct MCV MCH MCHC RDW Plt Count MPV Immature Gran % Seg Neutrophils % Lymphocytes % Monocytes % Eosinophils % Basophils % Neutrophils # Lymphocytes # Monocytes # Eosinophils # Basophils # Sodium Potassium Chloride Carbon Dioxide BUN Creatinine Est GFR ( Amer) Est GFR (Non-Af Amer) BUN/Creatinine Ratio Glucose POC Glucose 248 H 251 H 178 H Calculated Osmolality Calcium Random Vancomycin 08/20/18 08/20/18 08/21/18 11:22 16:11 04:37 WBC RBC Hgb Hct MCV MCH MCHC RDW Plt Count MPV Immature Gran % Seg Neutrophils % Lymphocytes % Monocytes % Eosinophils % Basophils % Neutrophils # Lymphocytes # Monocytes # Eosinophils # Basophils # Sodium Potassium Chloride Carbon Dioxide BUN Creatinine Est GFR ( Amer) Est GFR (Non-Af Amer) BUN/Creatinine Ratio Glucose POC Glucose 196 H 211 H Calculated Osmolality Calcium Random Vancomycin 20 08/21/18 08/21/18 04:37 04:37 WBC 7.5 RBC 3.28 L Hgb 9.4 L Hct 30.0 L MCV 91.5 MCH 28.7 MCHC 31.3 L RDW 14.9 H Plt Count 211 MPV 11.1 Immature Gran % 0.5 Seg Neutrophils % 65.0 Lymphocytes % 17.5 Monocytes % 12.4 Eosinophils % 4.1 Basophils % 0.5 Neutrophils # 4.9 Lymphocytes # 1.3 Monocytes # 0.9 Eosinophils # 0.3 Basophils # 0.0 Sodium 139 Potassium 3.8 Chloride 103 Carbon Dioxide 30 H BUN 14 Creatinine 0.72 Est GFR ( Amer) > 60 Est GFR (Non-Af Amer) > 60 BUN/Creatinine Ratio 19 Glucose 225 H POC Glucose Calculated Osmolality 296 Calcium 8.6 Random Vancomycin Cultures: Cultures 08/17/18 18:15 Wound Culture - Preliminary Right Leg Pseudomonas aeruginosa Escherichia coli Enterococcus faecalis Gram Negative Cruzito 08/17/18 18:15 Anaerobic Culture - Preliminary Right Leg At this time, no anaerobic growth is present. The culture will be finalized after 5 days of incubation. 08/17/18 12:37 Blood Culture - Preliminary Peripheral Venipuncture Culture is incubating and being continuously monitored for growth. Final report to follow. 08/17/18 12:14 Blood Culture - Preliminary Peripheral Venipuncture Culture is incubating and being continuously monitored for growth. Final report to follow. - Impressions Impressions Lower Extremity CT 08/20/18 11:04 IMPRESSION: 1. Extensive subcutaneous fat stranding and skin thickening in the right thigh and also in the medial aspect of the left thigh and anterior aspect of the lower abdominal wall compatible with sterile edema versus cellulitis. No drainable fluid collection identified. Please note that the previously identified gas and fluid collection lateral to the proximal tibia is not included in the field of view. 2. No acute osseous abnormality. D/ / Deni Vaughn MD / Deni Vaughn MD Interpreting Provider: Deni Vaughn MD Exam - Constitutional Vitals: Temp Pulse Resp BP Pulse Ox 98.5 F 74 17 123/75 92 08/21/18 10:57 08/21/18 10:57 08/21/18 10:57 08/21/18 10:57 08/21/18 10:57 Exam: Gen.: Vitals noted. No acute distress. AAOx3. Morbidly obese HEENT: PERRL/EOMI, oropharynx clear, Normocephalic, atraumatic, MMM Cardiac: RRR, no murmur, +S1/S2 Pulmonary: CTA bilaterally, no wheezes, rales or rhonchi, equal chest expansion Abdomen: soft, nontender, BS noted, no guarding, no rebound. mildly distended Extremities: B/l lymphadema to lower extremities with evidence of venous stasis and thickened skin. Right leg with wound vac and wrapping. 120 mL output of brown fluid. Erythema not appreciated during todays exam. Neuro: A&Ox3, moves all extremities, no focal deficits Psych: Appropriate mood and behavior Consult Discharge Plan - Plan Additional Instructions: Follow up in wound care center with Dr. Napier. Please make appointment prior to discharge. Referrals: Wild Napier DPM [Partnered Physician] - Delfino Valdes DO [Primary Care Provider] - - Attending Attestation I examined this patient and my medical decision-making was reviewed with the Resident Physician. I agree with the documented findings, disposition and treatment plan as described except to the extent set forth below.
[2018-08-21] MEDS: Melatonin 3 MG TABLET PO SCH (20:22)
[2018-08-21] MEDS: hydrOXYzine pamoate 25 MG CAPSULE PO PRN (20:22)
[2018-08-22] MEDS: Cefepime HCl 2,000 MG in Water for inj. (sterile) 20 ML 20 ML IVP SCH ×2 (02:30→08:31)
[2018-08-22 03:49] LABS: Basophils # 0.1 K/mcL (0.0-0.2); Basophils % 0.9 %; Eosinophils # 0.6 K/mcL (0.0-0.6); Eosinophils % 6.5 %; Hematocrit 30.5 % (35.3-44.9); Hemoglobin 9.8 g/dL (11.5-15.4); Immature Granulocytes % 0.6 % (0-4); Lymphocytes # 1.4 K/mcL (0.6-4.6); Lymphocytes % 16.3 %; Mean Corpuscular HGB Conc 32.1 g/dL (31.6-35.5); Mean Corpuscular Hemoglobin 28.8 pg (28.0-33.3); Mean Corpuscular Volume 89.7 fL (83.0-100.0); Monocytes % 11.5 %; Neutrophils # 5.6 K/mcL (1.6-8.9); Platelet Count 235 K/mcL (140-400); Red Cell Distribution Width 14.7 % (11.5-14.5); Segmented Neutrophils % 64.2 %
[2018-08-22 04:05] LABS: BUN/Creatinine Ratio 24 (6-26); Blood Urea Nitrogen 15 mg/dL (6-20); Calcium 8.9 mg/dL (8.6-10.3); Carbon Dioxide 30 mEq/L (23-29); Chloride 102 mEq/L (98-107); Glucose 198 mg/dL (70-105); Osmolality,Calculated 292 (280-300); Potassium 3.7 mEq/L (3.5-5.1); Sodium 138 mEq/L (136-145); eGFR For Non-African Americans > 60 (> 60)
--- NOTE | 2018-08-22 08:23 | Internal Med Progress Note ---
Hospitalist Progress Note - Encounter Date of Encounter: 08/22/18 Time of Encounter: 08:20 - Exam Vitals: Temp Pulse Resp BP Pulse Ox 97.6 F 74 15 142/86 94 08/22/18 07:15 08/22/18 07:15 08/22/18 07:15 08/22/18 07:15 08/22/18 07:15 Exam: GEN: AOx3; NAD; Resting comfortably in bed HEENT: Normocephalic, atrauamatic, EOMI CARDIO: RRR, no murmurs, rubs, gallups PULM: CTAB, no wheezes, rhonchi, rales ABD: Soft, non-tender, non-distended EXT: R LE: tender to palpation on anteromedial aspect of right thigh with swelling; erythema that spreads from medial thigh to lower extremity; no crepitus appreciated; evidence of venous stasis dermatitis on b/l lower extremities; evidence of lymphedema on b/l lower extremities; wound vac to right lower extremity draining brown-yellow serous fluid - Assessment and Plan (1) Cellulitis of leg, right Current Visit: Yes Status: Acute Assessment and Plan: Pt has extensive right lower extremity cellulitis which has improved. Wound cultures growing pseudomonas, e coli, enterococcus and klebsiella ESBL Was previously on Vanc, cefepime and flagyl. Due to resistance patterns, will switch to Vanc, ertapenem and topical gentamicin per ID recs (2) Morbid obesity Current Visit: Yes Status: Chronic Assessment and Plan: Diet and exercise (3) Venous stasis dermatitis Current Visit: Yes Status: Chronic Assessment and Plan: Venous stasis with chronic ulcer of right calf. Podiatry following and wound vac in place (4) Diabetes Current Visit: Yes Status: Chronic Assessment and Plan: on ISS + Levemir will check Hb A1C (5) Hypertension Current Visit: Yes Status: Chronic Assessment and Plan: resumed home meds cont close monitoring (6) Knee pain Current Visit: Yes Status: Acute Assessment and Plan: Knee xray showing patellofemoral joint osteoarthritis and subcutaneous gas. Ortho recs appreciated (7) DVT (deep venous thrombosis) Current Visit: No Status: Chronic Assessment and Plan: cont home med Xarelto - Time Spent with Patient Total time spent is greater than 50% in coordination of care (as documented) at patient's floor/unit and/or counseling patient: Internal Medicine: Result - Labs CBC & Chem 7: 08/22/18 03:32 08/22/18 03:32 Labs: Short CBC 08/22/18 Range/Units 03:32 WBC 8.6 (4.3-11.1) K/mcL Hgb 9.8 L (11.5-15.4) g/dL Hct 30.5 L (35.3-44.9) % Plt Count 235 (140-400) K/mcL Neutrophils # 5.6 (1.6-8.9) K/mcL BMP 08/22/18 03:32 Sodium 138 Potassium 3.7 Chloride 102 Carbon Dioxide 30 H BUN 15 Creatinine 0.63 Glucose 198 H Calcium 8.9 - Impressions Impressions Knee X-Ray 08/21/18 14:27 IMPRESSION: New surgical drain and involving the lateral aspect of the right knee. Subcutaneous gas is identified which is slightly improved Moderate patellofemoral joint osteoarthritis. D/ / 08/21/2018 15:47:17 Eliu Reeves MD / manuel Interpreting Provider: Eliu Reeves MD Consult Discharge Plan - Plan Additional Instructions: Follow up in wound care center with Dr. Napier. Please make appointment prior to discharge. Referrals: Wild Napier DPM [Partnered Physician] - Delfino Valdes DO [Primary Care Provider] - (3) Venous stasis dermatitis Qualifiers: Laterality: bilateral Qualified Code(s): I87.2 - Venous insufficiency (chronic) (peripheral) (4) Diabetes Qualifiers: Diabetes mellitus type: type 2 Diabetes mellitus detention insulin use: with head start teacher use Diabetes mellitus complication status: with hyperglycemia Qualified Code(s): E11.65 - Type 2 diabetes mellitus with hyperglycemia; Z79.4 - maintenance mechanic (current) use of insulin (5) Hypertension Qualifiers: Hypertension type: essential hypertension Qualified Code(s): I10 - Essential (primary) hypertension (7) DVT (deep venous thrombosis) Qualifiers: DVT location: lower extremity Affected thrombotic vein of extremity: unspecified vein of extremity Chronicity: chronic Laterality: bilateral Qualified Code(s): I82.503 - Chronic embolism and thrombosis of unspecified deep veins of lower extremity, bilateral
[2018-08-22] MEDS: Insulin LISPRO 300 UNITS/3 ML VIAL SQ SCH ×7 (08:32→21:46)
[2018-08-22] MEDS: Diltiazem CD (24hr) 240 MG CAPSULE PO SCH (08:34)
[2018-08-22] MEDS: Insulin DETEMIR 100 UNIT/ML X5UNITS SQ SCH ×2 (08:34→21:53)
[2018-08-22] MEDS: Furosemide 20 MG TABLET PO SCH ×2 (08:34→16:28)
[2018-08-22] MEDS: *HR* Rivaroxaban 10 MG TABLET PO SCH (08:35)
[2018-08-22] MEDS: *HR* OxyCODONE Immed Rel 15 MG TABLET PO SCH ×2 (08:35→21:52)
[2018-08-22] MEDS: FLUoxetine 20 MG CAPSULE PO SCH (08:36)
[2018-08-22] MEDS: Pregabalin 75 MG CAPSULE PO SCH ×3 (08:36→21:52)
[2018-08-22] MEDS: metroNIDAZOLE 500 MG TABLET PO SCH (08:36)
[2018-08-22] MEDS: Lactobacillus 1 EACH CAP.SPRINK PO SCH ×2 (08:38→21:52)
--- NOTE | 2018-08-22 11:05 | Infectious Disease Progress No ---
Date of Encounter: 08/22/18 Time of Encounter: 09:50 - Assessment and Plan (1) Cellulitis of leg, right Current Visit: Yes Status: Acute - Septic on presentation with heart rate of 103 as well as leukocytosis of 13.1. Lactic acid of 2.2 - Suspected source: Cellulitis of right leg - Suspected organism: Multiple as below - Sepsis has currently resolved with normal vitals. Leukocytosis wnl at 8.6 - Suspected cellulitis of right lower shortly does appear to be receding with IV antibiotics. - Potentially complicated by right lower extremity skin barrier disruption as well as diabetes and chronic severe lymphadema - Podiatry is following with wound VAC in place for previous injury - ESR and CRP on 08/18/18 and 55 and 255 respectively - Previous wound cultures do show multidrug-resistant Acinetobacter - Blood culture 2 on 08/17/18 no growth - Right leg anaerobic culture on 08/17/18 no growth preliminary - Wound culture on 08/17/18 growing - Organism #1 Pseudomonas aeruginosa sensitive to cefepime, ceftazidime, gentamicin, Zosyn, tobramycin. Resistant to meropenem. - Organism #2: E.Coli sensitive to cefepime - Organism #3: Enterococcus feacalis sensitive to vanc, zyvox, daptomycin, ampicillin - Organism #4 gram negative cruzito - Tibia x-ray on 08/17 does show evidence of soft tissue air - Knee CT on 08/18/18 also demonstrated soft tissue air measuring 6.6 x 2.6 cm suspicious for abscess formation but did not demonstrate penetration to the fascia and is not typical for necrotizing fasciitis. - Knee Xray 08/21/18 shows mild improvement of subcutaneous gas. - Chest x-ray does not show signs of consolidation. - Allergic to PCN, rash Plan - Continue Cefepime 2 grams IV q8 hours (day 2) - Continue flagyl 500mg po TID (day 3) - Continue vancomycin day #5; goal vancomycin trough 10-15; will ask pharmacy to help with dosing pt BMI 70. Trough has been 40/20/19 and dosing has been held for time being until random trough at goal. - Await CT RLE to finalize - Monitor labs and for drug toxicity - Continue to monitor culture sensitivities and de-escalate as able (2) Venous stasis dermatitis Current Visit: Yes Status: Chronic - Chronic, bilateral - Podiatry following Qualifiers: Laterality: bilateral Qualified Code(s): I87.2 - Venous insufficiency (chronic) (peripheral) (3) Morbid obesity Current Visit: Yes Status: Chronic (4) Diabetes Current Visit: Yes Status: Chronic - We will controlled with most recent A1c of 6.6% on presentation - Blood sugars are elevated however this may be secondary to infection - Further management per primary team Qualifiers: Diabetes mellitus type: type 2 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 She states that overall she feels about the same. She is still complaining of bilateral lower extremity swelling and pain but states the redness has gone down. Pain she describes as burning down the anterior part of her right leg. She is denying any further drainage from the wounds. She is not having any symptoms of fevers, chills, nausea, vomiting. Infect Dis PN-Objective Data - Labs CBC & Chem 7: 08/22/18 03:32 08/22/18 03:32 Labs: Laboratory Results - last 24 hr 08/20/18 08/21/18 08/21/18 21:46 07:30 11:34 WBC RBC Hgb Hct MCV MCH MCHC RDW Plt Count MPV Immature Gran % Seg Neutrophils % Lymphocytes % Monocytes % Eosinophils % Basophils % Neutrophils # Lymphocytes # Monocytes # Eosinophils # Basophils # Sodium Potassium Chloride Carbon Dioxide BUN Creatinine Est GFR ( Amer) Est GFR (Non-Af Amer) BUN/Creatinine Ratio Glucose POC Glucose 129 H 197 H 171 H Calculated Osmolality Calcium Random Vancomycin 08/22/18 08/22/18 08/22/18 03:32 03:32 03:32 WBC 8.6 RBC 3.40 L Hgb 9.8 L Hct 30.5 L MCV 89.7 MCH 28.8 MCHC 32.1 RDW 14.7 H Plt Count 235 MPV 11.0 Immature Gran % 0.6 Seg Neutrophils % 64.2 Lymphocytes % 16.3 Monocytes % 11.5 Eosinophils % 6.5 Basophils % 0.9 Neutrophils # 5.6 Lymphocytes # 1.4 Monocytes # 1.0 Eosinophils # 0.6 Basophils # 0.1 Sodium 138 Potassium 3.7 Chloride 102 Carbon Dioxide 30 H BUN 15 Creatinine 0.63 Est GFR ( Amer) > 60 Est GFR (Non-Af Amer) > 60 BUN/Creatinine Ratio 24 Glucose 198 H POC Glucose Calculated Osmolality 292 Calcium 8.9 Random Vancomycin 19 Cultures: Cultures 08/17/18 18:15 Wound Culture - Preliminary Right Leg Pseudomonas aeruginosa Escherichia coli Enterococcus faecalis Gram Negative Cruzito 08/17/18 18:15 Anaerobic Culture - Preliminary Right Leg At this time, no anaerobic growth is present. The culture will be finalized after 5 days of incubation. 08/17/18 12:37 Blood Culture - Preliminary Peripheral Venipuncture Culture is incubating and being continuously monitored for growth. Final report to follow. 08/17/18 12:14 Blood Culture - Preliminary Peripheral Venipuncture Culture is incubating and being continuously monitored for growth. Final report to follow. - Impressions Impressions Knee X-Ray 08/21/18 14:27 IMPRESSION: New surgical drain and involving the lateral aspect of the right knee. Subcutaneous gas is identified which is slightly improved Moderate patellofemoral joint osteoarthritis. D/ / 08/21/2018 15:47:17 Eliu Reeves MD / [email or web address] Interpreting Provider: Eliu Reeves MD Exam - Constitutional Vitals: Temp Pulse Resp BP Pulse Ox 97.6 F 74 15 142/86 94 08/22/18 07:15 08/22/18 07:15 08/22/18 07:15 08/22/18 07:15 08/22/18 07:15 Exam: Gen.: Vitals noted. No acute distress. AAOx3. Resting comfortably sitting up at bedside. HEENT: PERRL/EOMI, oropharynx clear, Normocephalic, atraumatic, MMM Cardiac: RRR, no murmur, +S1/S2 Pulmonary: CTA bilaterally, no wheezes, rales or rhonchi, equal chest expansion MSK: ROM intact, no joint swelling noted, muscle strength intact Extremities: Severe bilateral lymphedema with chronic stasis dermatitis. Superimposed right lower extremity erythema stable from previous exam. Some pain with palpation. No warmth, drainage appreciated. Wound VAC in place on right with 200 mL of brown serous fluid. Surrounding area non infected appearing. nontender calf, no cyanosis or clubbing Neuro: A&Ox3, moves all extremities, no focal deficits. Peripheral neuropathy at baseline, sensation intact Psych: Appropriate mood and behavior Consult Discharge Plan - Plan Additional Instructions: Follow up in wound care center with Dr. Napier. Please make appointment prior to discharge. Referrals: Wild Napier DPM [Partnered Physician] - Delfino Valdes DO [Primary Care Provider] - - Attending Attestation I examined this patient and my medical decision-making was reviewed with the Resident Physician. I agree with the documented findings, disposition and treatment plan as described except to the extent set forth below. Cultures finalize and includes: Pseudomonas aeruginosa R: Ciprofloxacin, imipenem, levofloxacin Escherichia coli R: Ampicillin, Unasyn, fluoroquinolones, Bactrim Klebsiella pneumonia ESBL R: Unasyn, cefazolin, cefepime, ceftazidime, ceftriaxone, fluoroquinolones, Bactrim. Enterococcus faecalis ampicillin sensitive This is further complicated by the fact that the patient is allergic to penicillin and to sulfa Based on the susceptibility pattern, it is really hard to make a decision on how to treat the patient. The only option the way things are right now would include a carbapnems, aminoglycosides and vancomycin which would be a very harsh on her kidneys. The other possibility is we asked allergy immunology to evaluate the patient and desensitizer even see if she has a true allergies to penicillin and give her Zosyn which should cover everything. I am leaning towar ds the second option I will the hospitalist team know.
[2018-08-22] MEDS: hydrOXYzine pamoate 25 MG CAPSULE PO PRN (11:38)
--- NOTE | 2018-08-22 15:38 | Podiatry Progress Note ---
Date of Encounter: 08/22/18 Time of Encounter: 12:00 - Assessment and Plan (1) Cellulitis Current Visit: Yes Status: Chronic Qualifiers: Site of cellulitis: extremity Site of cellulitis of extremity: lower extremity Laterality: right Qualified Code(s): L03.115 - Cellulitis of right lower limb (2) Hematoma of right lower extremity Current Visit: No Status: Acute Healing hematoma site s/p I&D and wound vac placement Previous wound vac removed Cleansed with 0.9 normal saline 350ml serous fluid to canister Maceration noted to periwound area Painted maceration with betadine- 4x4 applied to macerated area created by fluid from vac sponge, sealed around Wound bed is red and beefy. VAC sponge cut to fit wound. Tracked to anterior aspect of RLE. Good seal noted - applied to 125 mmHg. Covered with Kerlix. To be changed Monday. Will need home care to follow up with when discharged Qualifiers: Encounter type: subsequent encounter Qualified Code(s): S80.11XD - Contusion of right lower leg, subsequent encounter Subjective Interval history: Ms. Chiang iis a patient we are following in regards to a previous hematoma of the leg. She was admitted related to pain and edema of the RLE- cultures have since revealed multibacterial infection and she is being followed per ID. She has continued wound vac therapy while admitted and we have been seeing her for wound management. Patient states she feels somewhat better. States she is just waiting to find out about the antibiotics and wound vac. States that [facility] is calling her saying the wound vac will not be covered. States case management has been trying to deal with it. Denies any fevers,chills, n/v or fls. Objective - Vital Signs Vital Signs: Vital Signs Temp Pulse Resp BP Pulse Ox 08/22/18 11:11 97.3 F L 88 16 120/75 91 08/22/18 07:15 97.6 F 74 15 142/86 94 08/21/18 19:03 98.1 F 82 15 153/79 94 Intake and Output 08/21/18 08/22/18 08/22/18 23:59 07:59 15:59 Intake Total 1180 / 1180 20 / 20 560 / 560 Output Total 600 / 600 400 / 400 250 / 250 Balance 580 / 580 -380 / -380 310 / 310 Intake: IV Fluids 20 20 20 / 20 Maxipime 2,000 MG In Water for 20 / 20 inj. (sterile) 20 ML @ 300 mls/ hr IVP Q8HR [facility] Rx#:[id number] Oral 1160 / 1160 540 / 540 Output: Urine 600 / 600 400 / 400 250 / 250 Other: Meal Dinner Breakfast Percent of Meal Consumed 100% 100% Stool Size Large Stool Consistency formed Stool Characteristics Pasty Stool Color Brown Black # Bowel Movements 1 Blood Glucose* 181 171 208 - Exam Exam: Awake, alert and oriented Pulses 1+/4 DP and PT Warm toes to tibia Cap refill <3 seconds Wound is healing well, wound bed filling in with 100% healthy granulation tissue Minimal surrounding edema erythema or warmth 350ml of serous drainage was noted to canister Wound measures [id number] with 0.2cm depth There is no undermining or fluctuance noted. There is noted maceration surrounding wound from large amount of drainage and wound vac sponge which was tracked anteriorly to wound. There is no skin breakdown noted at this time. - Lab Result Diagrams: 08/22/18 03:32 08/22/18 03:32 Labs: Abnormal lab results RBC 3.40 M/mcL (3.82-4.97) L 08/22/18 03:32 Hgb 9.8 g/dL (11.5-15.4) L 08/22/18 03:32 Hct 30.5 % (35.3-44.9) L 08/22/18 03:32 RDW 14.7 % (11.5-14.5) H 08/22/18 03:32 ESR 55 mm/hr (0-15) H 08/18/18 08:38 Carbon Dioxide 30 mEq/L (23-29) H 08/22/18 03:32 Glucose 198 mg/dL (70-105) H 08/22/18 03:32 POC Glucose 208 mg/dL (70-99) H 08/22/18 10:57 Hemoglobin A1c 6.6 % (-5.6) H 08/17/18 12:14 C-Reactive Protein 255 mg/L (Less than 10) H 08/18/18 08:38 Vancomycin Trough 40 mcg/mL (5-10) H 08/19/18 00:12 Microbiology, Last 48 Hours 08/17/18 12:37 Blood Culture - Final Peripheral Venipuncture No growth. Final report. 08/17/18 12:14 Blood Culture - Final Peripheral Venipuncture No growth. Final report. 08/17/18 18:15 Wound Culture - Final Right Leg Pseudomonas aeruginosa Escherichia coli Enterococcus faecalis Klebsiella pneumoniae ESBL Consult Discharge Plan - Plan Additional Instructions: Follow up in wound care center with Dr. Napier. Please make appointment prior to discharge. Referrals: Wild Napier DPM [Partnered Physician] - Delfino Valdes DO [Primary Care Provider] -
[2018-08-22] MEDS: Ertapenem 1,000 MG in 0.9 % Sodium Chloride Mini Bag 100 ML IVPB SCH (16:27)
[2018-08-22] MEDS: Melatonin 3 MG TABLET PO SCH (21:52)
[2018-08-22] MEDS: Gentamicin Oint 15 GM TUBE TP SCH (21:53)
[2018-08-23 05:21] LABS: Basophils # 0.1 K/mcL (0.0-0.2); Basophils % 0.9 %; Eosinophils # 0.6 K/mcL (0.0-0.6); Eosinophils % 5.6 %; Hematocrit 32.5 % (35.3-44.9); Hemoglobin 10.5 g/dL (11.5-15.4); Immature Granulocytes % 1.2 % (0-4); Lymphocytes # 1.4 K/mcL (0.6-4.6); Lymphocytes % 13.7 %; Mean Corpuscular HGB Conc 32.3 g/dL (31.6-35.5); Mean Corpuscular Hemoglobin 29.1 pg (28.0-33.3); Mean Platelet Volume 11.2 fL (9.4-12.4); Monocytes % 10.1 %; Platelet Count 240 K/mcL (140-400); Red Blood Count 3.61 M/mcL (3.82-4.97); Red Cell Distribution Width 14.6 % (11.5-14.5); Segmented Neutrophils % 68.5 %
[2018-08-23 05:38] LABS: BUN/Creatinine Ratio 25 (6-26); Blood Urea Nitrogen 16 mg/dL (6-20); Carbon Dioxide 30 mEq/L (23-29); Chloride 102 mEq/L (98-107); Glucose 173 mg/dL (70-105); Magnesium 1.7 mg/dL (1.6-2.6); Osmolality,Calculated 291 (280-300); Phosphorous 3.2 mg/dL (2.7-4.5); Potassium 3.7 mEq/L (3.5-5.1); Sodium 138 mEq/L (136-145); eGFR For Non-African Americans > 60 (> 60)
[2018-08-23] MEDS: Insulin LISPRO 300 UNITS/3 ML VIAL SQ SCH ×6 (09:34→16:52)
--- NOTE | 2018-08-23 09:36 | Orthopedic Consult Note ---
Date of Encounter: 08/23/18 Time of Encounter: 09:19 Assessment and Plan (1) Cellulitis Current Visit: Yes Status: Chronic The diagnosis and treatment options were discussed with the patient. Continue current management with wound care and wound vac. Continue antibiotics as scheduled as erythema has been continuing to improve. No plans for orthopedic s urgical intervention. Will sign off. Follow up in wound care per previous notes. Qualifiers: Site of cellulitis: extremity Site of cellulitis of extremity: lower extremity Laterality: right Qualified Code(s): L03.115 - Cellulitis of right lower limb History of Present Illness HPI: Ms. Chiagn is a 48 year old female being followed in wound care and being treated with a wound vac due to lymphedema and hematoma of the leg. Last week, she started developing progressive erythema over her legs and was admitted with cellulitis going into the thigh. Erythema has been improving on IV antibiotics. She has been seen by Dr Napier for this but orthopedics was called as well. Past Med Surg Social Fam HX - Past Medical History Medical history: DVT, diabetes, GERD, hyperlipidemia, hypertension Additional medical history: Sleep apnea, Lymphedema, DM neuropathy, Cellulitis, Psychiatric history: anxiety, depression - Past Surgical History Surgical History: appendectomy - Social History Smoking Status: Former smoker Smokeless Tobacco Status: No Alcohol use: none Drug use: none - Family History Mother Family Member Ethnicity: Non- Living Status: Hx Family Cardiac Disorders: Yes Hx Family Respiratory Disorders: No Hx Family Cancer: No Hx Family GI Disorders: No Hx Family Endocrine Disorder: No Hx Family Neuromuscular Disorders: No Hx Family Neurologic Disorders: No Hx Family HEENT Disorders: No Hx Family Autoimmune Disorders: No Father Adopted: No Living Status: Hx Family Cardiac Disorders: Yes Hx Family Respiratory Disorders: Yes Hx Family Cancer: No Hx Family GI Disorders: No Hx Family Endocrine Disorder: Yes Hx Family Neuromuscular Disorders: No Hx Family Neurologic Disorders: No Hx Family HEENT Disorders: No Hx Family Autoimmune Disorders: No Medications and Allergies Diltiazem CD (24hr) [Cardizem CD] 240 mg PO BID 08/11/15 [History] hydrOXYzine pamoate [HydrOXYzine Pamoate] 25 - 50 mg PO Q6H PRN 08/11/15 [History] Ferrous Sulfate 325 mg PO BIDWM 03/22/17 [History] Furosemide [Lasix] 40 mg PO BID 03/22/17 [History] Insulin Glargine,Hum.rec.anlog [Toujeo Solostar] 65 unit SQ BID 03/22/17 [History] Melatonin 5 mg PO HS 03/22/17 [History] Methocarbamol [Robaxin] 750 mg PO HS 03/22/17 [History] Dulaglutide [Trulicity] 0.75 mg SQ QWEEK 03/21/18 [History] Montelukast [Singulair] 10 mg PO HS 03/21/18 [History] Oxybutynin [Ditropan] 5 mg PO BID 03/21/18 [History] Rivaroxaban [Xarelto] 10 mg PO DAILY #30 tablet 03/21/18 [Rx] FLUoxetine HCl [Prozac] 40 mg PO DAILY 07/02/18 [History] Insulin LISPRO [HumaLOG] 50 units SQ TIDWM 07/02/18 [History] Omeprazole [PriLOSEC] 40 mg PO DAILY 07/02/18 [History] Promethazine [Phenergan] 25 mg PO Q8H PRN 07/02/18 [History] Acetaminophen [Tylenol] 650 mg PO Q6HR PRN tablet 07/09/18 [Rx] Irbesartan [Avapro] 150 mg PO DAILY 08/17/18 [History] Metformin HCl 1,000 mg PO BID 08/17/18 [History] Nabumetone [Relafen] 500 mg PO DAILY 08/17/18 [History] Oxycodone HCl 15 mg PO BID 08/17/18 [History] Rosuvastatin Calcium 20 mg PO DAILY 08/17/18 [History] Dulaglutide [Trulicity] 1.5 mg SQ WE 08/18/18 [History] Pregabalin [Lyrica] 150 mg PO TID 08/18/18 [History] Allergy/AdvReac Type Severity Reaction Status Date / Time Penicillins Allergy Intermediate Rash Verified 03/21/18 13:13 pioglitazone [From Actos] Allergy Intermediate See Verified 03/21/18 13:13 Comments sitagliptin [From Januvia] Allergy Intermediate See Verified 03/21/18 13:13 Comments Sulfa (Sulfonamide Allergy Intermediate Hives Verified 03/21/18 13:13 Antibiotics) nabumetone Allergy Muscle Pain Verified 03/21/18 13:13 sulfamethoxazole Allergy Rash Verified 03/21/18 13:13 [From Bactrim] trimethoprim [From Bactrim] Allergy Rash Verified 03/21/18 13:13 All Systems Reviewed: The remainder of the systems were reviewed and are negative except as noted in the HPI Physical Exam - Constitutional Vitals: Temp Pulse Resp BP Pulse Ox 97.8 F 73 16 157/76 91 08/23/18 07:41 08/23/18 07:41 08/23/18 07:41 08/23/18 07:41 08/23/18 07:41 Exam: Consult Exam: Constitutional -Vitals reviewed -The patient is obese. Psychiatric -The patient is fully alert and oriented x 3. Respiratory: -Respiratory effort normal Abdomen: -Soft abdomen -Non tender -Non distended: Left upper extremity: -No deformities. The overlying skin is intact. No obvious signs of acute trauma. -No tenderness to palpation throughout. -No significant pain with passive motion of the shoulder, elbow, wrist, and fingers within the limits of the bed. -Able to make an "OK" sign, cross the index and long fingers, and extend the thumb. -Sensation grossly intact to light touch throughout the median, radial, and ulnar distributions. -Radial pulse is present; Fingers have good capillary refill. Right upper extremity: -No deformities. The overlying skin is intact. No obvious signs of acute traum a. -No tenderness to palpation throughout. -No significant pain with passive motion of the shoulder, elbow, wrist, and fingers within the limits of the bed. -Able to make an "OK" sign, cross the index and long fingers, and extend the thumb. -Sensation grossly intact to light touch throughout the median, radial, and ulnar distributions. -Radial pulse is present; Fingers have good capillary refill. Left lower extremity: -Lymphedema -No pain with passive motion of the hip, knee, ankle, and toes within the limits of the bed. -No pain with axial loading of the thigh. -Able to dorsiflex and plantarflex the ankle and toes. -Toes have good capillary refill. Right lower extremity: -Lymphedema. Wound vac in place. Erythema distally, diminished from previous outlines. No gross purulent drainage. -Minimal pain with passive motion of the hip, knee, ankle, and toes within the limits of the bed. -No pain with axial loading of the thigh. -Able to dorsiflex and plantarflex the ankle and toes. -Toes have good capillary refill. Results - Labs Result Diagrams: 08/23/18 04:53 08/23/18 04:53 Labs: Abnormal lab results RBC 3.61 M/mcL (3.82-4.97) L 08/23/18 04:53 Hgb 10.5 g/dL (11.5-15.4) L 08/23/18 04:53 Hct 32.5 % (35.3-44.9) L 08/23/18 04:53 RDW 14.6 % (11.5-14.5) H 08/23/18 04:53 ESR 55 mm/hr (0-15) H 08/18/18 08:38 Carbon Dioxide 30 mEq/L (23-29) H 08/23/18 04:53 Glucose 173 mg/dL (70-105) H 08/23/18 04:53 POC Glucose 155 mg/dL (70-99) H 08/22/18 21:42 Hemoglobin A1c 6.6 % (-5.6) H 08/17/18 12:14 C-Reactive Protein 255 mg/L (Less than 10) H 08/18/18 08:38 Vancomycin Trough 40 mcg/mL (5-10) H 08/19/18 00:12 H & H 08/23/18 Range/Units 04:53 Hgb 10.5 L (11.5-15.4) g/dL Hct 32.5 L (35.3-44.9) % All other labs normal. Consult Discharge Plan - Plan Additional Instructions: Follow up in wound care center with Dr. Napier. Please make appointment prior to discharge. Referrals: Wild Napier DPM [Partnered Physician] - Delfino Valdes DO [Primary Care Provider] -
[2018-08-23] MEDS: Ertapenem 1,000 MG in 0.9 % Sodium Chloride Mini Bag 100 ML IVPB SCH (09:37)
[2018-08-23] MEDS: FLUoxetine 20 MG CAPSULE PO SCH (09:38)
[2018-08-23] MEDS: Furosemide 20 MG TABLET PO SCH ×2 (09:38→16:47)
[2018-08-23] MEDS: *HR* OxyCODONE Immed Rel 15 MG TABLET PO SCH (09:38)
[2018-08-23] MEDS: Pregabalin 75 MG CAPSULE PO SCH ×2 (09:38→16:51)
[2018-08-23] MEDS: Diltiazem CD (24hr) 240 MG CAPSULE PO SCH (09:39)
[2018-08-23] MEDS: Lactobacillus 1 EACH CAP.SPRINK PO SCH (09:39)
[2018-08-23] MEDS: *HR* Rivaroxaban 10 MG TABLET PO SCH (09:39)
[2018-08-23] MEDS: Insulin DETEMIR 100 UNIT/ML X5UNITS SQ SCH (09:54)
--- NOTE | 2018-08-23 10:10 | Internal Med Progress Note ---
Hospitalist Progress Note - Encounter Date of Encounter: 08/23/18 Time of Encounter: 10:07 - Subjective Interval History: Pt seen and examined resting comfortably at bedside in no acute distress. Erythema of right lower extremity is improving. Currently only noted at medial right thigh. Associated with decreased swelling, and decreased tenderness to p alpation. Wound vac on right lower leg continues to drain serous yellow-brown fluid Pt states she was able to get up and walk around yesterday which increased drainage. Notes she is eating and sleeping well, and notes she had a bowel movement yesterday. Wound culture has grown pseudomonas, e. coli, klebsiella and enterococcus faecalis. Currently on Ertapenem and Vancomycin. Per ID rec, will consult allergy for penicillin desensitization, and possible switch to IV Zosyn. Denies fevers/chills, headache, vision changes, SOB, chest pain, abdominal pain, nausea, vomiting, diarrhea, dysuria, leg pain, weakness, fatigue. - Exam Vitals: Temp Pulse Resp BP Pulse Ox 97.8 F 73 16 157/76 91 08/23/18 07:41 08/23/18 07:41 08/23/18 07:41 08/23/18 07:41 08/23/18 07:41 Exam: GEN: AOx3, NAD; resting comfortably in bed HEENT: Normocephalic, atraumatic, EOMI CARDIO: RRR, no murmurs, rubs, gallups PULM: CTAB, no wheezes, rales, rhonchi ABD: Soft, non-tender, non-distended EXT: RLE: decreasing erythema - currently only over medial aspect of right thigh; decreased swelling and tenderness to palpation; evidence of venous stasis dermatitis of b/l lower extremities; lymphedema of b/l lower extremities; no crepitus appreciated medially or laterally around right knee; wound vac to right lower extremity draining yellow-brown serous fluid - 75ccs collected at time of exam - Assessment and Plan (1) Cellulitis of leg, right Current Visit: Yes Status: Acute (2) Chronic ulcer of right calf with fat layer exposed Current Visit: Yes Status: Acute (3) SIRS (systemic inflammatory response syndrome) Current Visit: Yes Status: Resolved (4) Left knee pain Current Visit: Yes Status: Acute (5) DVT (deep venous thrombosis) Current Visit: No Status: Chronic (6) Diabetes Current Visit: Yes Status: Chronic (7) Hypertension Current Visit: Yes Status: Chronic (8) Lymphedema in adult patient Current Visit: Yes Status: Chronic (9) Venous stasis dermatitis Current Visit: Yes Status: Chronic (10) Morbid obesity Current Visit: Yes Status: Chronic - Time Spent with Patient Total time spent is greater than 50% in coordination of care (as documented) at patient's floor/unit and/or counseling patient: Internal Medicine: Result - Labs CBC & Chem 7: 08/23/18 04:53 08/23/18 04:53 Labs: Short CBC 08/23/18 Range/Units 04:53 WBC 10.2 (4.3-11.1) K/mcL Hgb 10.5 L (11.5-15.4) g/dL Hct 32.5 L (35.3-44.9) % Plt Count 240 (140-400) K/mcL Neutrophils # 7.0 (1.6-8.9) K/mcL BMP 08/23/18 04:53 Sodium 138 Potassium 3.7 Chloride 102 Carbon Dioxide 30 H BUN 16 Creatinine 0.65 Glucose 173 H Calcium 9.0 Consult Discharge Plan - Plan Additional Instructions: Follow up in wound care center with Dr. Napier. Please make appointment prior to discharge. Referrals: Wild Napier DPM [Partnered Physician] - 08/30/18 9:30 am (Will be seen in the wound care center.) Delfino Valdes DO [Primary Care Provider] - 08/28/18 11:30 am Prescriptions: Atorvastatin [Lipitor] 40 mg PO HS 30 Days #30 tablet Pregabalin [Lyrica] 150 mg PO TID 30 Days #90 capsule (4) Left knee pain Qualifiers: Chronicity: acute Qualified Code(s): M25.562 - Pain in left knee (5) DVT (deep venous thrombosis) Qualifiers: DVT location: lower extremity Affected thrombotic vein of extremity: unspecified vein of extremity Chronicity: chronic Laterality: bilateral Qualified Code(s): I82.503 - Chronic embolism and thrombosis of unspecified deep veins of lower extremity, bilateral (6) Diabetes Qualifiers: Diabetes mellitus type: type 2 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
[2018-08-23 10:22] VITALS: BP 147/88
[2018-08-23] MEDS: Ondansetron 4 MG/2 ML VIAL IVP PRN (11:46)
[2018-08-23] MEDS: Gentamicin Oint 15 GM TUBE TP SCH (11:47)
--- NOTE | 2018-08-23 12:53 | Physician Discharge Referral ---
- Diagnosis (1) Cellulitis of leg, right Priority: Primary Status: Acute (2) Morbid obesity Priority: Primary Status: Chronic (3) Venous stasis dermatitis Priority: Primary Status: Chronic (4) Diabetes Priority: Primary Status: Chronic (5) Hypertension Priority: Primary Status: Chronic (6) Knee pain Priority: Primary Status: Acute (7) DVT (deep venous thrombosis) Priority: Primary Status: Chronic - Transfer Medications Prescriptions: Atorvastatin [Lipitor] 40 mg PO HS 30 Days #30 tablet Pregabalin [Lyrica] 150 mg PO TID 30 Days #90 capsule Home Medications: Diltiazem CD (24hr) [Cardizem CD] 240 mg PO BID 08/11/15 [History] hydrOXYzine pamoate [HydrOXYzine Pamoate] 25 - 50 mg PO Q6H PRN 08/11/15 [History] Ferrous Sulfate 325 mg PO BIDWM 03/22/17 [History] Furosemide [Lasix] 40 mg PO BID 03/22/17 [History] Insulin Glargine,Hum.rec.anlog [Toujeo Solostar] 65 unit SQ BID 03/22/17 [History] Melatonin 5 mg PO HS 03/22/17 [History] Methocarbamol [Robaxin] 750 mg PO HS 03/22/17 [History] Dulaglutide [Trulicity] 0.75 mg SQ QWEEK 03/21/18 [History] Montelukast [Singulair] 10 mg PO HS 03/21/18 [History] Oxybutynin [Ditropan] 5 mg PO BID 03/21/18 [History] Rivaroxaban [Xarelto] 10 mg PO DAILY #30 tablet 03/21/18 [Rx] FLUoxetine HCl [Prozac] 40 mg PO DAILY 07/02/18 [History] Insulin LISPRO [HumaLOG] 50 units SQ TIDWM 07/02/18 [History] Omeprazole [PriLOSEC] 40 mg PO DAILY 07/02/18 [History] Promethazine [Phenergan] 25 mg PO Q8H PRN 07/02/18 [History] Acetaminophen [Tylenol] 650 mg PO Q6HR PRN tablet 07/09/18 [Rx] Irbesartan [Avapro] 150 mg PO DAILY 08/17/18 [History] Metformin HCl 1,000 mg PO BID 08/17/18 [History] Nabumetone [Relafen] 500 mg PO DAILY 08/17/18 [History] Oxycodone HCl 15 mg PO BID 08/17/18 [History] Rosuvastatin Calcium 20 mg PO DAILY 08/17/18 [History] Dulaglutide [Trulicity] 1.5 mg SQ WE 08/18/18 [History] Pregabalin [Lyrica] 150 mg PO TID 08/18/18 [History] Atorvastatin [Lipitor] 40 mg PO HS 30 Days #30 tablet 08/23/18 [Rx] Pregabalin [Lyrica] 150 mg PO TID 30 Days #90 capsule 08/23/18 [Rx] Allergies/Adverse Reactions: Allergy/AdvReac Type Severity Reaction Status Date / Time Penicillins Allergy Intermediate Rash Verified 03/21/18 13:13 pioglitazone [From Actos] Allergy Intermediate See Verified 03/21/18 13:13 Comments sitagliptin [From Januvia] Allergy Intermediate See Verified 03/21/18 13:13 Comments Sulfa (Sulfonamide Allergy Intermediate Hives Verified 03/21/18 13:13 Antibiotics) nabumetone Allergy Muscle Pain Verified 03/21/18 13:13 sulfamethoxazole Allergy Rash Verified 03/21/18 13:13 [From Bactrim] trimethoprim [From Bactrim] Allergy Rash Verified 03/21/18 13:13 - Respiratory Orders Smoking Cessation: Smoking cessation has been advised. For more information, call the [place] Tobacco Quit Line at 6-239-FECU-NOW. CERTIFICATION: I certify that the transfer of the above named patient to an Extended Care Facility is necessary for the continuing treatment of the diagnosis listed. The above information is true and accurate reflection of patient's current condition. Confidential - Redisclosure prohibited without a patient's written consent.
--- NOTE | 2018-08-23 13:21 | Infectious Disease Progress No ---
Date of Encounter: 08/23/18 Time of Encounter: 10:42 - Assessment and Plan (1) Cellulitis of leg, right Status: Acute - Septic on presentation with heart rate of 103 as well as leukocytosis of 13.1. Lactic acid of 2.2.. Resolved - Suspected source: Cellulitis of right leg - Suspected organism: Multiple as below - Sepsis has currently resolved with normal vitals. Leukocytosis wnl at 10.2 - Suspected cellulitis of right lower shortly does appear to be receding with IV antibiotics. - Potentially complicated by right lower extremity skin barrier disruption as well as diabetes and chronic severe lymphadema - Podiatry is following with wound VAC in place for previous injury - ESR and CRP on 08/18/18 and 55 and 255 respectively - Previous wound cultures do show multidrug-resistant Acinetobacter - Blood culture 2 on 08/17/18 no growth - Right leg anaerobic culture on 08/17/18 no growth preliminary - Wound culture on 08/17/18 growing - Organism #1 Pseudomonas aeruginosa sensitive to cefepime, ceftazidime, gentamicin, Zosyn, tobramycin. Resistant to meropenem. - Organism #2: E.Coli sensitive to cefepime - Organism #3: Enterococcus feacalis sensitive to vanc, zyvox, daptomycin, ampicillin - Organism #4 Klebsiella pneumoniae ESBL sensitive to carbapenems, aminoglycosides, Zosyn - Tibia x-ray on 08/17 does show evidence of soft tissue air - Knee CT on 08/18/18 also demonstrated soft tissue air measuring 6.6 x 2.6 cm suspicious for abscess formation but did not demonstrate penetration to the fascia and is not typical for necrotizing fasciitis. - Knee Xray 08/21/18 shows mild improvement of subcutaneous gas. - Chest x-ray does not show signs of consolidation. - Allergic to PCN, rash last use approximately 30 years ago. Previously received cefepime, 2 days. Flagyl, 3 days. Vancomycin 5 days - Started yesterday on ertapenem, vancomycin, topical gentamicin due to concerns with kidney function. Plan - Continue antibiotics of IV vancomycin, IV ertapenem, topical gentamicin. - Duration of treatment likely 10 days from today, stop date 09/01 as her Klebsiella has not been treated to this point. - Goal vancomycin trough 10-15; will ask pharmacy to help with dosing pt BMI 70. Trough has been 40/20/19 and dosing has been held for time being until random trough at goal. 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 She states that overall she feels about the same. She continues to deny any symptoms of fevers, chills, discharge from her wounds. Erythema has receded back to baseline. She feels that her legs have significantly improved since admission. She is expressing s ome anxiety this morning as well as unfamiliarity with her plan. This was discussed with her and she is expressing understanding. Infect Dis PN-Objective Data - Labs CBC & Chem 7: 08/23/18 04:53 08/23/18 04:53 Labs: Laboratory Results - last 24 hr 08/21/18 08/22/18 08/22/18 21:45 16:00 21:42 WBC RBC Hgb Hct MCV MCH MCHC RDW Plt Count MPV Immature Gran % Seg Neutrophils % Lymphocytes % Monocytes % Eosinophils % Basophils % Neutrophils # Lymphocytes # Monocytes # Eosinophils # Basophils # Sodium Potassium Chloride Carbon Dioxide BUN Creatinine Est GFR ( Amer) Est GFR (Non-Af Amer) BUN/Creatinine Ratio Glucose POC Glucose 181 H 183 H 155 H Calculated Osmolality Calcium Phosphorus Magnesium Random Vancomycin 08/23/18 08/23/18 08/23/18 04:53 04:53 04:53 WBC 10.2 RBC 3.61 L Hgb 10.5 L Hct 32.5 L MCV 90.0 MCH 29.1 MCHC 32.3 RDW 14.6 H Plt Count 240 MPV 11.2 Immature Gran % 1.2 Seg Neutrophils % 68.5 Lymphocytes % 13.7 Monocytes % 10.1 Eosinophils % 5.6 Basophils % 0.9 Neutrophils # 7.0 Lymphocytes # 1.4 Monocytes # 1.0 Eosinophils # 0.6 Basophils # 0.1 Sodium 138 Potassium 3.7 Chloride 102 Carbon Dioxide 30 H BUN 16 Creatinine 0.65 Est GFR ( Amer) > 60 Est GFR (Non-Af Amer) > 60 BUN/Creatinine Ratio 25 Glucose 173 H POC Glucose Calculated Osmolality 291 Calcium 9.0 Phosphorus 3.2 Magnesium 1.7 Random Vancomycin 17 Cultures: Cultures 08/17/18 18:15 Anaerobic Culture - Final Right Leg No anaerobes were recovered. 08/17/18 12:37 Blood Culture - Final Peripheral Venipuncture No growth. Final report. 08/17/18 12:14 Blood Culture - Final Peripheral Venipuncture No growth. Final report. 08/17/18 18:15 Wound Culture - Final Right Leg Pseudomonas aeruginosa Escherichia coli Enterococcus faecalis Klebsiella pneumoniae ESBL Exam - Constitutional Vitals: Temp Pulse Resp BP Pulse Ox 97.6 F 95 16 147/88 95 08/23/18 10:20 08/23/18 10:20 08/23/18 10:20 08/23/18 10:20 08/23/18 10:20 Exam: Gen.: Vitals noted. No acute distress. AAOx3. Resting comfortably sitting up at bedside. HEENT: PERRL/EOMI, oropharynx clear, Normocephalic, atraumatic, MMM Cardiac: RRR, no murmur, +S1/S2 Pulmonary: CTA bilaterally, no wheezes, rales or rhonchi, equal chest expansion MSK: ROM intact, no joint swelling noted, muscle strength intact Extremities: Severe bilateral lymphedema with chronic stasis dermatitis. Superimposed right lower extremity erythema stable from previous exam. Some pain with palpation. No warmth, drainage appreciated. Wound VAC in place on right with minimal brown serous fluid. Surrounding area non infected appearing. nontender calf, no cyanosis or clubbing. Bandage is removed today and lymphedema appears stable. Neuro: A&Ox3, moves all extremities, no focal deficits. Peripheral neuropathy at baseline, sensation intact Psych: Appropriate mood and behavior Consult Discharge Plan - Plan Instructions: Cellulitis (DC) Additional Instructions: Follow up in wound care center with Dr. Napier. Please make appointment prior to discharge. Please follow up with PCP in 2-3 days Referrals: Wild Napier DPM [Partnered Physician] - 08/30/18 9:30 am (Will be seen in the wound care center.) Prescriptions: RX: Atorvastatin [Lipitor] 40 mg PO HS 30 Days #30 tablet RX: Pregabalin [Lyrica] 150 mg PO TID 30 Days #90 capsule - Attending Attestation I examined this patient and my medical decision-making was reviewed with the Resident Physician. I agree with the documented findings, disposition and treatment plan as described except to the extent set forth below.
--- NOTE | 2018-08-23 14:13 | Podiatry Progress Note ---
Date of Encounter: 08/23/18 Time of Encounter: 14:10 - Assessment and Plan (1) Cellulitis of leg, right Current Visit: Yes Status: Acute RLE lymphedema with erythema noted. Area marked previously. Decreasing erythema and edema noted. ID following for ATB treatment (2) Chronic ulcer of right calf with fat layer exposed Current Visit: Yes Status: Acute Wound VAC in tact. Vac suction with good seal at 125 mmHg. To be changed Monday. Patient being d/c to [facility] swing bed. Will need follow up with Dr. Napier in 1 week in wound care center. Will need home care upon d/c from [facility]. (3) Lymphedema in adult patient Current Visit: Yes Status: Chronic Discussed keeping leg elevated and use of compression to help lymphedema. Verbalized understanding. Subjective Interval history: Patient awake in bed. Alert and Oriented 3. Patient states she is getting ingrid dy to be discharged to [place] for IV ATB therapy and wound vac therapy. State that [facility] has been calling her and stating she can not have home wound vac and needs it returned. States she is working with case management regarding this issue. Denies any fevers, chills, nausea, vomiting, or diarrhea. States she does not have pain to knee but does have tenderness to right thigh near nancy area. Reports decreased edema and erythema. Objective - Vital Signs Vital Signs: Vital Signs Temp Pulse Resp BP Pulse Ox 08/23/18 10:20 97.6 F 95 16 147/88 95 08/23/18 07:41 97.8 F 73 16 157/76 91 08/23/18 03:43 98.3 F 72 15 130/76 94 08/22/18 21:30 97.5 F L 71 16 150/74 94 Intake and Output 08/22/18 08/23/18 08/23/18 23:59 07:59 15:59 Intake Total 100 / 100 240 / 240 480 / 480 Output Total 900 / 900 750 / 750 0 / 0 Balance -800 / -800 -510 / -510 480 / 480 Intake: IV Fluids 100 / 100 INVanz 1,000 MG In 0.9 % Sodium 100 / 100 Chloride (Mini-Bag +) 100 ML @ 100 mls/hr IVPB DAILY [facility] Rx#: [id number] Oral 240 / 240 480 / 480 Output: Urine 900 / 900 750 / 750 0 / 0 Other: Meal Lunch Percent of Meal Consumed 100% Stool Size Copious Stool Consistency formed Stool Characteristics Tarry # Bowel Movements 0 1 Weight 171.8 kg Blood Glucose* 155 156 214 Patient Weight 08/23/18 23:59 Weight 171.8 kg - Exam Exam: Constitiutional: Alert and oriented x 3. Vascular: palpable DP/PT bilaterally, CFT <3 sec to all digits, warm to warm from tibia to toes bilaterally, lymphedema noted bilaterally, decreased edema noted from previous assessment Neurologic: sensation to touch, normal plantar response, Normal position sense dorsiflexion/plantar flexion Dermatologic: Wound VAC to right lower extremity intact suction at 125 mmHg, decreasing erythema noted from marked area Musculoskeletal: 3/5 muscle strength and normal tone bilaterally. - Lab Result Diagrams: 08/23/18 04:53 08/23/18 04:53 Labs: Abnormal lab results RBC 3.61 M/mcL (3.82-4.97) L 08/23/18 04:53 Hgb 10.5 g/dL (11.5-15.4) L 08/23/18 04:53 Hct 32.5 % (35.3-44.9) L 08/23/18 04:53 RDW 14.6 % (11.5-14.5) H 08/23/18 04:53 ESR 55 mm/hr (0-15) H 08/18/18 08:38 Carbon Dioxide 30 mEq/L (23-29) H 08/23/18 04:53 Glucose 173 mg/dL (70-105) H 08/23/18 04:53 POC Glucose 155 mg/dL (70-99) H 08/22/18 21:42 Hemoglobin A1c 6.6 % (-5.6) H 08/17/18 12:14 C-Reactive Protein 255 mg/L (Less than 10) H 08/18/18 08:38 Vancomycin Trough 40 mcg/mL (5-10) H 08/19/18 00:12 Microbiology, Last 48 Hours 08/17/18 18:15 Anaerobic Culture - Final Right Leg No anaerobes were recovered. 08/17/18 12:37 Blood Culture - Final Peripheral Venipuncture No growth. Final report. 08/17/18 12:14 Blood Culture - Final Peripheral Venipuncture No growth. Final report. 08/17/18 18:15 Wound Culture - Final Right Leg Pseudomonas aeruginosa Escherichia coli Enterococcus faecalis Klebsiella pneumoniae ESBL Consult Discharge Plan - Plan Instructions: Cellulitis (DC) Additional Instructions: Follow up in wound care center with Dr. Napier. Please make appointment prior to discharge. Referrals: Wild Napier DPM [Partnered Physician] - 08/30/18 9:30 am (Will be seen in the wound care center.) Prescriptions: Atorvastatin [Lipitor] 40 mg PO HS 30 Days #30 tablet Pregabalin [Lyrica] 150 mg PO TID 30 Days #90 capsule
--- NOTE | 2018-08-23 15:02 | Discharge Summary ---
<Leeann Alas - Last Filed: 08/23/18 15:00> - NOTES TO OUTPATIENT PROVIDER Notes to Outpatient Provider: Plan to continue vancomycin, Gentamicin, and ertapenem for 10 days until 09/01/18. F/U wound care with Dr. Napier. F/U with PCP in 2-3 days. Orders not resulted at time of discharge: Pending orders 08/24/18 04:00 Basic Metabolic Panel AM 0400 CBC [Complete Blood Count] [HEME] AM 0400 Magnesium AM 0400 Phosphorous AM 0400 Vancomycin,Random Timed 08/25/18 04:00 Basic Metabolic Panel AM 0400 CBC [Complete Blood Count] [HEME] AM 0400 Magnesium AM 0400 Phosphorous AM 0400 08/26/18 04:00 Basic Metabolic Panel AM 0400 CBC [Complete Blood Count] [HEME] AM 0400 Magnesium AM 0400 Phosphorous AM 0400 08/27/18 04:00 Basic Metabolic Panel AM 0400 CBC [Complete Blood Count] [HEME] AM 0400 Magnesium AM 0400 Phosphorous AM 0400 08/28/18 04:00 Basic Metabolic Panel AM 0400 CBC [Complete Blood Count] [HEME] AM 0400 Magnesium AM 0400 Phosphorous AM 0400 Date of Encounter: 08/23/18 Time of Encounter: 15:00 - Discharge Diagnosis (1) Cellulitis of leg, right Priority: Primary Status: Acute (2) Chronic ulcer of right calf with fat layer exposed Priority: Secondary Status: Acute (3) SIRS (systemic inflammatory response syndrome) Priority: Secondary Status: Resolved (4) Left knee pain Priority: Secondary Status: Acute Qualifiers: Chronicity: acute Qualified Code(s): M25.562 - Pain in left knee (5) DVT (deep venous thrombosis) Priority: Secondary Status: Chronic Qualifiers: DVT location: lower extremity Affected thrombotic vein of extremity: unspecified vein of extremity Chronicity: chronic Laterality: bilateral Qualified Code(s): I82.503 - Chronic embolism and thrombosis of unspecified deep veins of lower extremity, bilateral (6) Diabetes Priority: Secondary Status: Chronic Qualifiers: Diabetes mellitus type: type 2 Diabetes mellitus reel stripper insulin use: with reel stripper use Diabetes mellitus complication status: with hyperglycemia Qualified Code(s): E11.65 - Type 2 diabetes mellitus with hyperglycemia; Z79.4 - long term acute care registered nurse (current) use of insulin (7) Hypertension Priority: Secondary Status: Chronic Qualifiers: Hypertension type: essential hypertension Qualified Code(s): I10 - Essential (primary) hypertension (8) Lymphedema in adult patient Priority: Secondary Status: Chronic (9) Venous stasis dermatitis Priority: Secondary Status: Chronic Qualifiers: Laterality: bilateral Qualified Code(s): I87.2 - Venous insufficiency (chronic) (peripheral) (10) Morbid obesity Priority: Secondary Status: Chronic Hospital course: Ms. Chiang is a 48 year old female with PMHx HTN, HLD, DVT on Xarelto, DMII, morbid obesity who recently had right leg hematoma s/p I and D as well as excisional debridement to muscle wound of right leg with wound vac. Presented s/p fall at home due to left knee pain and worsening right lower extremity redness. In ED, Right Knee XR showed no acute osseous abnormality of right knee, but suspected subcutaneous gas at lateral right knee. Left knee XR showed no acute left knee fracture, but severe OA. Lower Ext Doppler was negative for DVT. Pt was admitted for IV antibiotics due to cellulitis. Pt initially met SIRS criteria with elevated white count and source of infection as right leg cellulitis which resolved over course of hospital admission. Pt started on meropenem and vancomycin, pending wound cultures and blood cultures. Podiatry monitored while inpatient for care of right leg ulcer and wound vac. Cellulitis initially spread from anteromedial thigh down to right ankle. Associated with swelling, tenderness to palpation. Erythema slowly resolved with antibiotics. ID was consulted for antibiotic recommendations. Wound Culture grew E. Coli, Klebsiella, Pseudomonas, and Enterococcus faecalis. Final ID rec sent patient home with Ertapenem, Vancomycin, and topical Gentamicin. Additionally, patient was worked up due to subcutaneous gas identified at level of right lateral knee. Right Tibia/Fibular XR: No acute osseous abnormality of right tib and fib; susp ected subcutaneous gas identified at level of lateral knee CT Right Knee Without Contrast: Few foci of superficial soft tissue air in the lateral soft tissues of knee - question of enveloping collection measuring 6.6 x 2.6cm - possibly abscess; foci of air far removed from supericial and deep fascia so unlikely necrotizing fasciitis; generalized soft tissue swelling - either vascular vs cellulitis CT right lower extremity with contrast: Extensive subcut. fat stranding and skin thickening in right thigh and medial aspect of left thigh, and anterior aspect of lower abdominal wall --> sterile edema vs cellulitis; no drainable fluid collection identified; no acute osseous abnormality Plan to discharge patient home with home health care. Hemodynamically stable. Will continue Gentamicin, VAncomycin, Ertapenem for 10 days today until 09/01. Cont wound vac and follow up with Dr. Napier. Follow-up with PCP in 2-3 days. Discharge discussed with: patient - Time Spent with Patient Total time spent providing and/or coordinating discharge services: Less than 30 minutes - Discharge Medications Prescriptions: Atorvastatin [Lipitor] 40 mg PO HS 30 Days #30 tablet Pregabalin [Lyrica] 150 mg PO TID 30 Days #90 capsule Home Medications: Diltiazem CD (24hr) [Cardizem CD] 240 mg PO BID 08/11/15 [History] hydrOXYzine pamoate [HydrOXYzine Pamoate] 25 - 50 mg PO Q6H PRN 08/11/15 [History] Ferrous Sulfate 325 mg PO BIDWM 03/22/17 [History] Furosemide [Lasix] 40 mg PO BID 03/22/17 [History] Insulin Glargine,Hum.rec.anlog [Toujeo Solostar] 65 unit SQ BID 03/22/17 [History] Melatonin 5 mg PO HS 03/22/17 [History] Methocarbamol [Robaxin] 750 mg PO HS 03/22/17 [History] Dulaglutide [Trulicity] 0.75 mg SQ QWEEK 03/21/18 [History] Montelukast [Singulair] 10 mg PO HS 03/21/18 [History] Oxybutynin [Ditropan] 5 mg PO BID 03/21/18 [History] Rivaroxaban [Xarelto] 10 mg PO DAILY #30 tablet 03/21/18 [Rx] FLUoxetine HCl [Prozac] 40 mg PO DAILY 07/02/18 [History] Insulin LISPRO [HumaLOG] 50 units SQ TIDWM 07/02/18 [History] Omeprazole [PriLOSEC] 40 mg PO DAILY 07/02/18 [History] Promethazine [Phenergan] 25 mg PO Q8H PRN 07/02/18 [History] Acetaminophen [Tylenol] 650 mg PO Q6HR PRN tablet 07/09/18 [Rx] Irbesartan [Avapro] 150 mg PO DAILY 08/17/18 [History] Metformin HCl 1,000 mg PO BID 08/17/18 [History] Nabumetone [Relafen] 500 mg PO DAILY 08/17/18 [History] Oxycodone HCl 15 mg PO BID 08/17/18 [History] Rosuvastatin Calcium 20 mg PO DAILY 08/17/18 [History] Dulaglutide [Trulicity] 1.5 mg SQ WE 08/18/18 [History] Pregabalin [Lyrica] 150 mg PO TID 08/18/18 [History] Atorvastatin [Lipitor] 40 mg PO HS 30 Days #30 tablet 08/23/18 [Rx] Pregabalin [Lyrica] 150 mg PO TID 30 Days #90 capsule 08/23/18 [Rx] Allergies/Adverse Reactions: Allergy/AdvReac Type Severity Reaction Status Date / Time Penicillins Allergy Intermediate Rash Verified 03/21/18 13:13 pioglitazone [From Actos] Allergy Intermediate See Verified 03/21/18 13:13 Comments sitagliptin [From Januvia] Allergy Intermediate See Verified 03/21/18 13:13 Comments Sulfa (Sulfonamide Allergy Intermediate Hives Verified 03/21/18 13:13 Antibiotics) nabumetone Allergy Muscle Pain Verified 03/21/18 13:13 sulfamethoxazole Allergy Rash Verified 03/21/18 13:13 [From Bactrim] trimethoprim [From Bactrim] Allergy Rash Verified 03/21/18 13:13 Date of admission: 08/17/18 17:43 Primary care physician: Delfino Valdes DO Consults: 08/17/18 17:12 Consult to Podiatry [CONS] Routine Consulting Provider: Podiatry [facility] Reason for Consult: Rt leg cellulities - s/p Rt leg wound vac bag+ Time Notified: 17:14 Call Completed: Yes 08/18/18 08:33 Consult to Orthopedic Surgery [CONS] Routine Consulting Provider: Kriss Harp Reason for Consult: Right LE XR shows subqutaneous gas at the level of the lateral right knee Time Notified: 08:34 Call Completed: Yes 08/18/18 11:22 Consult to Infectious Diseases [CONS] Routine Consulting Provider: [facility]ious [facility] Reason for Consult: Histry of ACinitobacter MDRO wound, currently hospitalized for cellulitis of same leg Call Completed: No 08/21/18 09:55 Consult to Physical Therapy [CONS] Routine Comment: Evaluate, develop and implement POC Reason for Consult: discahrge planning Does patient have active BEDREST order?: No Is patient medically & hemodynamically stable?: Yes Patient assessed for mobility or mobilized this visit?: No 08/22/18 10:42 OT [Consult to Occupational Therapy] [CONS] Routine Comment: Evaluate, develop and implement POC Reason for Consult: cellulitis Does patient have active BEDREST order?: No Is patient medically & hemodynamically stable?: Yes Patient assessed for mobility or mobilized this visit?: Yes 08/22/18 15:08 Consult to Allergy/Immunology [CONS] Routine Consulting Provider: Onelia Munoz Reason for Consult: allergy to penicillin Call Completed: Yes 08/22/18 15:39 Consult to Orthopedic Surgery [CONS] Routine Consulting Provider: [facility] Reason for Consult: knee pain with subcutaneous gas and osteoarthritis Call Completed: Yes 08/23/18 09:48 Consult to Cargo And Container Inspector [CONS] Routine Reason for SW Consult: will be going home with IV ATB/ has [facility] 08/23/18 09:53 Consult to Invasive Line Access Team [CONS] Routine Reason for Consult: HOME IV ATB Line Type: EPIV 08/23/18 12:28 Consult to Invasive Line Access Team [CONS] Routine Reason for Consult: long term acute care registered nurse IV ATB Line Type: Midline Discharging clinician: Leeann Alas Anticipated date of discharge: 08/23/18 - Constitutional Vitals: Temp Pulse Resp BP Pulse Ox 97.6 F 95 16 147/88 95 08/23/18 10:20 08/23/18 10:20 08/23/18 10:20 08/23/18 10:20 08/23/18 10:20 General appearance: Present: cooperative, A&O X 3, no acute distress, answers questions appropriately Exam: GEN: AOx3, NAD; resting comfortably in bed HEENT: Normocephalic, atraumatic, EOMI CARDIO: RRR, no murmurs, rubs, gallups PULM: CTAB, no wheezes, rales, rhonchi ABD: Soft, non-tender, non-distended EXT: RLE: decreasing erythema - currently only over medial aspect of right thigh; decreased swelling and tenderness to palpation; evidence of venous stasis dermatitis of b/l lower extremities; lymphedema of b/l lower extremities; no crepitus appreciated medially or laterally around right knee; wound vac to right lower extremity draining yellow-brown serous fluid - 75ccs collected at time of exam - Patient Status Disposition: Home Health Service Condition: Fair Overall status at discharge: patient is progressing back to baseline - Discharge Instructions Instructions: Cellulitis (DC) Follow Up With: Wild Napier DPM [Partnered Physician] - 08/30/18 9:30 am (Will be seen in the wound care center.) Additional Instructions: Follow up in wound care center with Dr. Napier. Please make appointment prior to discharge. Please follow up with PCP in 2-3 days - Diet and Activity Activity: increase activity as tolerated Diet: diabetic diet, low fat, low cholesterol <Dipika Loydo A - Last Filed: 08/23/18 16:13> Orders not resulted at time of discharge: Pending orders 08/24/18 04:00 Basic Metabolic Panel AM 0400 CBC [Complete Blood Count] [HEME] AM 0400 Magnesium AM 0400 Phosphorous AM 0400 Vancomycin,Random Timed 08/25/18 04:00 Basic Metabolic Panel AM 0400 CBC [Complete Blood Count] [HEME] AM 0400 Magnesium AM 0400 Phosphorous AM 0400 08/26/18 04:00 Basic Metabolic Panel AM 0400 CBC [Complete Blood Count] [HEME] AM 0400 Magnesium AM 0400 Phosphorous AM 0400 08/27/18 04:00 Basic Metabolic Panel AM 0400 CBC [Complete Blood Count] [HEME] AM 0400 Magnesium AM 0400 Phosphorous AM 0400 08/28/18 04:00 Basic Metabolic Panel AM 0400 CBC [Complete Blood Count] [HEME] AM 0400 Magnesium AM 0400 Phosphorous AM 0400 Date of Encounter: 08/23/18 - Discharge Diagnosis (1) Cellulitis of leg, right Status: Acute (2) Morbid obesity Status: Chronic (3) Venous stasis dermatitis Status: Chronic Qualifiers: Laterality: bilateral Qualified Code(s): I87.2 - Venous insufficiency (chronic) (peripheral) (4) Diabetes Status: Chronic Qualifiers: Diabetes mellitus type: type 2 Diabetes mellitus fdc insulin use: with fdc use Diabetes mellitus complication status: with hyperglycemia Qualified Code(s): E11.65 - Type 2 diabetes mellitus with hyperglycemia; Z79.4 - longterm (current) use of insulin (5) Hypertension Status: Chronic Qualifiers: Hypertension type: essential hypertension Qualified Code(s): I10 - Essential (primary) hypertension (6) Knee pain Status: Acute (7) DVT (deep venous thrombosis) Status: Chronic Qualifiers: DVT location: lower extremity Affected thrombotic vein of extremity: unspecified vein of extremity Chronicity: chronic Laterality: bilateral Qualified Code(s): I82.503 - Chronic 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 Chiang is a 48 year old female - Time Spent with Patient Total time spent providing and/or coordinating discharge services: Date of admission: 08/17/18 17:43 Primary care physician: Delfino Valdes DO Consults: 08/17/18 17:12 Consult to Podiatry [CONS] Routine Consulting Provider: [facility] Reason for Consult: Rt leg cellulities - s/p Rt leg wound vac bag+ Time Notified: 17:14 Call Completed: Yes 08/18/18 08:33 Consult to Orthopedic Surgery [CONS] Routine Consulting Provider: Kriss Harp Reason for Consult: Right LE XR shows subqutaneous gas at the level of the lateral right knee Time Notified: 08:34 Call Completed: Yes 08/18/18 11:22 Consult to Infectious Diseases [CONS] Routine Consulting Provider: Infectious Disease [facility] Reason for Consult: Histry of ACinitobacter MDRO wound, currently hospitalized for cellulitis of same leg Call Completed: No 08/21/18 09:55 Consult to Physical Therapy [CONS] Routine Comment: Evaluate, develop and implement POC Reason for Consult: discahrge planning Does patient have active BEDREST order?: No Is patient medically & hemodynamically stable?: Yes Patient assessed for mobility or mobilized this visit?: No 08/22/18 10:42 OT [Consult to Occupational Therapy] [CONS] Routine Comment: Evaluate, develop and implement POC Reason for Consult: cellulitis Does patient have active BEDREST order?: No Is patient medically & hemodynamically stable?: Yes Patient assessed for mobility or mobilized this visit?: Yes 08/22/18 15:08 Consult to Allergy/Immunology [CONS] Routine Consulting Provider: [facility] Reason for Consult: allergy to penicillin Call Completed: Yes 08/22/18 15:39 Consult to Orthopedic Surgery [CONS] Routine Consulting Provider: [facility] Reason for Consult: knee pain with subcutaneous gas and osteoarthritis Call Completed: Yes 08/23/18 09:48 Consult to Cargo And Container Inspector [CONS] Routine Reason for SW Consult: will be going home with IV ATB/ has [facility] 08/23/18 09:53 Consult to Invasive Line Access Team [CONS] Routine Reason for Consult: HOME IV ATB Line Type: EPIV 08/23/18 12:28 Consult to Invasive Line Access Team [CONS] Routine Reason for Consult: long term acute care registered nurse IV ATB Line Type: Midline - Constitutional Vitals: Temp Pulse Resp BP Pulse Ox 97.6 F 95 16 147/88 95 08/23/18 10:20 08/23/18 10:20 08/23/18 10:20 08/23/18 10:20 08/23/18 10:20 - Attending Attestation I saw and assessed this patient and agree with discharge summary per resident as above Exam EXT: R LE: tender to palpation on anteromedial aspect of right thigh with swelling; erythema that spreads from medial thigh to lower extremity Plan Right leg cellulitis. Wound cultures growing ESBL klebsiella, E.coli, pseudomonas and enterococci. Continue IV antibiotics with Vanc, ertapenem and topical gentamicin to complete 10 day course. Follow cultures Right knee subcutaneous gas. No acute intervention per orthopedic surgery
[2018-08-23] MEDS ORDERED: Aminoglycoside Consult 1 EACH MC ONE (18:26)
== END 2018-08-23 18:27 | disposition other institution (70) | DRG 872 ==
LOC: 3ANU 12:00 → EMEROOARM 12:00 → 3ANU 16:16 → SUATTDRO 17:43
PROVIDERS: ADMIT Internal Medicine; ATTEND Student in an Organized Health Care Education/Training Program